=== PATIENT | male | born 1945 | race Caucasian/White ===

== ENCOUNTER → 2017-11-23 | Outpatient (CLI) | payer OTHER ==
--- NOTE | 2017-11-23 08:36 | XR ---
EXAMINATION TYPE: XR orbit detect foreign body DATE OF EXAM: 11/23/2017 COMPARISON: NONE HISTORY: Pre-MRI clearance. TECHNIQUE: 3 views of the orbits were obtained. FINDINGS: No radiopaque or metallic foreign body is seen within the orbits. There is minimal dependen t left maxillary sinus mucosal thickening. Remainder of the paranasal sinuses appear well aerated. Th ere is slight rightward nasal septal deviation. Sella turcica is unremarkable. Visualized portions o f the calvarium and osseous structures appear intact. Nasopharynx and visualized oropharynx are paten t. IMPRESSION: No radiopaque orbital foreign body. Scant left maxillary mucosal thickening.
--- NOTE | 2017-11-23 10:47 | MR ---
EXAMINATION TYPE: MR shoulder LT wo con DATE OF EXAM: 11/23/2017 COMPARISON: NONE HISTORY: Left shoulder pain TECHNIQUE: Multiplanar, multisequence imaging of the left shoulder is performed without contrast. FINDINGS: There is a partial tear involving the insertion of the posterior fibers infraspinatus tendon measurin g 1 x 0.5 cm. No evidence of retraction. There is a partial through thickness tear measuring 14 mm involving the body and anterior fibers of t he supraspinatus tendon with no evidence of retraction. Subscapularis tendon intact. Intrasubstance signal seen within the intracapsular portion of the biceps tendon suggestive of tendin osis or partial intrasubstance tear. No retraction. Inferior glenohumeral ligament intact. No abnormal signal within the suprascapular notch. No marrow edema or contusion. There is hypertrophic change of the AC joint which does appear to resul t in mild impingement of the supraspinatus muscle and tendon. There is abnormal signal and morphology of the posterior superior labrum suggestive of tear. IMPRESSION: 1. Partial through thickness tear measuring 14 mm involving the body and anterior fibers supraspinatu s tendon with no retraction. 2. Partial non through thickness tear insertion posterior fibers infraspinatus tendon measuring 1 x 0 .5 cm. 3. Posterior superior labral tear. SLAP lesion suspected. 4. Arthropathy of the AC joint.
== END | disposition home or self-care (01) ==
LOC: RADMRIMAIN 08:16
PROVIDERS: ATTEND Orthopaedic Surgery
DX: S46.812A Strain of other muscles, fascia and tendons at shoulder and upper arm level, left arm, initial encounter (principal); S43.492A Other sprain of left shoulder joint, initial encounter; M12.812 Other specific arthropathies, not elsewhere classified, left shoulder; Z01.818 Encounter for other preprocedural examination
CPT/HCPCS: 70030

== ENCOUNTER 2018-01-05 06:08 | Day surgery (SDC) | payer OTHER ==
[2017-12-28 16:51] VITALS: BMI 34.0
--- NOTE | 2018-01-04 12:31 | HP ---
HISTORY AND PHYSICAL DATE OF SERVICE: 01/05/2018 Niko Owen is a 72-year-old patient seen with left shoulder pain. We discussed treatment options. He elected to proceed with arthroscopy. Consent was obtained. Medical clearance was received from the [facility]. PAST MEDICAL HISTORY: Hypertension and insulin-dependent diabetes, gastroesophageal reflux disease, hyperlipidemia. PAST SURGICAL HISTORY: Right eye surgery. DAILY MEDICATIONS: 1. Atenolol. 2. Glipizide. 3. Metformin. 4. Omeprazole. 5. Pravastatin. 6. Tramadol. ALLERGIES: None reported. SOCIAL HISTORY: Patient denies current tobacco use. PHYSICAL EVALUATION OF THE LEFT SHOULDER: Flexion 90 degrees, abduction 70 degrees, external rotation is 50 degrees with pain and weakness. There is tenderness along the anterolateral acromion rotator cuff insertion site. Positive impingement sign at 70 degrees. Drop-arm sign positive. Distal neurovascular exam intact. RADIOGRAPHS: Left shoulder revealed a type 2 anterior acromion and cystic changes of the greater tuberosity. An MRI of the left shoulder revealed rotator cuff tear, labral tear and acromioclavicular joint osteoarthritis. IMPRESSION: 1. Left shoulder impingement with rotator cuff tear. 2. Left shoulder acromioclavicular joint osteoarthritis. 3. Hypertension. 4. Cei-xjqqesp-ahguvntmq diabetes. 5. Hyperlipidemia. PLAN: Left shoulder arthroscopy with subacromial decompression, probable arthroscopic rotator cuff repair, probable Osmar procedure and debridement. MMODL / IJN: [id number] /
[~2018-01-05 06:08] MED LIST: DEXAMETHASONE SOD PHOSPHATE 10 MG/ML 1 ML VIAL IV ONE; HYDROmorphone 0.5 MG/0.5 ML SYRINGE IVP PRN; LACTATED RINGERS 1,000 ML IV SCH; MIDAZOLAM 2 MG/2 ML VIAL IV PRN; ONDANSETRON 4 MG/2 ML VIAL IVP ONE; ceFAZolin IN SWFI 2 GM/20 ML SYRINGE IVP ONE
[2018-01-05 06:44] LABS: Glucose,Whole Blood 187 mg/dL (75-99)
[2018-01-05] MEDS ORDERED: LIDOCAINE 1% 20 ML VIAL (10MG/ML) FOR IV START INTRADERMA ONE (06:54)
[2018-01-05] MEDS ORDERED: fentaNYL (PF) 50 MCG/ML 2 ML AMP IV ONE (07:09)
--- NOTE | 2018-01-05 07:18 | P.ONQ ---
Anesthesiology Proc Note - PNB - Peripheral Nerve Block Performed Left Interscalene Single Time Out Performed: Yes Procedure Start Time: 07:00 Indication: Acute Post-Operative Pain, Analgesia Specifically requested for management of pain by DrCriss: Raheel Dangelo Sedation Type: Sedate with meaningful contact maintained Preparation: Sterile Prep Position: Supine Catheter: None Needle Types: Other (see comment) (stimuplex) Needle Size: 50mm (2") Needle Gauge: 21 Technique: Ultrasound Injectate: 0.5% Ropivacaine (see comment for volume) (30cc) Blood Aspirated: No Pain Paresthesia on Injection Noted: No Resistance on Injection: Normal Events: Uneventful and Well Tolerated
[2018-01-05] MEDS ORDERED: PHENYLEPHRINE-0.9% NACL SYG 1 MG/10 ML SYRINGE ONE (07:30)
[2018-01-05] MEDS ORDERED: ROPIVACAINE 5 MG/ML 30 ML VIAL ONE (07:30)
[2018-01-05] MEDS ORDERED: LIDOCAINE 1% INJ 10MG/ML (20 ML MDV) ONE (07:30)
[2018-01-05] MEDS ORDERED: SUCCINYLCHOLINE CHLORIDE 100 MG/5 ML SYR IV ONE (07:30)
[2018-01-05] MEDS ORDERED: PROPOFOL 10 MG/ML 20 ML VIAL IV ONE (07:30)
[2018-01-05] MEDS ORDERED: KETOROLAC 30 MG/ML 1 ML VIAL ONE (07:30)
[2018-01-05] MEDS ORDERED: ePHEDrine SULFATE/0.9% NACL/PF 50 MG/5 ML SYRINGE IV ONE (07:30)
[2018-01-05] MEDS ORDERED: LIDOCAINE 2%-EPI 1:100,000 20 ML VIAL ONE (07:30)
[2018-01-05] MEDS ORDERED: MIDAZOLAM 2 MG/2 ML VIAL ONE (07:30)
[2018-01-05] MEDS ORDERED: fentaNYL (PF) 50 MCG/ML 2 ML AMP ONE (07:30)
[2018-01-05] MEDS ORDERED: LACTATED RINGERS 1,000 ML IV ONE (08:59)
[2018-01-05 09:16] VITALS: TEMP 97.1
--- NOTE | 2018-01-05 09:21 | P.OP ---
Date of Procedure: 01/05/18 Preoperative Diagnosis: Left shoulder impingement Postoperative Diagnosis: 1. Left shoulder rotator cuff repair 2. Left shoulder impingement 3. Left shoulder acromioclavicular joint osteoarthritis 4. Left shoulder partial long head biceps tendon tear 5. Left shoulder superficial anterior/superior labral tear Procedure(s) Performed: 1. Left shoulder arthroscopic rotator cuff repair 2. Left shoulder arthroscopic subacromial decompression 3. Left shoulder arthroscopic Osmar procedure 4. Left shoulder arthroscopic biceps tenotomy 5. Left shoulder arthroscopic debridement labral tear Implants: 1-5.5 peek anchor Anesthesia: GETA, regional (Interscalene block) Surgeon: Raheel Dangelo Human Resources Operations Coordinator #1: Chaz Tran Estimated Blood Loss (ml): 12 Pathology: none sent Condition: stable Disposition: PACU Indications for Procedure: 72-year-old patient seen with progressive left shoulder pain. After treatment options were discussed, he elected to proceed with arthroscopy. Operative Findings: See description of procedure Description of Procedure: Patient underwent a shoulder block by department of anesthesia. The patient was then taken to the operative suite. The patient underwent a general anesthetic by the department of anesthesia. The patient was placed into a lateral position and secured. There was appropriate padding of the bony prominence. Left shoulder was then prepped and draped in normal sterile orthopedic fashion. We placed the extremity in 10 pounds of longitudinal traction. A posterior incision was now made for a posterior working portal site. The trocar and cannula were inserted into the glenohumeral joint. Arthroscopy was initiated. Spinal needle was now inserted anteriorly, to ascertain the anterior working portal site. An incision was now made in that area, a trocar was inserted followed by a probe. There was superficial tearing of the anterior and superior labrum. There were grade 1 chondromalacia changes of glenohumeral joint. No osteochondral tears were present. The posterior and inferior labrum were intact. There was some partial tearing and hyperemia long head biceps tendon. No loose bodies. I performed an arthroscopic biceps tenotomy. I debrided the superficial labral tears down to stable tissue. The residual labrum was found to be stable. Instruments were now removed from the glenohumeral joint. Utilizing the posterior working portal site, the trocar and cannula were inserted into the subacromial space. Arthroscopy initiated. I made an incision 2 fingerbreadths lateral to the acromion. I introduced my trocar followed by my ArthroCare ablator. I now began ablating thick subacromial bursal tissue, which exposed the undersurface of the anterior acromion. This was diminished subacromial space. There was a very prominent anterior acromion. A motorized bur was introduced and a subacromial decompression was performed. I also excised some osteophytes off the inferior aspect of the distal clavicle. The AC joint was visualized and noted to be fairly arthritic. Our motorized bur was introduced in the anterior portal site and a Osmar procedure was performed without difficulty, decompressing the AC joint nicely. I turned my attention to the rotator cuff. There was a rotator cuff tendon present along the anterior aspect distal supraspinatus. I debrided the margins down to stable tissue. The tear measured 1-1.5 cm and it was freely mobile over the footprint. I abraded the footprint with a motorized bur. I now passed 2 everted mattress sutures through good bites of rotator cuff tendon. I now repaired that tendon back to the footprint with one single 5.5 peek anchor. The residual suture limbs were clipped. The repair was probed and found to be stable. I injected 1 mL of UCT intra-articular. Instruments now removed from the portal sites. All portal sites were approximated with nylon suture. Sterile dressings were applied followed by a shoulder immobilizer. Montrell WHITE assisted with the procedure. The patient was awakened, transferred to a bed, and taken to recovery in stable condition.
[2018-01-05 09:26] LABS: Glucose,Whole Blood 188 mg/dL (75-99)
[2018-01-05 10:47] VITALS: BP 139/82; PULSE 82; RESP 20
== END 2018-01-05 11:17 | disposition home or self-care (01) ==
LOC: OR 06:08
PROVIDERS: ATTEND Orthopaedic Surgery
DX: M75.102 Unspecified rotator cuff tear or rupture of left shoulder, not specified as traumatic (principal); M25.812 Other specified joint disorders, left shoulder; M19.012 Primary osteoarthritis, left shoulder; S46.112A Strain of muscle, fascia and tendon of long head of biceps, left arm, initial encounter; S43.432A Superior glenoid labrum lesion of left shoulder, initial encounter; M94.212 Chondromalacia, left shoulder; M25.712 Osteophyte, left shoulder; X58.XXXA Exposure to other specified factors, initial encounter; I10 Essential (primary) hypertension; E11.9 Type 2 diabetes mellitus without complications; Z79.4 Long term (current) use of insulin; K21.9 Gastro-esophageal reflux disease without esophagitis; Z87.891 Personal history of nicotine dependence; Z79.899 Other long term (current) drug therapy; Z79.1 Long term (current) use of non-steroidal anti-inflammatories (NSAID)
CPT/HCPCS: 64415; 29826; 29827; 29824; C1713; C1765; J2250; J1100; J2405; J2001; J3010; J1885; J2795; J2370; J0330; J2704; J0690

== ENCOUNTER → 2019-02-24 | Outpatient (CLI) | payer OTHER | LOC: LABPAT 13:34 | PROVIDERS: ATTEND Orthopaedic Surgery | DX: Z01.812 Encounter for preprocedural laboratory examination (principal) | CPT/HCPCS: 87070 ==

== ENCOUNTER 2019-03-27 10:57 | Inpatient (IN) | payer OTHER ==
--- NOTE | 2019-03-26 17:08 | HP ---
HISTORY AND PHYSICAL REASON FOR ADMISSION: Surgery is scheduled for 03/27/2019 HISTORY OF PRESENT ILLNESS: Niko Owen is a 73-year-old patient seen with symptomatic left knee osteoarthritis. We discussed options for treatment. He elected to proceed with left total knee arthroplasty. Consent regarding the procedure was obtained. Medical clearance was provided through the [facility]. PAST MEDICAL HISTORY: Tyq-wwpvmdt-cxdfqcbgk dependent diabetes, hyperlipidemia, hypertension, gastroesophageal reflux disease. PAST SURGICAL HISTORY: Eye surgery. MEDICATIONS: Atenolol, glipizide, metformin, omeprazole, pravastatin. ALLERGIES: None. SOCIAL HISTORY: Denies current tobacco use. PHYSICAL EXAMINATION: Evaluation of the left knee range of motion is negative 4 to 110 degrees. Moderate effusion. Tenderness medial joint line. Crepitus medial and patellofemoral compartments. Pain with patellofemoral compression. Ligaments stable. Hip rotation without pain. Distal neurovascular exam intact. RADIOGRAPHS: Left knee radiographs reveal severe medial moderate patellofemoral compartment osteoarthritis. IMPRESSION: 1. Left knee osteoarthritis. 2. Hypertension. 3. Hyperlipidemia. 4. Gastroesophageal reflux disease. 5. Hnc-fkazywi-ttdylifzg diabetes. PLAN: Left total knee arthroplasty. Surgery scheduled for 03/27/2019 MMODL / IJN: [id number] /
[~2019-03-27 10:57] MED LIST changes: +ACETAMINOPHEN TAB 500 MG TAB PO ONE; -HYDROmorphone 0.5 MG/0.5 ML SYRINGE IVP PRN; -LACTATED RINGERS 1,000 ML IV SCH; +LIDOCAINE 1% 20 ML VIAL (10MG/ML) FOR IV START INTRADERMA PRN; +MELOXICAM 7.5 MG TAB PO ONE; +TRANEXAMIC ACID 1,000 MG in SODIUM CHLORIDE 0.9% 100 ML IVPB ONE; +ceFAZolin 3 GM in SODIUM CHLORIDE 0.9% 100 ML IVPB ONE; -ceFAZolin IN SWFI 2 GM/20 ML SYRINGE IVP ONE; +fentaNYL (PF) 50 MCG/ML 2 ML AMP IV PRN
[2019-03-27] MEDS: LACTATED RINGERS 1,000 ML IV SCH ×2 (11:56→16:52)
[2019-03-27 12:01] LABS: Glucose,Whole Blood 168 mg/dL (75-99)
[2019-03-27] MEDS ORDERED: ROPIVACAINE 246.25 MG, EPINEPHrine 0.5 MG, KETOROLAC 30 MG, cloNIDine HCL/PF 80 MCG, WA... MISCELLANE ONE ×5 (12:15)
[2019-03-27] MEDS ORDERED: MIDAZOLAM (PF) 2 MG/2 ML VIAL IVP ONE (12:24)
[2019-03-27] MEDS ORDERED: TRANEXAMIC ACID 1,000 MG/10 ML VIAL ONE (13:05)
[2019-03-27] MEDS ORDERED: fentaNYL (PF) 50 MCG/ML 2 ML AMP ONE (13:05)
[2019-03-27] MEDS ORDERED: MORPHINE SULFATE 10 MG/ML SYRINGE ONE (13:05)
[2019-03-27] MEDS ORDERED: PROPOFOL 10 MG/ML 20 ML VIAL IV ONE (13:05)
[2019-03-27] MEDS ORDERED: SODIUM CHLORIDE 0.9% 100 ML BAG ONE (13:05)
[2019-03-27] MEDS ORDERED: MIDAZOLAM 2 MG/2 ML VIAL ONE (13:05)
[2019-03-27] MEDS ORDERED: ceFAZolin 3,000 MG in SODIUM CHLORIDE 0.9% IRRIGATIO 3,000 ML IRRIGATION ONE (13:49)
[2019-03-27] MEDS ORDERED: LACTATED RINGERS 1,000 ML IV ONE (14:01)
[2019-03-27] MEDS ORDERED: ROPIVACAINE 1,100 MG, SODIUM CHLORIDE 0.9% 500 ML 330 ML MISCELLANE PRN ×2 (14:45)
--- NOTE | 2019-03-27 14:55 | P.ONQ ---
Anesthesiology Proc Note - PNB - Peripheral Nerve Block Performed Left Adductor Canal Infusion Time Out Performed: Yes Procedure Start Time: 12:24 Procedure Stop Time: 12:33 Indication: Acute Post-Operative Pain, Requested by physician Sedation Type: Sedate with meaningful contact maintained Preparation: Sterile Dressing Position: Supine Catheter: Indwelling Needle Types: On-Q Needle Size: 100mm (4") Needle Gauge: 21 Technique: Ultrasound Injectate: 0.5% Ropivacaine (see comment for volume) (ropi .5% 30cc) Blood Aspirated: No Pain Paresthesia on Injection Noted: No Resistance on Injection: Normal Events: Uneventful and Well Tolerated
[2019-03-27] MEDS ORDERED: HYDROcodone/APAP 5-325MG 1 EACH TAB PO PRN (15:11)
[2019-03-27] MEDS ORDERED: ONDANSETRON 4 MG/2 ML VIAL IVP PRN (15:11)
[2019-03-27] MEDS ORDERED: HYDROmorphone 0.5 MG/0.5 ML SYRINGE IVP PRN ×3 (15:11)
[2019-03-27] MEDS ORDERED: NALOXONE 0.4 MG/ML 1 ML VIAL IV PRN (15:11)
--- NOTE | 2019-03-27 15:11 | P.OP ---
Date of Procedure: 03/27/19 Preoperative Diagnosis: Left knee osteoarthritis Postoperative Diagnosis: Left knee osteoarthritis Procedure(s) Performed: Left total knee arthroplasty Implants: 1. Microport evolution CR size 7 left cemented femur 2. Microport evolution size 7 left cemented tibial baseplate 3. Microport evolution size 7 MP CS 10 mm polyethylene tibial insert 4. Microport advance 41 mm all polyethylene cemented patella Anesthesia: regional (Adductor canal catheter), local, spinal Surgeon: Raheel Dangelo X Ray Operator #1: Chaz Tran Estimated Blood Loss (ml): 50 Pathology: other (Bone) Condition: stable Disposition: PACU Indications for Procedure: 73-year-old patient seen with symptomatic left knee osteoarthritis. After treatment options were discussed, he elected to proceed with total knee arthroplasty. Operative Findings: See description of procedure Description of Procedure: Patient was taken to the operative suite after having an adductor canal catheter placed by the department of anesthesia for postoperative pain management. Patient underwent a spinal anesthetic by the department of anesthesia. Patient was given preoperative IV intake antibiotics and TXA. A well-padded tourniquet was placed about the left lower extremity. The lower extremity was then prepped and draped in the normal sterile orthopedic fashion. The extremity was elevated, a tourniquet was insufflated to 300. A standard anterior incision was made sharply through skin. Dissection was taken down through the subcutaneous soft tissues down to the extensor mechanism. A medial arthrotomy was performed, patella was everted and knee was flexed. There was advanced osteoarthritis noted. I introduced my distal intramedullary femoral drill. I then introduced the distal femoral cutting jig. Montrell WHITE secured the cutting jig with 2 pins. I held retractors in position while Montrell WHITE performed the distal femoral resection through the guide area we now removed her distal femoral cutting guide. We now placed our 4-in-1 femoral cutting block and positioned and it was secured with 2 pins by Montrell WHITE while I held the block in position. The distal femoral finishing was now completed. A proximal tibial cutting guide was positioned. I held the guide in the appropriate position with both hands well Montrell WHITE inserted stabilizing pins into the guide. Proximal tibial cut was made. We now placed a trial femoral component into position, along with an appropriate size tibial tray and insert. We now took the knee through range of motion and had full extension good flexion and good overall soft tissue balance noted. The patella was everted and stabilized with 2 towel clips held by Montrell WHITE while I performed a flush with patellar quad tendon utilizing a fresh sawblade. We templated the patella, appropriate drill holes were made. An appropriate trial patella was positioned, knee was taken through full range of motion with the patella tracking very nicely. The trial patella was removed. Drill holes were made through the femoral component. All trial components were removed after marking off the appropriate rotation of the tibia. Retractors were now positioned along the proximal tibia. An appropriate keel punch was made with the appropriate size tibial guide by myself on Montrell WHITE assisted by holding retractors. At this point appropriate size implants were chosen and opened. The joint was irrigated copiously with pulse lavage mechanical irrigation. The posterior capsule was infiltrated with local analgesic. The wound was irrigated with pulse lavage mechanical irrigation. We mixed antibiotic methylmethacrylate. We placed the knee into flexion. We placed multiple retractors assisted by Montrell WHITE to expose the proximal tibia. Once the methyl methacrylate was ready, the tibial component was cemented into place removing any excess methylmethacrylate form by both myself and Montrell WHITE. The femoral component was cemented into place removing the removing any excess methylmethacrylate performed by both myself and Montrell WHITE. We then inserted the appropriate size polyethylene tibial insert. We made sure that it was locked into position. We took the knee into full extension, and then back in a flexion making sure we had removed any excess methylmethacrylate. The patellar component was then cemented down and secured with clamp. Excess methylmethacrylate removed. We kept the knee in full extension, patellar clamp in position until methylmethacrylate had hardened. Once it had hardened the patellar clamp was removed. The knee was taken through full range of motion. The patella tracked nicely. There was good soft tissue balancing. The tourniquet was now released. Additional hemostasis was achieved via electrocautery. A second gram of TXA was given. The wound again was irrigated with pulse lavage mechanical irrigation. The superficial soft tissues were infiltrated local analgesic. The extensor mechanism was repaired with Vicryl. We checked the repair with range of motion and it was stable. The subcutaneous soft tissues were repaired with Vicryl in layers. The skin was ap proximated with pernio/Dermabond. Sterile dressings were applied followed by loose web roll and Del bandage. The patient was transferred to a bed, and taken to recovery in stable and satisfactory condition. Montrell WHITE assisted with this complex procedure.
--- NOTE | 2019-03-27 16:02 | XR ---
EXAMINATION TYPE: XR knee limited LT DATE OF EXAM: 03/27/2019 CLINICAL HISTORY: Postoperative evaluation Two views of the left knee are submitted. Identified are changes of total knee arthroplasty with fem oral and tibial components appearing well seated. Postsurgical soft tissue changes are noted. Align ment is anatomic.
[2019-03-27 16:06] LABS: Glucose,Whole Blood 175 mg/dL (75-99)
[2019-03-27 16:38] VITALS: BMI 48.8
[2019-03-27 17:15] LABS: Glucose,Whole Blood 217 mg/dL (75-99)
[2019-03-27] MEDS: INSULIN ASPART (NovoLOG) 100 UNIT/ML VIAL SQ SCH ×2 (17:45→22:37)
[2019-03-27] MEDS: GABAPENTIN 100 MG CAP PO SCH ×2 (17:54→22:30)
[2019-03-27] MEDS: traMADol 50 MG TAB PO PRN (20:29)
[2019-03-27] MEDS: TAMSULOSIN 0.4 MG CAP.ER.24H PO SCH (20:30)
[2019-03-27 21:28] LABS: Glucose,Whole Blood 279 mg/dL (75-99)
[2019-03-27] MEDS: ceFAZolin IN SWFI 2 GM/20 ML SYRINGE IVP SCH (22:29)
[2019-03-27] MEDS: SENNOSIDES-DOCUSATE SODIUM 1 EACH TAB PO SCH (22:30)
[2019-03-27] MEDS: HYDROcodone/APAP 7.5-325MG 1 EACH TAB PO PRN (22:30)
[2019-03-27] MEDS: ENOXAPARIN 30 MG/0.3 ML SYRINGE SQ SCH (22:30)
[2019-03-27] MEDS: ATORVASTATIN 10 MG TAB PO SCH (22:30)
[2019-03-27] MEDS: metFORMIN 500 MG TAB PO SCH (22:30)
[2019-03-28] MEDS: traMADol 50 MG TAB PO PRN ×4 (03:18→20:10)
[2019-03-28] MEDS: LACTATED RINGERS 1,000 ML IV SCH ×3 (04:08→17:02)
[2019-03-28] MEDS: ceFAZolin IN SWFI 2 GM/20 ML SYRINGE IVP SCH (04:57)
[2019-03-28] MEDS: HYDROcodone/APAP 7.5-325MG 1 EACH TAB PO PRN ×4 (04:57→22:19)
[2019-03-28] MEDS: INSULIN ASPART (NovoLOG) 100 UNIT/ML VIAL SQ SCH ×4 (07:01→21:01)
[2019-03-28] MEDS: CHOLECALCIFEROL 1,000 UNIT TAB PO SCH (07:14)
[2019-03-28] MEDS: ATENOLOL 50 MG TAB PO SCH (07:14)
[2019-03-28] MEDS: metFORMIN 500 MG TAB PO SCH ×2 (07:14→21:01)
[2019-03-28] MEDS: LINAGLIPTIN 5 MG TABLET PO SCH (07:15)
[2019-03-28] MEDS: LISINOPRIL 10 MG TAB PO SCH (07:15)
[2019-03-28] MEDS: GABAPENTIN 100 MG CAP PO SCH ×3 (07:15→21:01)
[2019-03-28] MEDS: PANTOPRAZOLE 40 MG TABLET PO SCH (07:15)
[2019-03-28] MEDS: ENOXAPARIN 30 MG/0.3 ML SYRINGE SQ SCH ×2 (07:17→21:01)
--- NOTE | 2019-03-28 07:18 | P.PN ---
Progress Note - Text 03/28 700am 73-year-old male status post total knee replacement by Dr. Dangelo. Patient has an On-Q pump with solution running at 8 mL an hour with a VAS of 2. Plan to continue On-Q pump infusion
[2019-03-28 07:35] LABS: Glucose,Whole Blood 118 mg/dL (75-99)
--- NOTE | 2019-03-28 07:48 | CONS ---
CONSULTATION DATE OF SERVICE: 03/27/2019. REASON FOR CONSULTATION: To help in decision in advice regarding diabetes and other multiple medical issues requested by Orthopedic Surgery. HISTORY OF PRESENT ILLNESS: This is a 73-year-old gentleman with the past history of diabetes, GERD, hypertension, hyperlipidemia, possible prostate issues being followed by Dr. Mustafa in the outpatient setting, underwent left total knee arthroplasty by Dr. Dangelo. The patient was closely monitored. There is no history of fever, chills or rigors. There is no history of headache, loss of consciousness, chest pain, palpitation. Patient has of numbness after surgery. Otherwise, the patient is also suspected to have urinary retention also. No chest pain. No palpitations. No fever. PAST MEDICAL HISTORY: History of diabetes, GERD, hyperlipidemia, DJD. MEDICATIONS: Prior to admission include home medications are: 1. Ultram 50 mg p.o. q.i.d. 2. Glucophage 1000 mg b.i.d. 3. Glucotrol 7.5 b.i.d. 4. Zocor 5 mg q.h.s.. 5. Prilosec 20 mg daily. 6. Zestril 10 mg q.a.m. 7. Neurontin 100 mg p.o. t.i.d. 8. Vitamin D 3000 daily. 9. Tenormin 50 mg q.a.m. 10.Gliptin 25 mg q.a.m. ALLERGIES: None. FAMILY HISTORY: History of cancer in the family. SOCIAL HISTORY: History of smoking. No history of alcohol intake. REVIEW OF SYSTEMS: ENT: No diminished vision or hearing. CARDIOVASCULAR: No angina. RESPIRATION: As mentioned earlier. GI: No nausea. : No dysuria. NERVOUS SYSTEM: No numbness or weakness. MUSCULOSKELETAL: As mentioned earlier. HEMATOLOGY: No history of anemia. ENDOCRINE: Diabetes mellitus. CONSTITUTIONAL: Negative. DERMATOLOGY: Negative. RHEUMATOLOGY: Negative. PSYCHIATRY: As mentioned earlier. PHYSICAL EXAMINATION: Alert and oriented x3. Pulse is 60, blood pressure 120/70, respiration 20, temp is normal, pulse ox normal. HEENT: Normal. NECK: No jugular venous distension. CARDIOVASCULAR: S1, S2, muffled. RESPIRATORY: Breath sounds diminished at the bases, no rhonchi, no crackles. ABDOMEN: Soft, nontender. No mass palpable. LEGS: No edema. Status post surgery. NERVOUS SYSTEM: Higher functions as mentioned earlier. Moves all 4 limbs, no focal motor deficits. LYMPHATICS: No lymph node enlargement. SKIN: No ulcer, rash, bleeding. JOINTS: As mentioned earlier. LABS: The previous labs are not available. Accu-Cheks 217. ASSESSMENT: 1. Status post left total knee arthroplasty for severe degenerative joint disease. 2. Diabetes mellitus type 2. 3. Gastroesophageal reflux disease. 4. Hypertension. 5. Hyperlipidemia. 6. History of degenerative joint disease. 7. History of tonsillectomy. 8. Remote history of nicotine dependence. 9. Possible benign prostatic hypertrophy. 10.FULL CODE. 11.Obesity with body mass of 49.8. RECOMMENDATION: In this 73-year-old gentleman who presented with multiple medical issues. We will monitor the patient closely. Continue the current management. Resume the home medications. DVT prophylaxis. Monitor blood sugars closely. Also recommend Flomax also. Otherwise, intermittent catheterization may be may be done for any possible urinary retention. Will follow the patient closely. Thank you, Dr. Dangelo, for letting us participate with this patient. The patient may be asked to follow up with the primary physician closely after discharge. MMODL / IJN: [id number] /
[2019-03-28 08:11] LABS: Basophils % (A) 0 %; Eosinophils # (A) 0.1 k/uL (0-0.7); Eosinophils % (A) 1 %; HCT 37.5 % (39.0-53.0); HGB 12.7 gm/dL (13.0-17.5); Lymphocytes # (A) 1.9 k/uL (1.0-4.8); Lymphocytes % (A) 17 %; MCH 28.7 pg (25.0-35.0); MCHC 33.9 g/dL (31.0-37.0); MCV 84.6 fL (80.0-100.0); Mean Platelet Volume 8.2; Monocytes # (A) 0.5 k/uL (0-1.0); Monocytes % (A) 4 %; Neutrophils # (A) 8.6 k/uL (1.3-7.7); Neutrophils % (A) 76 %; Platelet Count 135 k/uL (150-450); RBC 4.44 m/uL (4.30-5.90); RDW 14.1 % (11.5-15.5); WBC 11.2 k/uL (3.8-10.6)
--- NOTE | 2019-03-28 11:06 | P.PN ---
Subjective Progress Note Date: 03/28/19 Principal diagnosis: Status post left total knee arthroplasty Patient evaluated today at bedside, he's doing fairly well. He hasn't been up with therapy. Patient's pain is currently controlled, notes more anterior discomfort. Denies any chest pain or shortness of breath. Objective - Vital Signs Vital signs: Vital Signs Temp 98.0 F 03/28/19 06:50 Pulse 65 03/28/19 06:50 Resp 16 03/28/19 06:50 BP 118/70 03/28/19 06:50 Pulse Ox 96 03/28/19 06:50 Intake & Output 03/27/19 03/28/19 03/28/19 18:59 06:59 18:59 Intake Total 1701 640 Output Total 50 600 Balance 1651 40 Intake: IV 1701 Intake, IV Titration 640 Amount Lactated Ringers 1,000 ml 640 @ 80 mls/hr IV .[id number] Rx#:[id number] Output: Urine 600 Estimated Blood Loss 50 Other: Voiding Method Urinal - Exam Left lower extremity: Incision is clean, dry, and intact. The exofin fusion tape is in good con dition. There is minimal soft tissue swelling and ecchymosis surrounding the medial and lateral aspects of the incision. Calf is soft, no tenderness with palpation. Plantar flexion, dorsiflexion, EHL, FHL are intact. Sensory exam to light touch throughout the extremity is intact, dorsal pedis pulses 2+. - Labs CBC & Chem 7: 03/28/19 07:22 Labs: Abnormal Lab Results - Last 24 Hours (Table) 03/27/19 03/27/19 03/27/19 Range/Units 11:51 16:03 17:13 WBC (3.8-10.6) k/uL Hgb (13.0-17.5) gm/dL Hct (39.0-53.0) % Plt Count (150-450) k/uL Neutrophils # (1.3-7.7) k/uL POC Glucose (mg/dL) 168 H 175 H 217 H (75-99) mg/dL 03/27/19 03/28/19 03/28/19 Range/Units 21:16 06:54 07:22 WBC 11.2 H (3.8-10.6) k/uL Hgb 12.7 L (13.0-17.5) gm/dL Hct 37.5 L (39.0-53.0) % Plt Count 135 L (150-450) k/uL Neutrophils # 8.6 H (1.3-7.7) k/uL POC Glucose (mg/dL) 279 H 118 H (75-99) mg/dL Assessment and Plan Plan: Assessment: Postoperative day 1 status post left total knee arthroplasty Plan: Pain control, will adjust oral medication at this time GI and DVT prophylaxis, continue current medication Continue work physical therapy Icing and elevating often Encourage incentive spirometer Medical recommendations Due to patient's pain control and difficulty with ambulating, we'll make patient inpatient status. Hopeful discharge home tomorrow Time with Patient: Less than 30
[2019-03-28 11:33] LABS: Glucose,Whole Blood 179 mg/dL (75-99)
[2019-03-28 16:52] LABS: Glucose,Whole Blood 262 mg/dL (75-99)
[2019-03-28] MEDS: TAMSULOSIN 0.4 MG CAP.ER.24H PO SCH (17:02)
[2019-03-28 20:29] LABS: Glucose,Whole Blood 157 mg/dL (75-99)
[2019-03-28] MEDS: SENNOSIDES-DOCUSATE SODIUM 1 EACH TAB PO SCH (21:01)
[2019-03-28] MEDS: ATORVASTATIN 10 MG TAB PO SCH (21:01)
--- NOTE | 2019-03-28 23:13 | PN ---
PROGRESS NOTE DATE OF SERVICE: 03/28/2019. HISTORY: This 73-year-old gentleman was admitted after knee surgery, also had urinary difficulty last night. The patient appears to be significantly improved. No chest pain. No palpitations. No fever. The blood sugar is also being closely monitored. EXAM: Alert and oriented x3. Pulse 74, blood pressure 130/60, respirations 16, temperature 98.4, pulse ox 98% on room air. HEENT conjunctivae normal. NECK: Supple. CARDIOVASCULAR: S1 and S2 muffled. LUNGS: Breath sounds diminished at the bases. No rhonchi, no crackles. ABDOMEN: Soft. EXTREMITIES: Legs status post knee surgery. NERVOUS SYSTEM: No focal deficits. LABS: WBC 11, hemoglobin 12.7. ASSESSMENT: 1. Status post left total knee arthroplasty for severe degenerative joint disease. 2. Diabetes mellitus type 2. 3. History of gastroesophageal reflux disease. 4. Hypertension. 5. History of degenerative joint disease. 6. History of tonsillectomy. 7. Remote history of nicotine dependence. 8. Possible BPH. 9. Obesity with body mass of 14.2. 10.FULL CODE. RECOMMENDATIONS AND DISCUSSION: I recommend to continue current medications. Incentive spirometry. Otherwise DVT prophylaxis. I would also recommend a hemoglobin A1c. Continue the scale for now. Further recommendations to follow. MMODL / IJN: [id number] /
[2019-03-29] MEDS: HYDROcodone/APAP 7.5-325MG 1 EACH TAB PO PRN ×3 (04:55→18:30)
[2019-03-29 05:44] LABS: Hemoglobin A1C 7.2 % (4.0-6.0)
[2019-03-29 07:08] LABS: Glucose,Whole Blood 145 mg/dL (75-99)
[2019-03-29] MEDS: LACTATED RINGERS 1,000 ML IV SCH ×2 (08:58)
[2019-03-29] MEDS: metFORMIN 500 MG TAB PO SCH ×2 (09:10→21:35)
[2019-03-29] MEDS: CHOLECALCIFEROL 1,000 UNIT TAB PO SCH (09:10)
[2019-03-29] MEDS: LISINOPRIL 10 MG TAB PO SCH (09:10)
[2019-03-29] MEDS: GABAPENTIN 100 MG CAP PO SCH ×3 (09:10→21:36)
[2019-03-29] MEDS: PANTOPRAZOLE 40 MG TABLET PO SCH (09:10)
[2019-03-29] MEDS: LINAGLIPTIN 5 MG TABLET PO SCH (09:10)
[2019-03-29] MEDS: ENOXAPARIN 30 MG/0.3 ML SYRINGE SQ SCH ×2 (09:10→21:34)
[2019-03-29] MEDS: ATENOLOL 50 MG TAB PO SCH (09:10)
[2019-03-29] MEDS: INSULIN ASPART (NovoLOG) 100 UNIT/ML VIAL SQ SCH ×4 (09:10→21:35)
[2019-03-29 11:44] LABS: Glucose,Whole Blood 169 mg/dL (75-99)
[2019-03-29] MEDS: KETOROLAC 30 MG/ML 1 ML VIAL IVP PRN ×2 (12:06→18:30)
--- NOTE | 2019-03-29 12:15 | P.PN ---
Subjective Progress Note Date: 03/29/19 Principal diagnosis: Status post left total knee arthroplasty Patient evaluated today at bedside, he's doing fairly well. Patient still notes discomfort involving the knee. He is having a hard time ambulating with therapy. Denies any chest pain or shortness of breath. Objective - Vital Signs Vital signs: Vital Signs Temp 98.6 F 03/29/19 07:42 Pulse 75 03/29/19 07:42 Resp 18 03/29/19 07:42 BP 143/79 03/29/19 07:42 Pulse Ox 92 L 03/29/19 07:42 Intake & Output 03/28/19 03/29/19 03/29/19 18:59 06:59 18:59 Other: Voiding Method Urinal # Voids 3 3 - Exam Left lower extremity: Incision is clean, dry, and intact. The exofin fusion tape is in good condition. There is minimal soft tissue swelling and ecchymosis surrounding the medial and lateral aspects of the incision. Calf is soft, no tenderness with palpation. Plantar flexion, dorsiflexion, EHL, FHL are intact. Sensory exam to light touch throughout the extremity is intact, dorsal pedis pulses 2+. - Labs CBC & Chem 7: 03/28/19 07:22 Labs: Abnormal Lab Results - Last 24 Hours (Table) 03/28/19 03/28/19 03/28/19 Range/Units 07:24 16:46 20:28 POC Glucose (mg/dL) 262 H 157 H (75-99) mg/dL Hemoglobin A1c 7.2 H (4.0-6.0) % 03/29/19 03/29/19 Range/Units 07:07 11:43 POC Glucose (mg/dL) 145 H 169 H (75-99) mg/dL Hemoglobin A1c (4.0-6.0) % Assessment and Plan Plan: Assessment: Postoperative day #2 status post left total knee arthroplasty Plan: Pain control, we did add Toradol, continue oral [place] The milk of magnesia for constipation, as long discussion with patient regarding use of narcotics and constipation GI and DVT prophylaxis, continue current medication Continue work physical therapy Icing and elevating often Encourage incentive spirometer Medical recommendations Due to patient's pain control and difficulty with ambulating, we'll make patient inpatient status. Possible discharged to rehab
[2019-03-29] MEDS: MAGNESIUM HYDROXIDE 2,400 MG/10 ML CUP PO PRN (15:34)
[2019-03-29 16:03] LABS: Calcium 9.3 mg/dL (8.4-10.2); Potassium 4.1 mmol/L (3.5-5.1)
--- NOTE | 2019-03-29 16:49 | PN ---
PROGRESS NOTE DATE OF SERVICE: 03/29/2019 This 73-year-old gentleman who was admitted after left total knee arthroplasty for severe DJD is being closely monitored. He has complaints of pain. No chest pain. No palpitations. No fever. On exam, alert and oriented x3. Pulse 75, blood pressure 143/79, respiration 18, temperature 98.6, pulse ox 92% on room air. HEENT: Conjunctivae normal. NECK: No jugular venous distention. CARDIOVASCULAR SYSTEM: S1, S2 muffled. RESPIRATORY SYSTEM: Breath sounds diminished at the bases. No rhonchi. No crackles. ABDOMEN: Soft, non-tender. LEGS: Status post left knee arthroplasty. NERVOUS SYSTEM: No focal deficit. LABS: WBC 11.2, hemoglobin 12.7, sodium 135. Hemoglobin A1c is 7.2. ASSESSMENT: 1. Status post left total knee joint arthroplasty for severe degenerative joint disease. 2. Diabetes mellitus, type 2. 3. History of gastroesophageal reflux disease. 4. Continued pain. 5. Hypertension. 6. History of degenerative joint disease. 7. History of tonsillectomy. 8. Remote history of nicotine dependence. 9. Possible benign prostatic hypertrophy. 10.Obesity with body mass index 49.8. 11.FULL CODE. RECOMMENDATIONS AND DISCUSSION: I recommend to continue current medications, continue with the monitoring, symptomatic treatment. I recommend monitoring the blood sugars closely. Pain management. I will also recommend a BMP and Toradol p.r.n. Otherwise, I recommend DVT prophylaxis, incentive spirometry. Closely follow with Orthopedic Surgery. Further recommendations to follow. MMODL / IJN: [id number] /
[2019-03-29 17:17] LABS: Glucose,Whole Blood 139 mg/dL (75-99)
[2019-03-29] MEDS: TAMSULOSIN 0.4 MG CAP.ER.24H PO SCH (18:30)
[2019-03-29 20:47] LABS: Glucose,Whole Blood 210 mg/dL (75-99)
[2019-03-29] MEDS: ATORVASTATIN 10 MG TAB PO SCH (21:34)
[2019-03-29] MEDS: SENNOSIDES-DOCUSATE SODIUM 1 EACH TAB PO SCH (21:35)
[2019-03-30] MEDS: KETOROLAC 30 MG/ML 1 ML VIAL IVP PRN ×3 (00:38→12:46)
[2019-03-30] MEDS: HYDROcodone/APAP 7.5-325MG 1 EACH TAB PO PRN ×3 (00:39→12:44)
[2019-03-30] MEDS ORDERED: BISACODYL 5 MG TABLET.DR PO STA (06:38)
[2019-03-30 06:58] VITALS: BP 125/78; PULSE 74; RESP 18; TEMP 98.2
[2019-03-30 07:25] LABS: Glucose,Whole Blood 138 mg/dL (75-99)
[2019-03-30] MEDS: LACTATED RINGERS 1,000 ML IV SCH ×2 (08:19)
[2019-03-30] MEDS: INSULIN ASPART (NovoLOG) 100 UNIT/ML VIAL SQ SCH ×2 (08:20→12:41)
[2019-03-30] MEDS: LINAGLIPTIN 5 MG TABLET PO SCH (08:20)
[2019-03-30] MEDS: CHOLECALCIFEROL 1,000 UNIT TAB PO SCH (08:20)
[2019-03-30] MEDS: LISINOPRIL 10 MG TAB PO SCH (08:20)
[2019-03-30] MEDS: ATENOLOL 50 MG TAB PO SCH (08:20)
[2019-03-30] MEDS: PANTOPRAZOLE 40 MG TABLET PO SCH (08:20)
[2019-03-30] MEDS: metFORMIN 500 MG TAB PO SCH (08:20)
[2019-03-30] MEDS: GABAPENTIN 100 MG CAP PO SCH (08:20)
[2019-03-30] MEDS: ENOXAPARIN 30 MG/0.3 ML SYRINGE SQ SCH (08:20)
[2019-03-30 08:26] LABS: Basophils % (A) 1 %; Eosinophils # (A) 0.3 k/uL (0-0.7); Eosinophils % (A) 4 %; HCT 33.5 % (39.0-53.0); HGB 10.9 gm/dL (13.0-17.5); Lymphocytes # (A) 1.8 k/uL (1.0-4.8); Lymphocytes % (A) 20 %; MCH 28.4 pg (25.0-35.0); MCHC 32.6 g/dL (31.0-37.0); Mean Platelet Volume 8.1; Monocytes # (A) 0.5 k/uL (0-1.0); Monocytes % (A) 5 %; Neutrophils # (A) 6.1 k/uL (1.3-7.7); Neutrophils % (A) 68 %; Platelet Count 102 k/uL (150-450); RBC 3.85 m/uL (4.30-5.90)
[2019-03-30] MEDS ORDERED: MAGNESIUM HYDROXIDE 2,400 MG/10 ML CUP PO PRN (10:05)
--- NOTE | 2019-03-30 11:49 | P.PN ---
Subjective Patient was admitted for left knee arthroplasty in overnight events patient is clinically doing well is being discharged today. Discharge medications were reviewed. Constitutional: Denied any fatigue denied any fever. Cardio vascular: denied any chest pain, palpitations Gastrointestinal denied any nausea vomiting Pulmonary: Denied any shortness of breath cough Neurologic denied any new focal deficits All inpatient medications were reviewed and appropriate changes in these medications as dictated in the interval history and assessment and plan. Objective - Vital Signs Vital signs: Vital Signs Temp 98.2 F 03/30/19 06:57 Pulse 74 03/30/19 06:57 Resp 18 03/30/19 06:57 BP 125/78 03/30/19 06:57 Pulse Ox 95 03/30/19 06:57 Intake & Output 03/29/19 03/30/19 03/30/19 18:59 06:59 18:59 Intake Total 0 850 Balance 0 850 Intake: Intake, IV Titration 0 Amount Lactated Ringers 1,000 ml 0 @ 80 mls/hr IV .[id number] ERNIE Rx#:[id number] Oral 850 Other: Voiding Method Urinal Urinal Urinal # Voids 2 1 - Exam PHYSICAL EXAMINATION: GENERAL: The patient is alert and oriented x3, not in any acute distress. Well developed, well nourished. HEENT: Pupils are round and equally reacting to light. EOMI. No scleral icterus. No conjunctival pallor. Normocephalic, atraumatic. No pharyngeal erythema. No thyromegaly. CARDIOVASCULAR: S1 and S2 present. No murmurs, rubs, or gallops. PULMONARY: Chest is clear to auscultation, no wheezing or crackles. ABDOMEN: Soft, nontender, nondistended, normoactive bowel sounds. No palpable organomegaly. MUSCULOSKELETAL: Deferred to orthopedic surgery EXTREMITIES: No cyanosis, clubbing, or pedal edema. NEUROLOGICAL: Gross neurological examination did not reveal any focal deficits. SKIN: No rashes. - Labs CBC & Chem 7: 03/30/19 07:00 03/29/19 15:32 Labs: Abnormal Lab Results - Last 24 Hours (Table) 03/29/19 03/29/19 03/29/19 Range/Units 15:32 17:15 20:45 RBC (4.30-5.90) m/uL Hgb (13.0-17.5) gm/dL Hct (39.0-53.0) % Plt Count (150-450) k/uL Carbon Dioxide 21 L (22-30) mmol/L Glucose 153 H (74-99) mg/dL POC Glucose (mg/dL) 139 H 210 H (75-99) mg/dL 03/30/19 03/30/19 Range/Units 07:00 07:23 RBC 3.85 L (4.30-5.90) m/uL Hgb 10.9 L (13.0-17.5) gm/dL Hct 33.5 L (39.0-53.0) % Plt Count 102 L (150-450) k/uL Carbon Dioxide (22-30) mmol/L Glucose (74-99) mg/dL POC Glucose (mg/dL) 138 H (75-99) mg/dL Assessment and Plan Plan: Type 2 diabetes mellitus -Hypertension - gastroesophageal reflux disease -Status post left knee arthroplasty constipation and urinary retention resolved -Primary degenerative joint disease Patient is clinically doing well can be discharged from medical perspective discharge medications were reviewed and appropriate changes were made
[2019-03-30 12:24] LABS: Glucose,Whole Blood 161 mg/dL (75-99)
--- NOTE | 2019-03-30 13:02 | P.PN ---
Subjective Progress Note Date: 03/30/19 Principal diagnosis: Status post left total knee arthroplasty Patient evaluated today at bedside. Patient's pain is better controlled today. Denies any chest pain or shortness of breath. Objective - Vital Signs Vital signs: Vital Signs Temp 98.2 F 03/30/19 06:57 Pulse 74 03/30/19 06:57 Resp 18 03/30/19 06:57 BP 125/78 03/30/19 06:57 Pulse Ox 95 03/30/19 06:57 Intake & Output 03/29/19 03/30/19 03/30/19 18:59 06:59 18:59 Intake Total 0 850 Balance 0 850 Intake: Intake, IV Titration 0 Amount Lactated Ringers 1,000 ml 0 @ 80 mls/hr IV .[id number] ERNIE Rx#:[id number] Oral 850 Other: Voiding Method Urinal Urinal Urinal # Voids 2 1 - Exam Left lower extremity: Incision is clean, dry, and intact. The exofin fusion tape is in good condition. There is minimal soft tissue swelling and ecchymosis surrounding the medial and lateral aspects of the incision. Calf is soft, no tenderness with palpation. Plantar flexion, dorsiflexion, EHL, FHL are intact. Sensory exam to light touch throughout the extremity is intact, dorsal pedis pulses 2+. - Labs CBC & Chem 7: 03/30/19 07:00 03/29/19 15:32 Labs: Abnormal Lab Results - Last 24 Hours (Table) 03/29/19 03/29/19 03/29/19 Range/Units 15:32 17:15 20:45 RBC (4.30-5.90) m/uL Hgb (13.0-17.5) gm/dL Hct (39.0-53.0) % Plt Count (150-450) k/uL Carbon Dioxide 21 L (22-30) mmol/L Glucose 153 H (74-99) mg/dL POC Glucose (mg/dL) 139 H 210 H (75-99) mg/dL 03/30/19 03/30/19 03/30/19 Range/Units 07:00 07:23 12:23 RBC 3.85 L (4.30-5.90) m/uL Hgb 10.9 L (13.0-17.5) gm/dL Hct 33.5 L (39.0-53.0) % Plt Count 102 L (150-450) k/uL Carbon Dioxide (22-30) mmol/L Glucose (74-99) mg/dL POC Glucose (mg/dL) 138 H 161 H (75-99) mg/dL Assessment and Plan Plan: Assessment: Postoperative day #3 status post left total knee arthroplasty Plan: Pain control, plan for discharge on Toradol and [place] GI and DVT prophylaxis, continue current medication Continue work physical therapy Icing and elevating often Encourage incentive spirometer Medical recommendations Plan discharge home today Time with Patient: Less than 30
[2019-03-30] MEDS: MAGNESIUM HYDROXIDE 2,400 MG/10 ML CUP PO PRN (13:05)
== END 2019-03-30 17:05 | disposition home health service (06) | DRG 470 ==
LOC: 2ORMAIN 10:57 → 4SSUR 15:11
PROVIDERS: ADMIT Orthopaedic Surgery; ATTEND Orthopaedic Surgery
PROC: 0SRD0J9 Replacement of Left Knee Joint with Synthetic Substitute, Cemented, Open Approach (ICD-10-PCS; principal; 2019-03-27 12:40)
DX: M17.12 Unilateral primary osteoarthritis, left knee (principal); Z68.42 Body mass index [BMI] 45.0-49.9, adult; E66.9 Obesity, unspecified; E78.5 Hyperlipidemia, unspecified; I10 Essential (primary) hypertension; K21.9 Gastro-esophageal reflux disease without esophagitis; E11.42 Type 2 diabetes mellitus with diabetic polyneuropathy; N40.0 Benign prostatic hyperplasia without lower urinary tract symptoms; Z79.84 Long term (current) use of oral hypoglycemic drugs; Z79.899 Other long term (current) drug therapy; Z87.891 Personal history of nicotine dependence; Z80.9 Family history of malignant neoplasm, unspecified
CPT/HCPCS: 80048; 83036; 85025; 88300

== ENCOUNTER 2021-12-19 09:45 | Day surgery (SDC) | payer OTHER ==
[2021-12-19] MEDS ORDERED: ASPIRIN 325 MG TAB PO STA (09:48)
[2021-12-19] MEDS ORDERED: ALPRAZolam 0.25 MG TAB PO PRN (09:48)
[2021-12-19] MEDS ORDERED: ALPRAZolam 0.5 MG TAB PO PRN (09:48)
[2021-12-19] MEDS ORDERED: ATORVASTATIN 80 MG TAB PO STA (09:48)
[2021-12-19] MEDS ORDERED: NITROGLYCERIN SL TABS 0.4 MG TAB SUBLINGUAL PRN (09:48)
[2021-12-19] MEDS ORDERED: SODIUM CHLORIDE 0.9% 1,000 ML in EMPTY BAG 1 BAG IV SCH (10:00)
[2021-12-19 10:15] LABS: Glucose,Whole Blood 198 mg/dL (75-99)
[2021-12-19] MEDS ORDERED: LIDOCAINE 1% INJ 10MG/ML (20 ML MDV) ONE (10:29)
[2021-12-19] MEDS ORDERED: HEPARIN SODIUM 1,000 UN/ML (10ML VL) ONE (10:29)
[2021-12-19] MEDS ORDERED: VERAPAMIL 2.5 MG/ML 2 ML AMP ONE (10:29)
[2021-12-19] MEDS ORDERED: fentaNYL (PF) 50 MCG/ML 2 ML AMP ONE (10:30)
[2021-12-19 10:41] LABS: Basophils # (A) 0.1 k/uL (0-0.2); Basophils % (A) 1 %; Eosinophils # (A) 0.2 k/uL (0-0.7); Eosinophils % (A) 3 %; HCT 51.8 % (39.0-53.0); HGB 17.6 gm/dL (13.0-17.5); Lymphocytes # (A) 2.5 k/uL (1.0-4.8); Lymphocytes % (A) 26 %; MCH 29.8 pg (25.0-35.0); MCV 87.5 fL (80.0-100.0); Mean Platelet Volume 8.4; Monocytes # (A) 0.5 k/uL (0-1.0); Monocytes % (A) 6 %; Neutrophils # (A) 6.3 k/uL (1.3-7.7); Neutrophils % (A) 64 %; Platelet Count 151 k/uL (150-450); RBC 5.93 m/uL (4.30-5.90); RDW 12.9 % (11.5-15.5); WBC 9.8 k/uL (3.8-10.6)
[2021-12-19] MEDS: MIDAZOLAM 2 MG/2 ML VIAL IV ONE ×2 (10:41→10:45)
[2021-12-19] MEDS ORDERED: fentaNYL (PF) 50 MCG/ML 2 ML AMP IV ONE (10:41)
[2021-12-19] MEDS ORDERED: LIDOCAINE 1% INJ 10MG/ML (20 ML MDV) SQ ONE (10:42)
[2021-12-19] MEDS ORDERED: VERAPAMIL SYRINGE (5 MG/10 ML) INTRAARTER ONE (10:45)
[2021-12-19] MEDS ORDERED: IOPAMIDOL-370 125ML BTL INJ ONE (10:59)
[2021-12-19 11:03] VITALS: RESP 16; TEMP 98
[2021-12-19] MEDS ORDERED: RX INFO: IV CONTRAST WAS GIVEN 1 EACH MISC MISCELLANE PRN (11:05)
[2021-12-19] MEDS ORDERED: SODIUM CHLORIDE 0.9% 1,000 ML IV SCH (11:15)
[2021-12-19] MEDS ORDERED: glipiZIDE 10 MG TAB PO STA (12:55)
[2021-12-19] MEDS ORDERED: atenoloL 50 MG TAB PO STA (12:55)
[2021-12-19] MEDS ORDERED: GABAPENTIN 100 MG CAP PO STA (12:55)
[2021-12-19] MEDS ORDERED: hydroCHLOROthiazide 12.5 MG CAP PO SCH (13:00)
[2021-12-19 18:39] VITALS: BP 102/55; PULSE 64
[2021-12-20] MEDS ORDERED: HEPARIN SODIUM,PORCINE 2,500 UNIT in SODIUM CHLORIDE 0.9% 250 ML IRRIGATION PRN (07:00)
[2021-12-20] MEDS ORDERED: HEPARIN SODIUM,PORCINE 10,000 UNIT in SODIUM CHLORIDE 0.9% 1,000 ML IRRIGATION PRN (07:00)
--- NOTE | 2021-12-22 13:01 | CC ---
CARDIAC CATHETERIZATION REPORT INDICATION: Unstable angina. PROCEDURE NOTE: After obtaining informed consent, left heart catheterization and coronary angiogram were performed via the right radial artery using size 3.5 Gabe catheters. Left ventricular end-diastolic pressure was obtained with the right Gabe. Patient tolerated the procedure well without any obvious immediate complications. Right radial artery access was obtained using a micropuncture needle, and under fluoroscopic guidance catheters and wires were floated into the ascending aorta. Verapamil 5 mg and 4000 units of intravenous heparin were given to the patient as per protocol. He received moderate conscious sedation and total sedation time was 15 minutes. At the end of the procedure, a TR band was used to obtain adequate hemostasis. FINDINGS: HEMODYNAMICS: Left ventricular end-diastolic pressure is 14 mm. There is no significant gradient across the aortic valve. LEFT VENTRICULOGRAM: Left ventriculogram was not performed. ANGIOGRAPHIC DATA: Left main coronary artery appears calcified but is free of significant stenosis. It divides into left anterior descending coronary artery and circumflex coronary artery. LAD shows mild to moderate atherosclerotic plaque in its mid portion. Circumflex coronary artery and its branches are free of significant disease. Right coronary artery shows mild nonobstructive disease in its mid portion. CONCLUSIONS: Mild nonobstructive disease. Patient's chest pain is probably noncardiac in origin and pursue other cardiac workup. MMODL / IJN: [id number] /
== END 2021-12-19 15:41 | disposition home or self-care (01) ==
LOC: CATHCVL 09:45
PROVIDERS: ATTEND Internal Medicine Cardiovascular Disease
DX: I20.0 Unstable angina (principal); Z20.822 Contact with and (suspected) exposure to COVID-19
CPT/HCPCS: 93458; 85025; 87635; C1894; J2250; J2001; J3010; J1644; Q9967

== ENCOUNTER 2022-04-27 10:54 | Inpatient (IN) | payer OTHER, MEDICARE ==
[2022-04-27 11:30] LABS: Glucose,Whole Blood 303 mg/dL (75-99)
[2022-04-27 12:19] LABS: Albumin 4.2 g/dL (3.5-5.0); Calcium 9.2 mg/dL (8.4-10.2); Potassium 4.1 mmol/L (3.5-5.1); Total Bilirubin 0.6 mg/dL (0.2-1.3); Total Protein 7.8 g/dL (6.3-8.2)
[2022-04-27 12:28] LABS: INR 1.1 (<1.2); Prothrombin Time 11.5 sec (9.0-12.0)
[2022-04-27 12:35] LABS: Partial Thromboplastin Time 21.8 sec (22.0-30.0)
[2022-04-27 12:36] LABS: Basophils # (A) 0.1 k/uL (0-0.2); Basophils % (A) 1 %; Eosinophils # (A) 0.1 k/uL (0-0.7); Eosinophils % (A) 1 %; HCT 50.3 % (39.0-53.0); HGB 16.8 gm/dL (13.0-17.5); Lymphocytes # (A) 2.8 k/uL (1.0-4.8); Lymphocytes % (A) 23 %; MCH 29.2 pg (25.0-35.0); MCHC 33.3 g/dL (31.0-37.0); MCV 87.6 fL (80.0-100.0); Mean Platelet Volume 8.3; Monocytes # (A) 0.8 k/uL (0-1.0); Monocytes % (A) 6 %; Neutrophils % (A) 67 %; Platelet Count 146 k/uL (150-450); RBC 5.74 m/uL (4.30-5.90); RDW 13.7 % (11.5-15.5); WBC 11.9 k/uL (3.8-10.6)
[2022-04-27 12:52] LABS: Appearance,Urine Clear (Clear); Bilirubin,Urine Negative (Negative); Blood,Urine Negative (Negative); Color,Urine Light Yellow; Glucose,Urine (UA) 4+ (Negative); Ketones,Urine Negative (Negative); Leukocyte Esterase,Urine Negative (Negative); Nitrite,Urine Negative (Negative); PH, Urine 5.5 (5.0-8.0); Protein,Urine Negative (Negative); Urobilinogen,Urine <2.0 mg/dL (<2.0)
--- NOTE | 2022-04-27 12:59 | CT ---
EXAMINATION TYPE: CT brain wo con for TPA DATE OF EXAM: 04/27/2022 COMPARISON: None available HISTORY: Neuro deficit, acute, stroke suspected, slurred speech CT DLP: 1188.4 mGycm Automated exposure control for dose reduction was used. TECHNIQUE: CT scan of the brain is performed without IV contrast administration. FINDINGS: Right middle frontal gyrus cortical and subcortical hypodensity likely representing an acute infarct. Brain volume loss changes, likely age-related. Scattered arterial atherosclerotic calcifications. Qu estionable hyperdense right MCA versus artifact. No acute intracranial hemorrhage. No midline shift, herniation or ventriculomegaly. Unremarkable basa l cisterns, sella and CP angles. No gross space-occupying lesion or mass effect. Unremarkable orbits. Clear visualized paranasal sinuses and mastoid air cells. Unremarkable calvarial bones. IMPRESSION: Suspected acute right middle frontal gyrus cortical and subcortical acute infarct as described above without significant hemorrhagic transformation, please correlate clinically. Recommend further neurol ogy consultation. Questionable hyperdense right MCA versus artifact.
[2022-04-27] MEDS ORDERED: IPRATROPIUM-ALBUTEROL 3 ML NEB INHALATION STA (13:09)
--- NOTE | 2022-04-27 13:28 | XR ---
EXAMINATION TYPE: XR chest 2V DATE OF EXAM: 04/27/2022 COMPARISON: None HISTORY: 76-year-old male confusion, altered mental status, difficulty with speech and swallowing sin ce yesterday. TECHNIQUE: PA and lateral views FINDINGS: Heart normal size. Tortuous/ectatic thoracic aorta. Increased medium reticular opacities. No consolid ation or pleural effusion. IMPRESSION: Interstitial opacities bilaterally. Consider bronchitis or atypical pneumonias including the possibil ity of COVID pneumonia.
[2022-04-27] MEDS ORDERED: ASPIRIN 325 MG TAB PO STA (13:36)
[2022-04-27] MEDS ORDERED: ALBUTEROL NEBULIZED 2.5 MG/3 ML INHALATION PRN (13:38)
[2022-04-27] MEDS: SODIUM CHLORIDE 0.9% 1,000 ML IV SCH (13:48)
--- NOTE | 2022-04-27 13:49 | ED ---
General Adult HPI - General Chief complaint: Neuro Symptoms/Deficit Stated complaint: Lt side weakness/slurred speech Time Seen by Provider: 04/27/22 11:20 Source: family, RN notes reviewed, old records reviewed Mode of arrival: wheelchair Limitations: language barrier - History of Present Illness Initial comments: Patient is a 76-year-old male with past medical history remarkable for diabetes, hypertension, hyperlipidemia, migraines who presents emergency department for evaluation. Patient was brought in by over concern for possible stroke. Complaining of change in speech. Started yesterday morning. Last known well was 8 AM yesterday. Presents today at approximately 11 AM. There is been greater than 24 hours. States that he awoke from a nap at 10 AM and garbled speech. Patient's corroborates the story. Tried to have him come to the emergency prompt for evaluation but he refused. He does not improve this point in which is why they present today. Patient is not on blood thinners. He did fall 3 weeks ago but no loss of consciousness and no symptoms on. He currently denies any other acute complaints at this time. Presents for further evaluation of concern for possible stroke. - Related Data Home Medications Medication Instructions Recorded Confirmed Gabapentin [Neurontin] 100 mg PO BID 12/28/17 04/27/22 Omeprazole [PriLOSEC] 20 mg PO AC-BRKFST 12/28/17 04/27/22 atenoloL [Tenormin] 50 mg PO DAILY 12/28/17 04/27/22 Alogliptin Benzoate [Alogliptin] 25 mg PO DAILY 03/20/19 04/27/22 Hydrochlorothiazide 12.5 mg PO DAILY 12/19/21 04/27/22 [hydroCHLOROthiazide] Losartan [Cozaar] 50 mg PO DAILY 12/19/21 04/27/22 Albuterol Nebulized [Ventolin 2.5 mg INHALATION RT-Q6H PRN 04/27/22 04/27/22 Nebulized] Amoxic-Pot Clav 875-125Mg 1 tab PO Q12HR 04/27/22 04/27/22 [Augmentin 875-125] Benzonatate [Benzonatate Perle] 200 mg PO TID PRN 04/27/22 04/27/22 Empagliflozin [Jardiance] 25 mg PO DAILY 04/27/22 04/27/22 Lidocaine 5% Patch [Lidoderm] 1 patch TOPICAL DAILY PRN 04/27/22 04/27/22 Simvastatin [Zocor] 10 mg PO HS 04/27/22 04/27/22 glipiZIDE [Glucotrol] 20 mg PO BID 04/27/22 04/27/22 predniSONE 50 mg PO DAILY 04/27/22 04/27/22 Allergies Allergy/AdvReac Type Severity Reaction Status Date / Time No Known Allergies Allergy Verified 04/27/22 13:00 Review of Systems ROS Statement: Those systems with pertinent positive or pertinent negative responses have been documented in the HPI. Review of Systems: CONST: Denies fever EYES: Artificial right eye. No change in vision in the left eye. ENT: Denies nasal congestion C/V: Denies Chest pain RESP: Denies shortness of breath GI: Denies abdominal pain : Denies dysuria SKIN: Denies rash. MSK: Denies joint pain. NEURO: Endorses slurred speech. ROS Other: All systems not noted in ROS Statement are negative. Past Medical History Past Medical History: Diabetes Mellitus, GERD/Reflux, Hyperlipidemia, Hypertension, Osteoarthritis (OA) Additional Past Medical History / Comment(s): hx migraines yrs ago, gout, History of Any Multi-Drug Resistant Organisms: None Reported Past Surgical History: Tonsillectomy Additional Past Surgical History / Comment(s): lens implant rt eye Past Anesthesia/Blood Transfusion Reactions: No Reported Reaction Past Psychological History: No Psychological Hx Reported Past Alcohol Use History: None Reported Past Drug Use History: None Reported - Past Family History Mother Family Medical History: Cancer Father Family Medical History: Diabetes Mellitus General Exam - General Exam Comments Initial Comments: General: Appears in no acute distress. HEAD: Normal with no signs of head trauma. EYES: Official right eye. Left eye is reactive to light. 2 millimeters in diameter. EOMI. ENT: Hearing grossly intact, normal oropharynx. RESPIRATORY: Mild bilateral end expiratory wheezing. C/V: Regular rate and rhythm. S1 and S2 auscultated, no edema, peripheral pulses 2+ and intact throughout ABD: Abd is soft, nontender, nondistended EXT: Normal range of motion, no obvious deformity SKIN: No rashes or lesions observed on exposed skin. NEURO: Alert and oriented 3-4. NIH is approximately 2. 1 point for aphasia and 1 point for dysarthria. GCS is 15. Cerebellar function is within normal limits as evident by normal finger nose testing and [id number] testing. Last known well was 8 AM yesterday. Limitations: language barrier Course Vital Signs 04/27/22 04/27/22 04/27/22 10:59 11:21 13:06 Temperature 98.2 F 97.6 F Pulse Rate 69 70 61 Respiratory 18 14 14 Rate Blood Pressure 130/74 129/87 110/73 O2 Sat by Pulse 95 96 94 L Oximetry 04/27/22 04/27/22 14:05 14:15 Temperature Pulse Rate 62 67 Respiratory 18 18 Rate Blood Pressure O2 Sat by Pulse Oximetry Medical Decision Making - Medical Decision Making Some the patient's presentation and physical exam, I'm concerned for an acute stroke and the patient. However last known well was at 8am yesterday which is greater then 24 hours ago. NIH is only 2. He is not a TPA candidate. He is also unlikely a thrombectomy candidate based on the low NIH. Stroke workup will be obtained but pager will not be activated. He was in agreement this plan. He will be administered breathing treatments and as he is currently receiving antibiotics as well as multiple breathing treatments for asthma bronchitis. Vital signs are within normal limits. Laboratory studies were remarkable for a mild leukocytosis of 11.9. Patient has an AK I with a BUN of 47 and creatinine of 1.97. GFR is 33. Patient has an elevated blood sugar 325. Troponin is negative. Urinalysis positive for 4+ glucose. CT imaging of the brain was obtained and revealed an acute or subacute right middle frontal gyrus and subcortical acute infarct as described above without any hemorrhagic transformation. CT angiogram was held at this time due to the patient's poor renal function. Chest x-ray reveals bilateral opacities and patient is currently being treated for bronchitis. Covid swab will be obtained. EKG showed no signs of acute ischemia. I spoke with Dr. jenkins of neurology, who was in agreement with the plan to hold the CT angiogram. He agreed that due to the low NIH as well as the time since onset of symptoms was last normal being greater than 24-hour ago, thrombectomy is unlikely and TPA is not an option. Particularly with the risk of causing further damage to his poor kidneys with current GFR of 33. I did discuss this with the patient as well as his and they agreed that CT angiogram will be held at this time. Patient will receive an aspirin. Neurology will evaluate the patient on inpatient basis. IV fluids will be continued as well as breathing treatments and steroids and his antibiotics. He was in agreement this plan. I spoke with the admitting team under [facility] [place] abdomen physician group accepted the patient. He was admitted in stable condition. Neurology is consulted. - Lab Data Result diagrams: 04/27/22 11:59 04/27/22 11:59 Lab Results 04/27/22 04/27/22 04/27/22 Range/Units 11:19 11:59 11:59 WBC 11.9 H (3.8-10.6) k/uL RBC 5.74 (4.30-5.90) m/uL Hgb 16.8 (13.0-17.5) gm/dL Hct 50.3 (39.0-53.0) % MCV 87.6 (80.0-100.0) fL MCH 29.2 (25.0-35.0) pg MCHC 33.3 (31.0-37.0) g/dL RDW 13.7 (11.5-15.5) % Plt Count 146 L (150-450) k/uL MPV 8.3 Neutrophils % 67 % Lymphocytes % 23 % Monocytes % 6 % Eosinophils % 1 % Basophils % 1 % Neutrophils # 8.0 H (1.3-7.7) k/uL Lymphocytes # 2.8 (1.0-4.8) k/uL Monocytes # 0.8 (0-1.0) k/uL Eosinophils # 0.1 (0-0.7) k/uL Basophils # 0.1 (0-0.2) k/uL PT 11.5 (9.0-12.0) sec INR 1.1 (<1.2) APTT 21.8 L (22.0-30.0) sec Sodium (137-145) mmol/L Potassium (3.5-5.1) mmol/L Chloride (98-107) mmol/L Carbon Dioxide (22-30) mmol/L Anion Gap mmol/L BUN (9-20) mg/dL Creatinine (0.66-1.25) mg/dL Est GFR (CKD-EPI)AfAm (>60 ml/min/1.73 sqM) Est GFR (CKD-EPI)NonAf (>60 ml/min/1.73 sqM) Glucose (74-99) mg/dL POC Glucose (mg/dL) 303 H (75-99) mg/dL POC Glu Mineral Surveyor ID [place] Calcium (8.4-10.2) mg/dL Total Bilirubin (0.2-1.3) mg/dL AST (17-59) U/L ALT (4-49) U/L Alkaline Phosphatase (38-126) U/L Troponin I (0.000-0.034) ng/mL Total Protein (6.3-8.2) g/dL Albumin (3.5-5.0) g/dL Urine Color Urine Appearance (Clear) Urine pH (5.0-8.0) Ur Specific Onset (1.001-1.035) Urine Protein (Negative) Urine Glucose (UA) (Negative) Urine Ketones (Negative) Urine Blood (Negative) Urine Nitrite (Negative) Urine Bilirubin (Negative) Urine Urobilinogen (<2.0) mg/dL Ur Leukocyte Esterase (Negative) 04/27/22 04/27/22 04/27/22 Range/Units 11:59 11:59 12:00 WBC (3.8-10.6) k/uL RBC (4.30-5.90) m/uL Hgb (13.0-17.5) gm/dL Hct (39.0-53.0) % MCV (80.0-100.0) fL MCH (25.0-35.0) pg MCHC (31.0-37.0) g/dL RDW (11.5-15.5) % Plt Count (150-450) k/uL MPV Neutrophils % % Lymphocytes % % Monocytes % % Eosinophils % % Basophils % % Neutrophils # (1.3-7.7) k/uL Lymphocytes # (1.0-4.8) k/uL Monocytes # (0-1.0) k/uL Eosinophils # (0-0.7) k/uL Basophils # (0-0.2) k/uL PT (9.0-12.0) sec INR (<1.2) APTT (22.0-30.0) sec Sodium 134 L (137-145) mmol/L Potassium 4.1 (3.5-5.1) mmol/L Chloride 101 (98-107) mmol/L Carbon Dioxide 18 L (22-30) mmol/L Anion Gap 15 mmol/L BUN 47 H (9-20) mg/dL Creatinine 1.97 H (0.66-1.25) mg/dL Est GFR (CKD-EPI)AfAm 38 (>60 ml/min/1.73 sqM) Est GFR (CKD-EPI)NonAf 33 (>60 ml/min/1.73 sqM) Glucose 325 H (74-99) mg/dL POC Glucose (mg/dL) (75-99) mg/dL POC Glu Mineral Surveyor ID Calcium 9.2 (8.4-10.2) mg/dL Total Bilirubin 0.6 (0.2-1.3) mg/dL AST 16 L (17-59) U/L ALT 14 (4-49) U/L Alkaline Phosphatase 73 (38-126) U/L Troponin I <0.012 (0.000-0.034) ng/mL Total Protein 7.8 (6.3-8.2) g/dL Albumin 4.2 (3.5-5.0) g/dL Urine Color Light Yellow Urine Appearance Clear (Clear) Urine pH 5.5 (5.0-8.0) Ur Specific Onset 1.020 (1.001-1.035) Urine Protein Negative (Negative) Urine Glucose (UA) 4+ H (Negative) Urine Ketones Negative (Negative) Urine Blood Negative (Negative) Urine Nitrite Negative (Negative) Urine Bilirubin Negative (Negative) Urine Urobilinogen <2.0 (<2.0) mg/dL Ur Leukocyte Esterase Negative (Negative) - EKG Data -: EKG Interpreted by Me EKG Comments: 12-lead Electrocardiogram Interpretation Note EKG was reviewed and interpreted by myself. 12-lead ECG performed at 1119 is interpreted by me as revealing normal sinus rhythm at a rate of 74 beats per minute. [place] is normal. UT interval is 163 ms, QRS duration is 90 ms, QTc is 400 ms.. There were no ST or T wave abnormalities to suggest myocardial ischemia or injury. R wave progression across the precordium was satisfactory. By my interpretation this EKG is non-diagnostic for acute ischemia. Critical Care Time Critical Care Time: Yes Total Critical Care Time: 35 Critical Care Time: Upon my evaluation, this patient had a high probability of imminent or life- threatening deterioration due to CO[place], acute CVA, which required my direct attention, intervention, and personal management. I have personally provided 35 minutes of critical care time exclusive of time spent on separately billable procedures. Time includes review of laboratory data, radiology results, discussion with consultants, and monitoring for potential decompensation. Interventions were performed as documented in my note. Disposition Clinical Impression: Cerebrovascular accident (CVA), CO[place] (acute kidney injury), Bronchitis Disposition: ADMITTED IP TO THIS HOSP Condition: Stable Time of Disposition: 13:15
--- NOTE | 2022-04-27 17:27 | P.CNNES ---
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 Some of the history was obtained from medical record. Patient was accompanied by his on presentation per ED team. Patient last normal was 8 AM yesterday and today approximately around 11 AM the patient has been having garbled speech. Patient refused come to the emergency department for further evaluation yesterday. Patient stated he is having difficulty getting his words out. He had a fall about 3 weeks ago and felt his legs are like spegetty and refused to seek medical attention. He denies of any lower back pain or neck pain. He states he is taking ASA PRN and denies anticoagulation use. Patient is on simvastatin 10 mg daily at bedtime. He has remote history of tobacco use. Denies any alcohol use or illicit drug use. Patient stated he sees on light/dark complection but otherwise can barely see anything out of right eye. Some other workup in the hospital consisted of: Initial serum glucose is 325, creatinine is 1.97 and BUN is 47. GFR is 33. CT of the head is reported as suspected acute right middle frontal gyrus cortical and subcortical acute infarct without significant hemorrhagic transformation. Possible hyperdense right MCA versus artifact. I personally reviewed the CT of the head and I agree regarding the the infarct. Regarding the possible hyperdense right MCA I russell more artifact. The ED team patient NIH was a 2. The ED physician spoke with me via phone and notify me regarding the case. And since the patient is outside the window no IV TPA. And since the patient has poor kidney function the risk outweighed the benefit and he is not a candidate for thrombectomy since its greater than 24 hours on presentation and low NIH stroke. Review of Systems Review of system: The 12 point system was reviewed and apparent positive and negative per HPI. Past Medical History Past Medical History: Diabetes Mellitus, GERD/Reflux, Hyperlipidemia, Hypertension, Osteoarthritis (OA) Additional Past Medical History / Comment(s): hx migraines yrs ago, gout, History of Any Multi-Drug Resistant Organisms: None Reported Past Surgical History: Tonsillectomy Additional Past Surgical History / Comment(s): lens implant rt eye Past Anesthesia/Blood Transfusion Reactions: No Reported Reaction Past Psychological History: No Psychological Hx Reported Past Alcohol Use History: None Reported Past Drug Use History: None Reported - Past Family History Mother Family Medical History: Cancer Father Family Medical History: Diabetes Mellitus Medications and Allergies Home Medications Medication Instructions Recorded Confirmed Type Gabapentin [Neurontin] 100 mg PO BID 12/28/17 04/27/22 History Omeprazole [PriLOSEC] 20 mg PO AC-BRKFST 12/28/17 04/27/22 History atenoloL [Tenormin] 50 mg PO DAILY 12/28/17 04/27/22 History Alogliptin Benzoate [Alogliptin] 25 mg PO DAILY 03/20/19 04/27/22 History Hydrochlorothiazide 12.5 mg PO DAILY 12/19/21 04/27/22 History [hydroCHLOROthiazide] Losartan [Cozaar] 50 mg PO DAILY 12/19/21 04/27/22 History Albuterol Nebulized [Ventolin 2.5 mg INHALATION RT-Q6H PRN 04/27/22 04/27/22 History Nebulized] Amoxic-Pot Clav 875-125Mg 1 tab PO Q12HR 04/27/22 04/27/22 History [Augmentin 875-125] Benzonatate [Benzonatate Perle] 200 mg PO TID PRN 04/27/22 04/27/22 History Empagliflozin [Jardiance] 25 mg PO DAILY 04/27/22 04/27/22 History Lidocaine 5% Patch [Lidoderm] 1 patch TOPICAL DAILY PRN 04/27/22 04/27/22 History Simvastatin [Zocor] 10 mg PO HS 04/27/22 04/27/22 History glipiZIDE [Glucotrol] 20 mg PO BID 04/27/22 04/27/22 History predniSONE 50 mg PO DAILY 04/27/22 04/27/22 History Allergies Allergy/AdvReac Type Severity Reaction Status Date / Time No Known Allergies Allergy Verified 04/27/22 13:00 Physical Examination - Vital Signs Vital Signs: Vital Signs Temp Pulse Resp BP Pulse Ox 04/27/22 16:38 65 14 111/87 98 04/27/22 14:15 67 18 04/27/22 14:05 62 18 04/27/22 13:06 61 14 110/73 94 L 04/27/22 11:21 97.6 F 70 14 129/87 96 04/27/22 10:59 98.2 F 69 18 130/74 95 Intake and Output 04/27/22 04/27/22 04/27/22 06:59 14:59 22:59 Other: Weight 105.687 kg GENERAL: The patient is lying in bed and is not in acute distress. CHEST: The heart rate is regular rate rhythm. No murmurs to auscultation. No carotid bruit bilaterally. LUNG: Clear to auscultation bilaterally no wheezing noted throughout. Not labored breathing. ABDOMEN/GI: Bowel sounds present in all 4 quadrants. No tenderness to palpation throughout. NEUROLOGICAL: Higher mental function: The patient is awake, alert, oriented to self, place and time. Patient is following commands. Has moderate amount of expressive aphasia. No neglect. Cranial nerves: The left pupil is round, reactive to light. Right pupil is gaze grayish discoloration. Visual russell is full to confrontation on left. Blind over the right eye. Extraocular movement is intact no nystagmus is noted. Facial sensation is normal to touch throughout. The facial strength is normal throughout. Hearing is moderately decreased bilaterally to hand rub. Tongue is midline and moved [id number] without any difficulty. No dysarthria is noted. Shoulder shrug is normal bilaterally. Motor: Gait is deferred. The strength is left upper extremity is 4+ but no drift. Lowers are 4+ (stated old). Right upper is 5/5. Normal tone and bulk. Cerebellum: Normal finger to nose bilaterally. Sensation: Sensation is normal to touch throughout. Reflexes (right/left): 1+ throughout. Plantars are downgoing bilaterally. Results - Laboratory Findings CBC and BMP: 04/27/22 11:59 04/27/22 11:59 Abnormal Lab Findings: Abnormal Labs 04/27/22 04/27/22 04/27/22 11:19 11:59 11:59 WBC 11.9 H Plt Count 146 L Neutrophils # 8.0 H APTT 21.8 L Sodium Carbon Dioxide BUN Creatinine Glucose POC Glucose (mg/dL) 303 H AST Urine Glucose (UA) 04/27/22 04/27/22 11:59 12:00 WBC Plt Count Neutrophils # APTT Sodium 134 L Carbon Dioxide 18 L BUN 47 H Creatinine 1.97 H Glucose 325 H POC Glucose (mg/dL) AST 16 L Urine Glucose (UA) 4+ H Assessment and Plan Assessment: Acute CVA (right frontal on CT/MCA distribution. Presented with expressive aphasia and on examination felt has left upper extremity weakness). No IV tpa since outside window Fall about 3 weeks ago: Unsure cause. Diabetes mellitus and on presentation his sugar level is in 300's. 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 The patient was started on aspirin 81 mg by primary team in addition I started the patient on Plavix. The patient was not on any antiplatelets at home (was taking ASA PRN). I increased the Lipitor from 10 mg that was started by the ED team to 40 mg daily at bedtime. MRI the brain, 2-D echo and carotid duplex are ordered are pending Hemoglobin A1c, lipid panel TSH is ordered by the primary team pending PT OT and DISBURSING OFFICER are consulted Ordered MRI Lumbar spine since had recent fall and noticed his legs felt weak. Continue neuro checks Cardiac monitoring We'll defer the rest of the medical management to primary team For DVT prophylaxis the patient is on subcu heparin 5000 units every 8 hours The plan was discussed with the patient Thank you for the consultation. Sachin Moore M.D. Neuro-hospitalist Time with Patient: Greater than 30
[2022-04-27 17:29] LABS: Magnesium 2.4 mg/dL (1.6-2.3)
[2022-04-27] MEDS: CLOPIDOGREL 75 MG TAB PO SCH (17:52)
--- NOTE | 2022-04-27 19:41 | US ---
EXAMINATION TYPE: US carotid duplex BILAT DATE OF EXAM: 04/27/2022 COMPARISON: NONE CLINICAL HISTORY: Stenosis. CVA, stenosis EXAM MEASUREMENTS: RIGHT: Peak Systolic Velocity (PSV) cm/sec ----- Right CCA: 46.1 ----- Right ICA: 67.3 ----- Right ECA: 72.6 ICA/CCA ratio: 1.5 RIGHT: End Diastole cm/sec ----- Right CCA: 7.6 ----- Right ICA: 14.4 ----- Right ECA: 7.8 LEFT: Peak Systolic Velocity (PSV) cm/sec ----- Left CCA: 52.3 ----- Left ICA: 78.0 ----- Left ECA: 83.2 ICA/CCA ratio: 1.5 LEFT: End Diastole cm/sec ----- Left CCA: 13.0 ----- Left ICA: 25.2 ----- Left ECA: 6.5 VERTEBRALS (direction of flow): Right Vertebral: Antegrade Left Vertebral: Antegrade Rhythm: Normal No significant stenosis seen. Moderate plaque formation seen in the bilateral carotid bulbs. IMPRESSION: There is antegrade flow in the vertebral arteries. The images and measurements suggest less than 25% stenosis in both internal carotid arteries. Criteria for Assigning % of Stenosis / Diameter reduction (Estimation based on the indirect measurements of the internal carotid artery velocities (ICA PSV). 1. Normal (no stenosis)=ICA PSV < 125 cm/s: ratio < 2.0: ICA EDV<40 cm/s. 2. Less than 50% stenosis=ICA PSV < 125 cm/s: ratio < 2.0: ICA EDV<40 cm/s. 3. 50 to 69% stenosis=ICA PSV of 125 to 230 cm/s: ration 2.0 ? 4.0: ICA EDV 40-100 cm/s. 4. Greater than 70% stenosis to near occlusion= ICA PSV > 230 cm/s: ratio > 4.0: ICA EDV > 100 cm/s. 5. Near occlusion= ICA PSV velocities may be low or undetectable: variable ratio and ICA EDV. 6. Total occlusion=unable to detect flow.
--- NOTE | 2022-04-27 20:35 | P.HPIM ---
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 Patient has significant difficulty speaking and therefore he is unable to give detailed history, most of the history was obtained from electronic medical record, apparently he was accompanied by his earlier and she provided much of the history. Per medical record Patient last normal was 8 AM yesterday and today approximately around 11 AM the patient has been having garbled speech. Patient refused come to the emergency department for further evaluation yesterday. Patient stated he is having difficulty getting his words out. He states he is taking ASA PRN and denies anticoagulation use. Patient is on simvastatin 10 mg daily at bedtime. He has remote history of tobacco use. Denies any alcohol use or illicit drug use. Patient remains hemodynamically stable, initial lab workup. No major abnormality slightly elevated creatinine. Review of Systems Patient is denying nausea vomiting diarrhea constipation fever, he is denying any shortness of breath headache, complete review of system could not be done due to clinical condition Past Medical History Past Medical History: Diabetes Mellitus, GERD/Reflux, Hyperlipidemia, Hypertension, Osteoarthritis (OA) Additional Past Medical History / Comment(s): hx migraines yrs ago, gout, History of Any Multi-Drug Resistant Organisms: None Reported Past Surgical History: Tonsillectomy Additional Past Surgical History / Comment(s): lens implant rt eye Past Anesthesia/Blood Transfusion Reactions: No Reported Reaction Past Psychological History: No Psychological Hx Reported Past Alcohol Use History: None Reported Past Drug Use History: None Reported - Past Family History Mother Family Medical History: Cancer Father Family Medical History: Diabetes Mellitus Medications and Allergies Home Medications Medication Instructions Recorded Confirmed Type Gabapentin [Neurontin] 100 mg PO BID 12/28/17 04/27/22 History Omeprazole [PriLOSEC] 20 mg PO AC-BRKFST 12/28/17 04/27/22 History atenoloL [Tenormin] 50 mg PO DAILY 12/28/17 04/27/22 History Alogliptin Benzoate [Alogliptin] 25 mg PO DAILY 03/20/19 04/27/22 History Hydrochlorothiazide 12.5 mg PO DAILY 12/19/21 04/27/22 History [hydroCHLOROthiazide] Losartan [Cozaar] 50 mg PO DAILY 12/19/21 04/27/22 History Albuterol Nebulized [Ventolin 2.5 mg INHALATION RT-Q6H PRN 04/27/22 04/27/22 History Nebulized] Amoxic-Pot Clav 875-125Mg 1 tab PO Q12HR 04/27/22 04/27/22 History [Augmentin 875-125] Benzonatate [Benzonatate Perle] 200 mg PO TID PRN 04/27/22 04/27/22 History Empagliflozin [Jardiance] 25 mg PO DAILY 04/27/22 04/27/22 History Lidocaine 5% Patch [Lidoderm] 1 patch TOPICAL DAILY PRN 04/27/22 04/27/22 Histo ry Simvastatin [Zocor] 10 mg PO HS 04/27/22 04/27/22 History glipiZIDE [Glucotrol] 20 mg PO BID 04/27/22 04/27/22 History predniSONE 50 mg PO DAILY 04/27/22 04/27/22 History Allergies Allergy/AdvReac Type Severity Reaction Status Date / Time No Known Allergies Allergy Verified 04/27/22 13:00 Physical Exam Vitals: Vital Signs Temp Pulse Resp BP Pulse Ox 04/27/22 14:15 67 18 04/27/22 14:05 62 18 04/27/22 13:06 61 14 110/73 94 L 04/27/22 11:21 97.6 F 70 14 129/87 96 04/27/22 10:59 98.2 F 69 18 130/74 95 Intake and Output 04/27/22 04/27/22 04/27/22 06:59 14:59 22:59 Other: Weight 105.687 kg General: non toxic, no acute distress, alert oriented to time place and person, patient has expressive aphasia Head: atraumatic, normocephalic, symmetric Eyes: no lid lesion], anicteric sclera Mouth: no lip lesion, mucus membranes moist Cardiovascular: S1S2 reg rate and rhythm, no murmur, no gallop Lungs: Bilateral equal air entry, no wheezing no rhonchi no crackles. Abdominal: soft, nontender to palpation, no guarding, no appreciable organomegaly Ext: no gross muscle atrophy, no edema extremities warm to suppose a positive Neuro: Alert oriented to time place and person, expressive aphasia Psych: Mood and affect appropriate, patient not so certain Skin exam: No rashes no jaundice. Results CBC & Chem 7: 04/27/22 11:59 04/27/22 11:59 Labs: Abnormal Lab Results - Last 24 Hours (Table) 04/27/22 04/27/22 04/27/22 Range/Units 11:19 11:59 11:59 WBC 11.9 H (3.8-10.6) k/uL Plt Count 146 L (150-450) k/uL Neutrophils # 8.0 H (1.3-7.7) k/uL APTT 21.8 L (22.0-30.0) sec Sodium (137-145) mmol/L Carbon Dioxide (22-30) mmol/L BUN (9-20) mg/dL Creatinine (0.66-1.25) mg/dL Glucose (74-99) mg/dL POC Glucose (mg/dL) 303 H (75-99) mg/dL AST (17-59) U/L Urine Glucose (UA) (Negative) 04/27/22 04/27/22 Range/Units 11:59 12:00 WBC (3.8-10.6) k/uL Plt Count (150-450) k/uL Neutrophils # (1.3-7.7) k/uL APTT (22.0-30.0) sec Sodium 134 L (137-145) mmol/L Carbon Dioxide 18 L (22-30) mmol/L BUN 47 H (9-20) mg/dL Creatinine 1.97 H (0.66-1.25) mg/dL Glucose 325 H (74-99) mg/dL POC Glucose (mg/dL) (75-99) mg/dL AST 16 L (17-59) U/L Urine Glucose (UA) 4+ H (Negative) Assessment and Plan Assessment: 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 Patient has expressive aphasia, patient presented out of window for TPA Patient was given full dose of aspirin Currently on baby aspirin and Plavix We'll check fasting lipid panel TSH hemoglobin A1c MRI, echocardiogram, carotid ultrasound ordered Continue neuro checks cardiac telemetry We'll consult neurology Recent fall Unclear etiology, cannot exclude syncope Checking MRI echocardiogram carotid ultrasound as mentioned above Hypertension Hold antihypertensive medication Allow permissive hypertension Resume antihypertensive medications as able Hyperlipidemia Check fasting lipid panel Continue statin Diabetes mellitus Check hemoglobin A1c Hold oral hypoglycemic Continues on sliding scale Right eye blindness Questionable history for cataract Unclear reason for postsurgical blindness Patient reported he didn't seek medical care for further evaluation DVT prophylaxis: Subcutaneous heparin CODE STATUS: Full code Discharge plan: Likely will need rehab, PTOT consulted, timeline pending hospital course to be determined
[2022-04-27] MEDS ORDERED: ATORVASTATIN 10 MG TAB PO SCH (21:00)
[2022-04-27] MEDS ORDERED: glipiZIDE 10 MG TAB PO SCH (21:00)
[2022-04-27] MEDS: AMOXIC-POT CLAV 875-125MG 1 EACH TAB PO SCH (21:48)
[2022-04-27] MEDS: GABAPENTIN 100 MG CAP PO SCH (21:49)
[2022-04-27] MEDS: ATORVASTATIN 40 MG TAB PO SCH (21:50)
[2022-04-28] MEDS: SODIUM CHLORIDE 0.9% 1,000 ML IV SCH ×3 (00:04→21:35)
[2022-04-28] MEDS: HEPARIN SODIUM,PORCINE/PF 5,000 UNIT/0.5 ML SYRINGE SQ SCH ×3 (00:04→17:18)
[2022-04-28 06:10] LABS: Glucose,Whole Blood 228 mg/dL (75-99)
[2022-04-28] MEDS: PANTOPRAZOLE 40 MG TABLET PO SCH (06:56)
[2022-04-28] MEDS: INSULIN ASPART (NovoLOG) 100 UNIT/ML VIAL SQ SCH ×4 (06:56→21:29)
[2022-04-28] MEDS: GABAPENTIN 100 MG CAP PO SCH ×2 (08:40→21:28)
[2022-04-28] MEDS: ASPIRIN 81 MG PO SCH (08:40)
[2022-04-28] MEDS: AMOXIC-POT CLAV 875-125MG 1 EACH TAB PO SCH ×2 (08:40→21:28)
[2022-04-28] MEDS: CLOPIDOGREL 75 MG TAB PO SCH (08:41)
[2022-04-28] MEDS: atenoloL 50 MG TAB PO SCH (08:41)
[2022-04-28] MEDS: NON FORMULARY DRUG (Empagliflozin [Jardiance] 25 MG Tablet) PO SCH (08:42)
[2022-04-28 08:56] LABS: Basophils # (A) 0.1 k/uL (0-0.2); Basophils % (A) 1 %; Eosinophils # (A) 0.3 k/uL (0-0.7); Eosinophils % (A) 3 %; HCT 48.3 % (39.0-53.0); HGB 16.1 gm/dL (13.0-17.5); Lymphocytes # (A) 2.3 k/uL (1.0-4.8); Lymphocytes % (A) 22 %; MCH 29.1 pg (25.0-35.0); MCHC 33.3 g/dL (31.0-37.0); MCV 87.4 fL (80.0-100.0); Mean Platelet Volume 7.9; Monocytes # (A) 0.6 k/uL (0-1.0); Monocytes % (A) 6 %; Neutrophils # (A) 6.9 k/uL (1.3-7.7); Neutrophils % (A) 67 %; Platelet Count 138 k/uL (150-450); RBC 5.53 m/uL (4.30-5.90); RDW 13.8 % (11.5-15.5); WBC 10.4 k/uL (3.8-10.6)
[2022-04-28] MEDS ORDERED: predniSONE 50 MG TAB PO SCH (09:00)
[2022-04-28] MEDS ORDERED: LOSARTAN 50 MG TAB PO SCH (09:00)
[2022-04-28] MEDS ORDERED: hydroCHLOROthiazide 12.5 MG CAP PO SCH (09:00)
[2022-04-28] MEDS ORDERED: LINAGLIPTIN 5 MG TABLET PO SCH (09:00)
[2022-04-28 09:15] LABS: African American GFR (CKD) 35 (>60 ml/min/1.73 sqM); Anion Gap 11 mmol/L; Blood Urea Nitrogen 47 mg/dL (9-20); Calcium 9.3 mg/dL (8.4-10.2); Carbon Dioxide 20 mmol/L (22-30); Chloride 104 mmol/L (98-107); Glucose 215 mg/dL (74-99); Non-African American GFR(CKD) 30 (>60 ml/min/1.73 sqM); Potassium 4.5 mmol/L (3.5-5.1); Sodium 135 mmol/L (137-145)
--- NOTE | 2022-04-28 11:34 | CA ---
Transthoracic Echo Report Name: Niko Owen Age: 76 Gender: M : 1945 Exam Date: 04/28/2022 08:06 Exam Location: [facility] Ht (in): 72 Wt (lb): 233 Ordering Physician: Anson Townsend MD Attending/Referring Phys: Straddle Buggy Operator Morenita Kurtz RDCS Procedure CPT: Indications: Thrombus Cardiac Hx: Hx of stroke Technical Quality: Technically difficult study Contrast 1: Lumason Total Dose (mL): 1 Contrast 2: Total Dose (mL): MEASUREMENTS (Male / Female) Normal Values M-MODE Aortic Root Diameter MM 3.7 cm LA Systolic Diameter MM 2.6 cm LA Ao Ratio MM 0.7 MV E Point Septal Separation 1.8 cm AV Cusp Separation MM 2.0 cm DOPPLER AV Peak Velocity 100.8 cm/s AV Peak Gradient 4.1 mmHg MV Area PHT 8.0 cm??? MR Peak Velocity 88.7 cm/s MR Peak Gradient 3.1 mmHg Mitral E Point Velocity 68.6 cm/s Mitral A Point Velocity 41.4 cm/s Mitral E to A Ratio 1.7 MV Deceleration Time 94.7 ms MV E' Velocity 8.7 cm/s Mitral E to MV E' Ratio 7.9 TR Peak Velocity 62.8 cm/s TR Peak Gradient 1.6 mmHg Right Ventricular Systolic Press 6.6 mmHg FINDINGS Left Ventricle Normal Left ventricular size, wall thickness, systolic function with no obvious regional wall motion abnormalities. Normal Left ventricular diastolic filling pattern. Left ventricular ejection fraction is estimated at 55-60 %. Right Ventricle The right ventricle is normal in size and function. Right Atrium The right atrium is normal in size. Left Atrium The left atrium is normal in size. Mitral Valve Structurally normal mitral valve without significant stenosis or prolapse. There is trace mitral regurgitation. Aortic Valve Structurally normal aortic valve without significant sclerosis or stenosis. There is no aortic regurgitation. Tricuspid Valve Structurally normal tricuspid valve without significant stenosis. Pulmonary artery systolic pressure is normal. Trace tricuspid regurgitation. Pulmonic Valve Structurally normal pulmonic valve without significant stenosis. There is no pulmonic regurgitation. Pericardium Normal pericardium without effusion. Aorta Normal aortic root dimension. CONCLUSIONS #1. Suboptimal study. #2. Normal left ventricle size and function. #3. Grossly normal valvular function Previewed by: Dr. Lelo Otoole MD (Electronically Signed) Final Date: 28 April 2022 11:33
[2022-04-28 11:45] LABS: Glucose,Whole Blood 221 mg/dL (75-99)
--- NOTE | 2022-04-28 12:20 | P.PN ---
Subjective Progress Note Date: 04/28/22 The patient is seen at bedside and feels about the same. He feels his speech is about the same. Denies of any new neurological deficits. Patient had Yusuf virus PCR which was positive. Objective - Vital Signs Vital signs: Vital Signs Temp 98.3 F 04/28/22 04:38 Pulse 74 04/28/22 08:00 Resp 16 04/28/22 08:00 BP 127/74 04/28/22 08:00 Pulse Ox 94 L 04/28/22 08:00 FiO2 Intake & Output 04/27/22 04/28/22 04/28/22 18:59 06:59 18:59 Intake Total 940 240 Balance 940 240 Weight 105.687 kg Intake: Intake, IV Titration 400 Amount Sodium Chloride 0.9% 1, 400 000 ml @ 100 mls/hr IV . Q10H [facility] Rx#:[id number] Oral 540 240 Other: Voiding Method Toilet Toilet # Voids 3 - Exam GENERAL: The patient is lying in bed and is not in acute distress. NEUROLOGICAL: Higher mental function: The patient is awake, alert, oriented to self, place and time. Patient is following commands. Has moderate amount of expressive aphasia. No neglect. Cranial nerves: The left pupil is round, reactive to light. Right pupil is gaze grayish discoloration. Visual russell is full to confrontation on left. Blind over the right eye. Extraocular movement is intact no nystagmus is noted. Facial sensation is normal to touch throughout. The facial strength is normal throughout. Hearing is moderately decreased bilaterally to hand rub. Tongue is midline and moved [id number] without any difficulty. No dysarthria is noted. Shoulder shrug is normal bilaterally. Motor: Gait is deferred. The strength is left upper extremity is 4+ but no drift. Lowers are 4+ (stated old). Right upper is 5/5. Normal tone and bulk. Cerebellum: Normal finger to nose bilaterally. Sensation: Sensation is normal to touch throughout. Reflexes (right/left): 1+ throughout. Plantars are downgoing bilaterally. Some workup during this admission consisted of: TSH is 0.530 CT of the head is reported as suspected acute right middle frontal gyrus cortical and subcortical acute infarct without significant hemorrhagic transformation. Possible hyperdense right MCA versus artifact. I personally reviewed the CT of the head and I agree regarding the the infarct. Regarding the possible hyperdense right MCA I russell more artifact. Carotid duplex is reported as there is antegrade flow in the vertebral arteries. Images and measurements suggest less than 25% stenosis of both internal carotid arteries. 2-D echo was reported as suboptimal study. Normal left ventricular size and function. Grossly normal valvular function. Left atrium is normal in size. - Labs CBC & Chem 7: 04/28/22 08:17 04/28/22 08:17 Labs: Abnormal Lab Results - Last 24 Hours (Table) 04/27/22 04/27/22 04/27/22 Range/Units 11:59 11:59 11:59 WBC 11.9 H (3.8-10.6) k/uL Plt Count 146 L (150-450) k/uL Neutrophils # 8.0 H (1.3-7.7) k/uL APTT 21.8 L (22.0-30.0) sec Sodium 134 L (137-145) mmol/L Carbon Dioxide 18 L (22-30) mmol/L BUN 47 H (9-20) mg/dL Creatinine 1.97 H (0.66-1.25) mg/dL Glucose 325 H (74-99) mg/dL POC Glucose (mg/dL) (75-99) mg/dL Magnesium (1.6-2.3) mg/dL AST 16 L (17-59) U/L Urine Glucose (UA) (Negative) Coronavirus (PCR) (Not Detectd) 04/27/22 04/27/22 04/27/22 Range/Units 12:00 16:33 16:35 WBC (3.8-10.6) k/uL Plt Count (150-450) k/uL Neutrophils # (1.3-7.7) k/uL APTT (22.0-30.0) sec Sodium (137-145) mmol/L Carbon Dioxide (22-30) mmol/L BUN (9-20) mg/dL Creatinine (0.66-1.25) mg/dL Glucose (74-99) mg/dL POC Glucose (mg/dL) (75-99) mg/dL Magnesium 2.4 H (1.6-2.3) mg/dL AST (17-59) U/L Urine Glucose (UA) 4+ H (Negative) Coronavirus (PCR) Detected A (Not Detectd) 04/28/22 04/28/22 04/28/22 Range/Units 06:05 08:17 08:17 WBC (3.8-10.6) k/uL Plt Count 138 L (150-450) k/uL Neutrophils # (1.3-7.7) k/uL APTT (22.0-30.0) sec Sodium 135 L (137-145) mmol/L Carbon Dioxide 20 L (22-30) mmol/L BUN 47 H (9-20) mg/dL Creatinine 2.10 H (0.66-1.25) mg/dL Glucose 215 H (74-99) mg/dL POC Glucose (mg/dL) 228 H (75-99) mg/dL Magnesium (1.6-2.3) mg/dL AST (17-59) U/L Urine Glucose (UA) (Negative) Coronavirus (PCR) (Not Detectd) 04/28/22 Range/Units 11:43 WBC (3.8-10.6) k/uL Plt Count (150-450) k/uL Neutrophils # (1.3-7.7) k/uL APTT (22.0-30.0) sec Sodium (137-145) mmol/L Carbon Dioxide (22-30) mmol/L BUN (9-20) mg/dL Creatinine (0.66-1.25) mg/dL Glucose (74-99) mg/dL POC Glucose (mg/dL) 221 H (75-99) mg/dL Magnesium (1.6-2.3) mg/dL AST (17-59) U/L Urine Glucose (UA) (Negative) Coronavirus (PCR) (Not Detectd) Assessment and Plan Assessment: Acute CVA (right frontal on CT/MCA distribution. Presented with expressive aphasia and on examination felt has left upper extremity weakness). No IV tpa since outside window Fall about 3 weeks ago: Unsure cause. Diabetes mellitus and on presentation his sugar level is in 300's. 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 The patient was not on any antiplatelets at home (was taking ASA PRN). Continue Lipitor 40 mg daily at bedtime. MRI the brain is pending. Hemoglobin A1c, lipid panel TSH ordered by the primary team are pending PT OT and TICKET COUNTER are consulted Ordered MRI Lumbar spine since had recent fall and noticed his legs felt weak. Continue neuro checks Cardiac monitoring We'll defer the rest of the medical management to primary team For DVT prophylaxis the patient is on subcu heparin 5000 units every 8 hours The plan was discussed with the patient and his nurse. Sachin Moore M.D. Neuro-hospitalist Time with Patient: Less than 30
--- NOTE | 2022-04-28 13:11 | P.PN ---
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 Patient has significant difficulty speaking and therefore he is unable to give detailed history, most of the history was obtained from electronic medical record, apparently he was accompanied by his earlier and she provided much of the history. Per medical record Patient last normal was 8 AM yesterday and today approximately around 11 AM the patient has been having garbled speech. Patient refused come to the emergency department for further evaluation yesterday. Patient stated he is having difficulty getting his words out. He states he is taking ASA PRN and denies anticoagulation use. Patient is on simvastatin 10 mg daily at bedtime. He has remote history of tobacco use. Denies any alcohol use or illicit drug use. Patient remains hemodynamically stable, initial lab workup. No major abnormality slightly elevated creatinine. Review of Systems Patient is denying nausea vomiting diarrhea constipation fever, he is denying any shortness of breath headache, complete review of system could not be done due to clinical condition Past Medical History Past Medical History: Diabetes Mellitus, GERD/Reflux, Hyperlipidemia, Hypertension, Osteoarthritis (OA) Additional Past Medical History / Comment(s): hx migraines yrs ago, gout, History of Any Multi-Drug Resistant Organisms: None Reported Past Surgical History: Tonsillectomy Additional Past Surgical History / Comment(s): lens implant rt eye Past Anesthesia/Blood Transfusion Reactions: No Reported Reaction Past Psychological History: No Psychological Hx Reported Past Alcohol Use History: None Reported Past Drug Use History: None Reported - Past Family History Mother Family Medical History: Cancer Father Family Medical History: Diabetes Mellitus Medications and Allergies Home Medications Medication Instructions Recorded Confirmed Type Gabapentin [Neurontin] 100 mg PO BID 12/28/17 04/27/22 History Omeprazole [PriLOSEC] 20 mg PO AC-BRKFST 12/28/17 04/27/22 History atenoloL [Tenormin] 50 mg PO DAILY 12/28/17 04/27/22 History Alogliptin Benzoate [Alogliptin] 25 mg PO DAILY 03/20/19 04/27/22 History Hydrochlorothiazide 12.5 mg PO DAILY 12/19/21 04/27/22 History [hydroCHLOROthiazide] Losartan [Cozaar] 50 mg PO DAILY 12/19/21 04/27/22 History Albuterol Nebulized [Ventolin 2.5 mg INHALATION RT-Q6H PRN 04/27/22 04/27/22 History Nebulized] Amoxic-Pot Clav 875-125Mg 1 tab PO Q12HR 04/27/22 04/27/22 History [Augmentin 875-125] Benzonatate [Benzonatate Perle] 200 mg PO TID PRN 04/27/22 04/27/22 History Empagliflozin [Jardiance] 25 mg PO DAILY 04/27/22 04/27/22 History Lidocaine 5% Patch [Lidoderm] 1 patch TOPICAL DAILY PRN 04/27/22 04/27/22 History Simvastatin [Zocor] 10 mg PO HS 04/27/22 04/27/22 History glipiZIDE [Glucotrol] 20 mg PO BID 04/27/22 04/27/22 History predniSONE 50 mg PO DAILY 04/27/22 04/27/22 History Allergies Allergy/AdvReac Type Severity Reaction Status Date / Time No Known Allergies Allergy Verified 04/27/22 13:00 Physical Exam Vitals: Vital Signs Temp Pulse Resp BP Pulse Ox 04/27/22 14:15 67 18 04/27/22 14:05 62 18 04/27/22 13:06 61 14 110/73 94 L 04/27/22 11:21 97.6 F 70 14 129/87 96 04/27/22 10:59 98.2 F 69 18 130/74 95 Intake and Output 04/27/22 04/27/22 04/27/22 06:59 14:59 22:59 Other: Weight 105.687 kg General: non toxic, no acute distress, alert oriented to time place and person, patient has expressive aphasia Head: atraumatic, normocephalic, symmetric Eyes: no lid lesion], anicteric sclera Mouth: no lip lesion, mucus membranes moist Cardiovascular: S1S2 reg rate and rhythm, no murmur, no gallop Lungs: Bilateral equal air entry, no wheezing no rhonchi no crackles. Abdominal: soft, nontender to palpation, no guarding, no appreciable organomegaly Ext: no gross muscle atrophy, no edema extremities warm to suppose a positive Neuro: Alert oriented to time place and person, expressive aphasia Psych: Mood and affect appropriate, patient not so certain Skin exam: No rashes no jaundice. Results CBC & Chem 7: 04/27/22 11:59 04/27/22 11:59 Labs: Abnormal Lab Results - Last 24 Hours (Table) 04/27/22 04/27/22 04/27/22 Range/Units 11:19 11:59 11:59 WBC 11.9 H (3.8-10.6) k/uL Plt Count 146 L (150-450) k/uL Neutrophils # 8.0 H (1.3-7.7) k/uL APTT 21.8 L (22.0-30.0) sec Sodium (137-145) mmol/L Carbon Dioxide (22-30) mmol/L BUN (9-20) mg/dL Creatinine (0.66-1.25) mg/dL Glucose (74-99) mg/dL POC Glucose (mg/dL) 303 H (75-99) mg/dL AST (17-59) U/L Urine Glucose (UA) (Negative) 04/27/22 04/27/22 Range/Units 11:59 12:00 WBC (3.8-10.6) k/uL Plt Count (150-450) k/uL Neutrophils # (1.3-7.7) k/uL APTT (22.0-30.0) sec Sodium 134 L (137-145) mmol/L Carbon Dioxide 18 L (22-30) mmol/L BUN 47 H (9-20) mg/dL Creatinine 1.97 H (0.66-1.25) mg/dL Glucose 325 H (74-99) mg/dL POC Glucose (mg/dL) (75-99) mg/dL AST 16 L (17-59) U/L Urine Glucose (UA) 4+ H (Negative) Assessment and Plan Assessment: Patient continues to have difficulty articulation continued to have significant expressive aphasia we will continue to monitor patient likely needs speech therapy consider rehab if he qualifies Pelvic positive stable no symptoms 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 Patient has expressive aphasia, patient presented out of window for TPA Patient was given full dose of aspirin Currently on baby aspirin and Plavix We'll check fasting lipid panel TSH hemoglobin A1c MRI, echocardiogram, carotid ultrasound ordered Continue neuro checks cardiac telemetry We'll consult neurology Recent fall Unclear etiology, cannot exclude syncope Checking MRI echocardiogram carotid ultrasound as mentioned above Hypertension Hold antihypertensive medication Allow permissive hypertension Resume antihypertensive medications as able Hyperlipidemia Check fasting lipid panel Continue statin Diabetes mellitus Check hemoglobin A1c Hold oral hypoglycemic Continues on sliding scale Right eye blindness Questionable history for cataract Unclear reason for postsurgical blindness Patient reported he didn't seek medical care for further evaluation Objective - Vital Signs Vital signs: Vital Signs Temp 98.3 F 04/28/22 04:38 Pulse 74 04/28/22 08:00 Resp 16 04/28/22 08:00 BP 127/74 04/28/22 08:00 Pulse Ox 94 L 04/28/22 08:00 FiO2 Intake & Output 04/27/22 04/28/22 04/28/22 18:59 06:59 18:59 Intake Total 940 240 Balance 940 240 Weight 105.687 kg Intake: Intake, IV Titration 400 Amount Sodium Chloride 0.9% 1, 400 000 ml @ 100 mls/hr IV . Q10H [facility] Rx#:[id number] Oral 540 240 Other: Voiding Method Toilet Toilet # Voids 3 - Labs CBC & Chem 7: 04/28/22 08:17 04/28/22 08:17 Labs: Abnormal Lab Results - Last 24 Hours (Table) 04/27/22 04/27/22 04/28/22 Range/Units 16:33 16:35 06:05 Plt Count (150-450) k/uL Sodium (137-145) mmol/L Carbon Dioxide (22-30) mmol/L BUN (9-20) mg/dL Creatinine (0.66-1.25) mg/dL Glucose (74-99) mg/dL POC Glucose (mg/dL) 228 H (75-99) mg/dL Magnesium 2.4 H (1.6-2.3) mg/dL Coronavirus (PCR) Detected A (Not Detectd) 04/28/22 04/28/22 04/28/22 Range/Units 08:17 08:17 11:43 Plt Count 138 L (150-450) k/uL Sodium 135 L (137-145) mmol/L Carbon Dioxide 20 L (22-30) mmol/L BUN 47 H (9-20) mg/dL Creatinine 2.10 H (0.66-1.25) mg/dL Glucose 215 H (74-99) mg/dL POC Glucose (mg/dL) 221 H (75-99) mg/dL Magnesium (1.6-2.3) mg/dL Coronavirus (PCR) (Not Detectd)
--- NOTE | 2022-04-28 14:13 | US ---
EXAMINATION TYPE: US renals and bladder DATE OF EXAM: 04/28/2022 COMPARISON: NONE CLINICAL HISTORY: 76-year-old male CO[place]. TECHNIQUE: Multiple sonographic images of the kidneys and bladder. FINDINGS: Paper Inserter notes: Exam done portable. EXAM MEASUREMENTS: Right Kidney: 11.1 x 6.0 x 5.2 cm Left Kidney: 12.9 x 7.1 x 6.1 cm Right Kidney: No hydronephrosis or masses seen Left Kidney: No hydronephrosis or masses seen Bladder: 1.1cm echogenic focus seen along posterior wall near the expected right ureteral orifice Bilateral Jets seen: right jet seen, left jet not seen IMPRESSION: 1. No hydronephrosis. 2. 1.1 cm nodular echogenic focus along the posterior wall of the bladder near the expected right ure teral orifice. Stone partially impacted at the ureteral orifice or within the bladder lumen are consi dered. If not symptomatic and no intervention at this time, consider 6 month follow-up ultrasound to reassess. The presence of the right ureteral jet argues against an obstruction.
[2022-04-28 15:40] LABS: LDL Cholesterol,Calculated 87.6 mg/dL (0.0-131.0)
[2022-04-28] MEDS: ALBUTEROL HFA INHALER INHALATION PRN ×2 (15:58→20:04)
[2022-04-28 16:40] LABS: Glucose,Whole Blood 283 mg/dL (75-99)
[2022-04-28 20:48] LABS: Glucose,Whole Blood 178 mg/dL (75-99)
[2022-04-28] MEDS: ATORVASTATIN 40 MG TAB PO SCH (21:28)
[2022-04-28] MEDS: BENZONATATE 100 MG CAP PO PRN (21:29)
[2022-04-29] MEDS: HEPARIN SODIUM,PORCINE/PF 5,000 UNIT/0.5 ML SYRINGE SQ SCH ×3 (01:13→18:05)
[2022-04-29] MEDS: BENZONATATE 100 MG CAP PO PRN (05:15)
[2022-04-29] MEDS: ALBUTEROL HFA INHALER INHALATION PRN ×3 (05:37→21:24)
[2022-04-29 06:34] LABS: Glucose,Whole Blood 238 mg/dL (75-99)
[2022-04-29] MEDS: SODIUM CHLORIDE 0.9% 1,000 ML IV SCH ×2 (06:35→12:14)
[2022-04-29] MEDS: PANTOPRAZOLE 40 MG TABLET PO SCH (06:37)
[2022-04-29] MEDS: INSULIN ASPART (NovoLOG) 100 UNIT/ML VIAL SQ SCH ×4 (06:37→21:23)
[2022-04-29] MEDS: atenoloL 50 MG TAB PO SCH (09:07)
[2022-04-29] MEDS: CLOPIDOGREL 75 MG TAB PO SCH (09:07)
[2022-04-29] MEDS: ASPIRIN 81 MG PO SCH (09:08)
[2022-04-29] MEDS: GABAPENTIN 100 MG CAP PO SCH ×2 (09:08→21:23)
[2022-04-29] MEDS: NON FORMULARY DRUG (Empagliflozin [Jardiance] 25 MG Tablet) PO SCH (09:08)
[2022-04-29 10:32] LABS: Albumin 3.6 g/dL (3.5-5.0); Calcium 8.4 mg/dL (8.4-10.2); Potassium 4.6 mmol/L (3.5-5.1); Total Bilirubin 0.7 mg/dL (0.2-1.3); Total Protein 6.8 g/dL (6.3-8.2)
[2022-04-29 10:59] LABS: Basophils # (A) 0.1 k/uL (0-0.2); Basophils % (A) 1 %; Eosinophils # (A) 0.4 k/uL (0-0.7); Eosinophils % (A) 4 %; HCT 48.4 % (39.0-53.0); HGB 15.5 gm/dL (13.0-17.5); Lymphocytes # (A) 1.9 k/uL (1.0-4.8); Lymphocytes % (A) 19 %; MCH 28.8 pg (25.0-35.0); MCHC 32.1 g/dL (31.0-37.0); MCV 89.7 fL (80.0-100.0); Mean Platelet Volume 8.3; Monocytes # (A) 0.6 k/uL (0-1.0); Monocytes % (A) 5 %; Neutrophils % (A) 70 %; Platelet Count 151 k/uL (150-450); RBC 5.39 m/uL (4.30-5.90); RDW 13.7 % (11.5-15.5); WBC 10.1 k/uL (3.8-10.6)
[2022-04-29 11:55] LABS: Glucose,Whole Blood 260 mg/dL (75-99)
[2022-04-29 12:04] VITALS: BMI 29.9
--- NOTE | 2022-04-29 12:15 | P.PN ---
Subjective Progress Note Date: 04/29/22 The patient is seen at bedside and feels about the same. He feels his speech has not changed. Denies of any new neurological issues. MRI of the brain is still pending Objective - Vital Signs Vital signs: Vital Signs Temp 98 F 04/29/22 08:00 Pulse 81 04/29/22 08:00 Resp 18 04/29/22 08:00 BP 118/73 04/29/22 08:00 Pulse Ox 93 L 04/29/22 08:00 FiO2 Intake & Output 04/28/22 04/29/22 04/29/22 18:59 06:59 18:59 Intake Total 240 750 Balance 240 750 Weight 105.687 kg Intake: Intake, IV Titration 300 Amount Sodium Chloride 0.9% 1, 300 000 ml @ 100 mls/hr IV . Q10H [facility] Rx#:[id number] Oral 240 450 Other: Voiding Method Toilet Toilet # Voids 2 3 - Exam GENERAL: The patient is lying in bed and is not in acute distress. NEUROLOGICAL: Higher mental function: The patient is awake, alert, oriented to self, place and time. Patient is following commands. Has moderate amount of expressive aphasia. No neglect. Cranial nerves: The left pupil is round, reactive to light. Right pupil is gaze grayish discoloration. Visual russell is full to confrontation on left. Blind over the right eye. Extraocular movement is intact no nystagmus is noted. Facial sensation is normal to touch throughout. The facial strength is normal throughout. Hearing is moderately decreased bilaterally to hand rub. Tongue is midline and moved [id number] without any difficulty. No dysarthria is noted. Shoulder shrug is normal bilaterally. Motor: Gait is deferred. The strength is left upper extremity is 4+ but no drift. Lowers are 4+ (stated old). Right upper is 5/5. Normal tone and bul k. Cerebellum: Normal finger to nose bilaterally. Sensation: Sensation is normal to touch throughout. Reflexes (right/left): 1+ throughout. Plantars are downgoing bilaterally. Some workup during this admission consisted of: TSH is 0.530 HbA1c: 9.1 Lipid panel: Triglyceride of 280, cholesterol of 177, LDL of 87 and HDL of 33. CT of the head is reported as suspected acute right middle frontal gyrus cortical and subcortical acute infarct without significant hemorrhagic transformation. Possible hyperdense right MCA versus artifact. I personally reviewed the CT of the head and I agree regarding the the infarct. Regarding the possible hyperdense right MCA I russell more artifact. Carotid duplex is reported as there is antegrade flow in the vertebral arteries. Images and measurements suggest less than 25% stenosis of both internal carotid arteries. 2-D echo was reported as suboptimal study. Normal left ventricular size and function. Grossly normal valvular function. Left atrium is normal in size. - Labs CBC & Chem 7: 04/29/22 09:25 04/29/22 09:25 Labs: Abnormal Lab Results - Last 24 Hours (Table) 04/27/22 04/28/22 04/28/22 Range/Units 16:35 08:17 08:17 Sodium (137-145) mmol/L Carbon Dioxide (22-30) mmol/L BUN (9-20) mg/dL Creatinine (0.66-1.25) mg/dL Glucose (74-99) mg/dL POC Glucose (mg/dL) (75-99) mg/dL Hemoglobin A1c 9.1 H (0.0-6.0) % Triglycerides 280.00 H (0.00-149.00) mg/dL VLDL Cholesterol, Calc 56.00 H (5.00-40.00) mg/dL HDL Cholesterol 33.40 L (40.00-60.00) mg/dL Coronavirus (PCR) Presumptive Positive A (Not Detected) 04/28/22 04/28/22 04/29/22 Range/Units 16:38 20:47 06:33 Sodium (137-145) mmol/L Carbon Dioxide (22-30) mmol/L BUN (9-20) mg/dL Creatinine (0.66-1.25) mg/dL Glucose (74-99) mg/dL POC Glucose (mg/dL) 283 H 178 H 238 H (75-99) mg/dL Hemoglobin A1c (0.0-6.0) % Triglycerides (0.00-149.00) mg/dL VLDL Cholesterol, Calc (5.00-40.00) mg/dL HDL Cholesterol (40.00-60.00) mg/dL Coronavirus (PCR) (Not Detected) 04/29/22 04/29/22 Range/Units 09:25 11:53 Sodium 132 L (137-145) mmol/L Carbon Dioxide 17 L (22-30) mmol/L BUN 42 H (9-20) mg/dL Creatinine 2.03 H (0.66-1.25) mg/dL Glucose 377 H (74-99) mg/dL POC Glucose (mg/dL) 260 H (75-99) mg/dL Hemoglobin A1c (0.0-6.0) % Triglycerides (0.00-149.00) mg/dL VLDL Cholesterol, Calc (5.00-40.00) mg/dL HDL Cholesterol (40.00-60.00) mg/dL Coronavirus (PCR) (Not Detected) Assessment and Plan Assessment: Acute CVA (right frontal on CT/MCA distribution. Presented with expressive aphasia and on examination felt has left upper extremity weakness). No IV tpa since outside window Fall about 3 weeks ago: Unsure cause. Diabetes mellitus and on presentation his sugar level is in 300's. 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 The patient was not on any antiplatelets at home (was taking ASA PRN). Continue Lipitor 40 mg daily at bedt ja. MRI the brain is pending. PT OT and VP ANALYTICS are consulted MRI Lumbar spine since had recent fall and noticed his legs felt weak: Pending. Continue neuro checks Cardiac monitoring We'll defer the rest of the medical management to primary team For DVT prophylaxis the patient is on subcu heparin 5000 units every 8 hours The plan was discussed with the patient and his nurse. Sachin Moore M.D. Neuro-hospitalist Time with Patient: Less than 30
--- NOTE | 2022-04-29 14:18 | P.PN ---
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 Patient has significant difficulty speaking and therefore he is unable to give detailed history, most of the history was obtained from electronic medical record, apparently he was accompanied by his earlier and she provided much of the history. Per medical record Patient last normal was 8 AM yesterday and today approximately around 11 AM the patient has been having garbled speech. Patient refused come to the emergency department for further evaluation yesterday. Patient stated he is having difficulty getting his words out. He states he is taking ASA PRN and denies anticoagulation use. Patient is on simvastatin 10 mg daily at bedtime. He has remote history of tobacco use. Denies any alcohol use or illicit drug use. Patient remains hemodynamically stable, initial lab workup. No major abnormality slightly elevated creatinine. Review of Systems Patient is denying nausea vomiting diarrhea constipation fever, he is denying any shortness of breath headache, complete review of system could not be done due to clinical condition Past Medical History Past Medical History: Diabetes Mellitus, GERD/Reflux, Hyperlipidemia, Hypertension, Osteoarthritis (OA) Additional Past Medical History / Comment(s): hx migraines yrs ago, gout, History of Any Multi-Drug Resistant Organisms: None Reported Past Surgical History: Tonsillectomy Additional Past Surgical History / Comment(s): lens implant rt eye Past Anesthesia/Blood Transfusion Reactions: No Reported Reaction Past Psychological History: No Psychological Hx Reported Past Alcohol Use History: None Reported Past Drug Use History: None Reported - Past Family History Mother Family Medical History: Cancer Father Family Medical History: Diabetes Mellitus Medications and Allergies Home Medications Medication Instructions Recorded Confirmed Type Gabapentin [Neurontin] 100 mg PO BID 12/28/17 04/27/22 History Omeprazole [PriLOSEC] 20 mg PO AC-BRKFST 12/28/17 04/27/22 History atenoloL [Tenormin] 50 mg PO DAILY 12/28/17 04/27/22 History Alogliptin Benzoate [Alogliptin] 25 mg PO DAILY 03/20/19 04/27/22 History Hydrochlorothiazide 12.5 mg PO DAILY 12/19/21 04/27/22 History [hydroCHLOROthiazide] Losartan [Cozaar] 50 mg PO DAILY 12/19/21 04/27/22 History Albuterol Nebulized [Ventolin 2.5 mg INHALATION RT-Q6H PRN 04/27/22 04/27/22 History Nebulized] Amoxic-Pot Clav 875-125Mg 1 tab PO Q12HR 04/27/22 04/27/22 History [Augmentin 875-125] Benzonatate [Benzonatate Perle] 200 mg PO TID PRN 04/27/22 04/27/22 History Empagliflozin [Jardiance] 25 mg PO DAILY 04/27/22 04/27/22 History Lidocaine 5% Patch [Lidoderm] 1 patch TOPICAL DAILY PRN 04/27/22 04/27/22 History Simvastatin [Zocor] 10 mg PO HS 04/27/22 04/27/22 History glipiZIDE [Glucotrol] 20 mg PO BID 04/27/22 04/27/22 History predniSONE 50 mg PO DAILY 04/27/22 04/27/22 History Allergies Allergy/AdvReac Type Severity Reaction Status Date / Time No Known Allergies Allergy Verified 04/27/22 13:00 Physical Exam Vitals: Vital Signs Temp Pulse Resp BP Pulse Ox 04/27/22 14:15 67 18 04/27/22 14:05 62 18 04/27/22 13:06 61 14 110/73 94 L 04/27/22 11:21 97.6 F 70 14 129/87 96 04/27/22 10:59 98.2 F 69 18 130/74 95 Intake and Output 04/27/22 04/27/22 04/27/22 06:59 14:59 22:59 Other: Weight 105.687 kg General: non toxic, no acute distress, alert oriented to time place and person, patient has expressive aphasia Head: atraumatic, normocephalic, symmetric Eyes: no lid lesion], anicteric sclera Mouth: no lip lesion, mucus membranes moist Cardiovascular: S1S2 reg rate and rhythm, no murmur, no gallop Lungs: Bilateral equal air entry, no wheezing no rhonchi no crackles. Abdominal: soft, nontender to palpation, no guarding, no appreciable organomegaly Ext: no gross muscle atrophy, no edema extremities warm to suppose a positive Neuro: Alert oriented to time place and person, expressive aphasia Psych: Mood and affect appropriate, patient not so certain Skin exam: No rashes no jaundice. Results CBC & Chem 7: 04/27/22 11:59 04/27/22 11:59 Labs: Abnormal Lab Results - Last 24 Hours (Table) 04/27/22 04/27/22 04/27/22 Range/Units 11:19 11:59 11:59 WBC 11.9 H (3.8-10.6) k/uL Plt Count 146 L (150-450) k/uL Neutrophils # 8.0 H (1.3-7.7) k/uL APTT 21.8 L (22.0-30.0) sec Sodium (137-145) mmol/L Carbon Dioxide (22-30) mmol/L BUN (9-20) mg/dL Creatinine (0.66-1.25) mg/dL Glucose (74-99) mg/dL POC Glucose (mg/dL) 303 H (75-99) mg/dL AST (17-59) U/L Urine Glucose (UA) (Negative) 04/27/22 04/27/22 Range/Units 11:59 12:00 WBC (3.8-10.6) k/uL Plt Count (150-450) k/uL Neutrophils # (1.3-7.7) k/uL APTT (22.0-30.0) sec Sodium 134 L (137-145) mmol/L Carbon Dioxide 18 L (22-30) mmol/L BUN 47 H (9-20) mg/dL Creatinine 1.97 H (0.66-1.25) mg/dL Glucose 325 H (74-99) mg/dL POC Glucose (mg/dL) (75-99) mg/dL AST 16 L (17-59) U/L Urine Glucose (UA) 4+ H (Negative) Assessment and Plan Assessment: Patient continues to have difficulty articulation continued to have significant expressive aphasia we will continue to monitor patient likely needs speech therapy consider rehab if he qualifies Pelvic positive stable no symptoms 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 Patient has expressive aphasia, patient presented out of window for TPA Patient was given full dose of aspirin Currently on baby aspirin and Plavix We'll check fasting lipid panel TSH hemoglobin A1c MRI, echocardiogram, carotid ultrasound ordered Continue neuro checks cardiac telemetry We'll consult neurology Recent fall Unclear etiology, cannot exclude syncope Checking MRI echocardiogram carotid ultrasound as mentioned above Hypertension Hold antihypertensive medication Allow permissive hypertension Resume antihypertensive medications as able Hyperlipidemia Check fasting lipid panel Continue statin Diabetes mellitus Check hemoglobin A1c Hold oral hypoglycemic Continues on sliding scale Right eye blindness Questionable history for cataract Unclear reason for postsurgical blindness Patient reported he didn't seek medical care for further evaluation Hopefully discharge in a 1day or 2 home Objective - Vital Signs Vital signs: Vital Signs Temp 98 F 04/29/22 08:00 Pulse 81 04/29/22 08:00 Resp 18 04/29/22 08:00 BP 118/73 04/29/22 08:00 Pulse Ox 93 L 04/29/22 08:00 FiO2 Intake & Output 04/28/22 04/29/22 04/29/22 18:59 06:59 18:59 Intake Total 240 750 Balance 240 750 Weight 105.687 kg Intake: Intake, IV Titration 300 Amount Sodium Chloride 0.9% 1, 300 000 ml @ 100 mls/hr IV . Q10H [facility] Rx#:[id number] Oral 240 450 Other: Voiding Method Toilet Toilet # Voids 2 3 - Labs CBC & Chem 7: 04/29/22 09:25 04/29/22 09:25 Labs: Abnormal Lab Results - Last 24 Hours (Table) 04/27/22 04/28/22 04/28/22 Range/Units 16:35 08:17 08:17 Sodium (137-145) mmol/L Carbon Dioxide (22-30) mmol/L BUN (9-20) mg/dL Creatinine (0.66-1.25) mg/dL Glucose (74-99) mg/dL POC Glucose (mg/dL) (75-99) mg/dL Hemoglobin A1c 9.1 H (0.0-6.0) % Triglycerides 280.00 H (0.00-149.00) mg/dL VLDL Cholesterol, Calc 56.00 H (5.00-40.00) mg/dL HDL Cholesterol 33.40 L (40.00-60.00) mg/dL Coronavirus (PCR) Presumptive Positive A (Not Detected) 04/28/22 04/28/22 04/29/22 Range/Units 16:38 20:47 06:33 Sodium (137-145) mmol/L Carbon Dioxide (22-30) mmol/L BUN (9-20) mg/dL Creatinine (0.66-1.25) mg/dL Glucose (74-99) mg/dL POC Glucose (mg/dL) 283 H 178 H 238 H (75-99) mg/dL Hemoglobin A1c (0.0-6.0) % Triglycerides (0.00-149.00) mg/dL VLDL Cholesterol, Calc (5.00-40.00) mg/dL HDL Cholesterol (40.00-60.00) mg/dL Coronavirus (PCR) (Not Detected) 04/29/22 04/29/22 Range/Units 09:25 11:53 Sodium 132 L (137-145) mmol/L Carbon Dioxide 17 L (22-30) mmol/L BUN 42 H (9-20) mg/dL Creatinine 2.03 H (0.66-1.25) mg/dL Glucose 377 H (74-99) mg/dL POC Glucose (mg/dL) 260 H (75-99) mg/dL Hemoglobin A1c (0.0-6.0) % Triglycerides (0.00-149.00) mg/dL VLDL Cholesterol, Calc (5.00-40.00) mg/dL HDL Cholesterol (40.00-60.00) mg/dL Coronavirus (PCR) (Not Detected)
[2022-04-29 16:59] LABS: Glucose,Whole Blood 217 mg/dL (75-99)
[2022-04-29] MEDS: guaiFENesin SYRUP 100MG/5ML 200 MG/10 ML CUP PO PRN (18:04)
[2022-04-29 20:25] LABS: Glucose,Whole Blood 215 mg/dL (75-99)
[2022-04-29] MEDS: ATORVASTATIN 40 MG TAB PO SCH (21:23)
[2022-04-30] MEDS: guaiFENesin SYRUP 100MG/5ML 200 MG/10 ML CUP PO PRN ×4 (00:08→20:13)
[2022-04-30] MEDS: SODIUM CHLORIDE 0.9% 1,000 ML IV SCH ×3 (00:08→20:21)
[2022-04-30] MEDS: HEPARIN SODIUM,PORCINE/PF 5,000 UNIT/0.5 ML SYRINGE SQ SCH ×2 (00:08→22:06)
[2022-04-30 05:43] LABS: Glucose,Whole Blood 206 mg/dL (75-99)
[2022-04-30] MEDS: PANTOPRAZOLE 40 MG TABLET PO SCH (06:25)
[2022-04-30] MEDS: INSULIN ASPART (NovoLOG) 100 UNIT/ML VIAL SQ SCH ×4 (06:28→20:14)
--- NOTE | 2022-04-30 06:36 | MR ---
EXAMINATION TYPE: MR brain/lspine wo con DATE OF EXAM: 04/29/2022 COMPARISON: None HISTORY: Neuro deficit, acute, stroke suspected Multiecho and multiplanar imaging of the brain and lumbar spine with no contrast. Brain. The diffusion images show a gyriform 2.5 cm area of increased signal in the right posterior frontal l obe cortex consistent with an acute infarct. There is no mass effect or midline shift. No evidence of intracranial hemorrhage. There are on the T2 and FLAIR images scattered areas of small foci of incre ased signal in the white matter. Most of these measure less than 4 mm in total number is more than 25 . The brainstem is intact. Cerebellum is intact. The corpus callosum is intact. No evidence of a sell ar mass. No evidence of orbital mass. IMPRESSION: There is evidence of an acute cortical right posterior frontal lobe infarct. Multiple tiny white matter high signal foci likely related to microvascular ischemia. MRI scan lumbar spine. The lumbar vertebrae have normal alignment. No compression fracture. There is narrowing of the disc s paces from L3 to S1. There is some mild hypertrophic facet arthropathy at L2-3. There is no lumbar pa raspinal mass. No compression fracture. No evidence of any significant lumbar spinal stenosis. No foc al bone destruction. The sacroiliac joints appear intact. 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 No fracture. No spinal stenosis.
[2022-04-30] MEDS ORDERED: HEPARIN SODIUM 1,000 UN/ML (10ML VL) IV PRN (09:33)
[2022-04-30] MEDS ORDERED: HEPARIN SODIUM 1,000 UN/ML (10ML VL) IV ONE (09:33)
[2022-04-30] MEDS ORDERED: HEPARIN SOD,PORK IN 0.45% NACL 25,000 UNIT in 0.45% NACL 1 250ML.BAG IV SCH (09:45)
[2022-04-30] MEDS: NON FORMULARY DRUG (Empagliflozin [Jardiance] 25 MG Tablet) PO SCH (09:54)
[2022-04-30] MEDS: GABAPENTIN 100 MG CAP PO SCH ×2 (09:54→20:13)
[2022-04-30] MEDS: atenoloL 50 MG TAB PO SCH (09:54)
[2022-04-30] MEDS: ASPIRIN 81 MG PO SCH (09:54)
[2022-04-30] MEDS: CLOPIDOGREL 75 MG TAB PO SCH (09:54)
[2022-04-30 11:15] LABS: Prothrombin Time 11.3 sec (9.0-12.0)
[2022-04-30 12:06] LABS: Glucose,Whole Blood 211 mg/dL (75-99)
[2022-04-30 12:20] LABS: Partial Thromboplastin Time 23.3 sec (22.0-30.0)
--- NOTE | 2022-04-30 12:23 | P.CRDCN ---
History of Present Illness History of present illness: HISTORY OF PRESENTING ILLNESS This is a pleasant 76-year-old male past medical history significant for hypertension, dyslipidemia, type 2 diabetes, migraines, GERD, osteoarthritis, former smoker, right eye implant and blindness. He does not follow with a food and beverage outlets manager. We have been asked to see in consultation for or event monitor. Patient presented to the emergency department on 04/27/2022 with Covid 19 also found to have an acute CVA. noticed the patient had a change in his spee ch, she she states that he woke up from a nap and had garbled speech. Patient also noted to have some left upper extremity weakness. MRI of the brain report revealed acute cortical right posterior frontal lobe infarct. Patient denies a history of arrhythmia/atrial fibrillation, CAD, SD, prior stroke. Patient seen and examined at bedside, he believes his speech has not changed. He does endorse cough with productive sputum. DIAGNOSTICS -EKG on admission revealed sinus rhythm, heart rate 74, no acute ST ST-T wave abnormalities suggest ischemia. -Telemetry tracings indicate sinus mechanism with heart rate in the 60s70s. -Echocardiogram revealed EF 55-60%, no significant wall motion abnormalities, trace mitral regurgitation and trace tricuspid regurgitation -Brain CT report revealed acute right middle frontal gyrus cortical subcortical Infarct. Without significant hemorrhagic transformation. Questionable hyperdense right MCA versus artifact. -Carotid dopplers report revealed less than 25% stenosis in both internal carotid arteries -Renal US report revealed no hydronephrosis, 1.1 cm nodular echogenic focus along the posterior wall near the bladder. -Laboratory reviewed, WBC 10, hemoglobin 15.5, platelets 151, d-dimer 5.6, sodium 132, potassium 4.6, BUN 42, serum creatinine 2.0, magnesium 2.4. Triglycerides 280, cholesterol 117, LDL 87, HDL 33, Covid positive -Current home cardiac medications include losartan 50 mg daily, simvastatin 10 mg nightly, atenolol 50 mg daily, Hydrochlorothiazide 25 mg daily REVIEW OF SYSTEMS At the time of my exam: CONSTITUTIONAL: Denies fever or chills. CARDIOVASCULAR: Denies chest pain, shortness of breath, orthopnea, PND or palpitations. RESPIRATORY: + cough, +sputum GASTROINTESTINAL: Denies abdominal pain, diarrhea, constipation, nausea or vomiting. MUSCULOSKELETAL: Denies myalgias. NEUROLOGIC: Denies numbness, tingling, headacbe or weakness. ENDOCRINE: Denies fatigue, weight change, polydipsia or polyurina. GENITOURINARY: Denies burning, hematuria or urgency with micturation. HEMATOLOGIC: Denies history of anemia or bleeding. PHYSICAL EXAMINATION Blood pressure 112/68, heart rate 76, afebrile, oxygen saturation 92% room air CONSTITUTIONAL: No apparent distress. HEENT: Head is normocephalic. Pupils are equal, round. Sclerae anicteric. Mucous membranes of the mouth are moist. No JVD. No carotid bruit. CHEST EXAMINATION: Lungs are clear to auscultation. No chest wall tenderness is noted on palpation or with deep breathing. HEART EXAMINATION: Regular rate and rhythm. S1, S2 heard. No murmurs, gallops or rub. ABDOMEN: Soft, nontender. Positive bowel sounds. EXTREMITIES: 2+ peripheral pulses, no lower extremity edema and no calf tenderness. NEUROLOGIC EXAMINATION: Patient is awake, alert and oriented x3. ASSESSMENT Acute CVA Covid 19 Infection Acute kidney injury History of hypertension Dyslipidemia Type 2 Diabetes History of migraine headaches Former smoker PLAN Recommend 30 day event monitor on discharge, order placed Patient seen and evaluated by Dr. Boswell, There is a high suspicion for atrial fibrillation and also hypercoagulable state secondary to covid-19 infection. We recommend starting Eliquis 5mg BID. Will discuss with neurology. Hold starting at this time. Patient currently on aspirin 81 mg daily, atenolol 50 mg daily, Plavix 75 mg daily Further recommendations based on clinical course Nurse practitioner note has been reviewed by physician. Signing provider agrees with the documented findings, assessment, and plan of care. Past Medical History Past Medical History: Diabetes Mellitus, GERD/Reflux, Hyperlipidemia, Hypertension, Osteoarthritis (OA) Additional Past Medical History / Comment(s): hx migraines yrs ago, gout, History of Any Multi-Drug Resistant Organisms: None Reported Past Surgical History: Tonsillectomy Additional Past Surgical History / Comment(s): lens implant rt eye Past Anesthesia/Blood Transfusion Reactions: No Reported Reaction Past Psychological History: No Psychological Hx Reported Past Alcohol Use History: None Reported Past Drug Use History: None Reported - Past Family History Mother Family Medical History: Cancer Father Family Medical History: Diabetes Mellitus Medications and Allergies Home Medications Medication Instructions Recorded Confirmed Type Gabapentin [Neurontin] 100 mg PO BID 12/28/17 04/27/22 History Omeprazole [PriLOSEC] 20 mg PO AC-BRKFST 12/28/17 04/27/22 History atenoloL [Tenormin] 50 mg PO DAILY 12/28/17 04/27/22 History Alogliptin Benzoate [Alogliptin] 25 mg PO DAILY 03/20/19 04/27/22 History Hydrochlorothiazide 12.5 mg PO DAILY 12/19/21 04/27/22 History [hydroCHLOROthiazide] Losartan [Cozaar] 50 mg PO DAILY 12/19/21 04/27/22 History Albuterol Nebulized [Ventolin 2.5 mg INHALATION RT-Q6H PRN 04/27/22 04/27/22 History Nebulized] Amoxic-Pot Clav 875-125Mg 1 tab PO Q12HR 04/27/22 04/27/22 History [Augmentin 875-125] Benzonatate [Benzonatate Perle] 200 mg PO TID PRN 04/27/22 04/27/22 History Empagliflozin [Jardiance] 25 mg PO DAILY 04/27/22 04/27/22 History Lidocaine 5% Patch [Lidoderm] 1 patch TOPICAL DAILY PRN 04/27/22 04/27/22 History Simvastatin [Zocor] 10 mg PO HS 04/27/22 04/27/22 History glipiZIDE [Glucotrol] 20 mg PO BID 04/27/22 04/27/22 History predniSONE 50 mg PO DAILY 04/27/22 04/27/22 History Allergies Allergy/AdvReac Type Severity Reaction Status Date / Time No Known Allergies Allergy Verified 04/27/22 13:00 Physical Exam Vitals: Vital Signs Temp Pulse Resp BP Pulse Ox 04/30/22 04:00 98 F 69 18 124/75 96 04/30/22 02:00 72 18 04/30/22 00:00 97.6 F 72 18 109/62 95 04/29/22 20:00 98 F 76 18 137/73 95 04/29/22 16:00 98 F 79 18 149/73 95 04/29/22 14:00 18 04/29/22 13:00 97.7 F 18 94 L 04/29/22 12:00 97.7 F 71 18 134/71 94 L Intake and Output 04/29/22 04/30/22 04/30/22 22:59 06:59 14:59 Intake Total 220 240 Balance 220 240 Intake: Oral 220 240 Other: Voiding Method Toilet Toilet # Voids 1 2 Results 04/30/22 09:57 04/29/22 09:25 Cardiac Enzymes 04/29/22 Range/Units 09:25 AST 19 (17-59) U/L CBC 04/29/22 Range/Units 09:25 WBC 10.1 (3.8-10.6) k/uL RBC 5.39 (4.30-5.90) m/uL Hgb 15.5 (13.0-17.5) gm/dL Hct 48.4 (39.0-53.0) % Plt Count 151 (150-450) k/uL Comprehensive Metabolic Panel 04/29/22 Range/Units 09:25 Sodium 132 L (137-145) mmol/L Potassium 4.6 (3.5-5.1) mmol/L Chloride 105 (98-107) mmol/L Carbon Dioxide 17 L (22-30) mmol/L BUN 42 H (9-20) mg/dL Creatinine 2.03 H (0.66-1.25) mg/dL Glucose 377 H (74-99) mg/dL Calcium 8.4 (8.4-10.2) mg/dL AST 19 (17-59) U/L ALT 13 (4-49) U/L Alkaline Phosphatase 77 (38-126) U/L Total Protein 6.8 (6.3-8.2) g/dL Albumin 3.6 (3.5-5.0) g/dL Current Medications Generic Name Dose Route Start Last Admin Trade Name Freq PRN Reason Stop Dose Admin Albuterol Sulfate 2 puff 04/27/22 20:27 04/29/22 21:24 Albuterol Hfa Inhaler INHALATION 2 puff RT-Q6H PRN Administration Shortness Of Breath Aspirin 81 mg 04/28/22 09:00 04/29/22 09:08 Aspirin 81 Mg PO 81 mg DAILY ERNIE Administration Atenolol 50 mg 04/28/22 09:00 04/29/22 09:07 Atenolol 50 Mg Tab PO 50 mg DAILY ERNIE Administration Atorvastatin Calcium 40 mg 04/27/22 21:00 04/29/22 21:23 Atorvastatin 40 Mg Tab PO 40 mg HS ERNIE Administration Benzonatate 200 mg 04/27/22 13:38 04/29/22 05:15 Benzonatate 100 Mg Cap PO 200 mg TID PRN Administration Cough Clopidogrel Bisulfate 75 mg 04/27/22 17:30 04/29/22 09:07 Clopidogrel 75 Mg Tab PO 75 mg DAILY ERNIE Administration Gabapentin 100 mg 04/27/22 21:00 04/29/22 21:23 Gabapentin 100 Mg Cap PO 100 mg BID ERNIE Administration Guaifenesin 200 mg 04/29/22 05:55 04/30/22 06:29 Guaifenesin Syrup 100mg/5ml 200 Mg/10 Ml Cup PO 200 mg Q6HR PRN Administration Cough Heparin Sodium (Porcine) 5,000 unit 04/28/22 00:00 04/30/22 00:08 Heparin Sodium,Porcine/Pf 5,000 Unit/0.5 Ml Syringe SQ 5,000 unit Q8HR ERNIE Administration Sodium Chloride 1,000 mls @ 100 mls/hr 04/27/22 13:45 04/30/22 00:08 Saline 0.9% IV Not Given .Q10H ERNIE Insulin Aspart 0 unit 04/28/22 07:30 04/30/22 06:28 Insulin Aspart (Novolog) 100 Unit/Ml Vial SQ 4 unit ACHS ERNIE Administration Protocol Non-Formulary Medication 25 mg 04/28/22 09:00 04/29/22 09:08 Empagliflozin [Jardiance] PO Not Given DAILY ERNIE Pantoprazole Sodium 40 mg 04/28/22 07:30 04/30/22 06:25 Pantoprazole 40 Mg Tablet PO 40 mg AC-BRKFST ERNIE Administration Intake and Output 04/29/22 04/30/22 04/30/22 22:59 06:59 14:59 Intake Total 220 240 Balance 220 240 Intake: Oral 220 240 Other: Voiding Method Toilet Toilet # Voids 1 2 04/29/22 09:25 04/29/22 09:25
[2022-04-30 12:27] LABS: Basophils # (A) 0.1 k/uL (0-0.2); Basophils % (A) 1 %; Eosinophils # (A) 0.4 k/uL (0-0.7); Eosinophils % (A) 4 %; HGB 15.7 gm/dL (13.0-17.5); Lymphocytes # (A) 2.1 k/uL (1.0-4.8); Lymphocytes % (A) 18 %; MCH 29.3 pg (25.0-35.0); MCHC 32.8 g/dL (31.0-37.0); MCV 89.3 fL (80.0-100.0); Mean Platelet Volume 8.8; Monocytes # (A) 0.6 k/uL (0-1.0); Monocytes % (A) 5 %; Neutrophils # (A) 8.1 k/uL (1.3-7.7); Neutrophils % (A) 71 %; Platelet Count 136 k/uL (150-450); RBC 5.37 m/uL (4.30-5.90); RDW 13.7 % (11.5-15.5); WBC 11.4 k/uL (3.8-10.6)
--- NOTE | 2022-04-30 13:59 | P.PN ---
Subjective Progress Note Date: 04/30/22 Patient continues to have difficulty with particularly speech. However, he reports this is improving. Patient continues to be Covid positive. Patient has 2 strokes, one in the right frontotemporal region, left parietal temporal region. Cardiology consulted by neurology service for consideration of out patient ambulatory monitoring. Gen: awake, alert HEENT: normocephalic, atraumatic, good hearing acuity, moist mucous membranes Resp: good air exchange, breathing comfortably with no accessory muscle use, clear to auscultation bilaterally CVS: good distal perfusion x 4, regular rate and rhythm, no murmurs GI: soft, NTTP, ND : no SPT, no CVAT, blanca catheter not present MSK: no pitting edema, no clubbing Neuro: non-focal, moving all extremities Psych: cooperative, euthymic mood Assessment/plan: Acute CVA right frontal and left parietal Patient has expressive aphasia, patient presented out of window for TPA Patient was given full dose of aspirin Currently on baby aspirin and Plavix We'll check fasting lipid panel = LDL is 87.6, HDL 33.4; TSH = 0.53; hemoglobin A1c = 9.1 MRI consistent with stroke in the frontal region on the right echocardiogram = EF is 55-60%, no obvious regional wall motion abnormality, carotid ultrasound ordered = nonhemodynamically significant bilateral carotid artery stenosis, 25% Continue neuro checks cardiac telemetry We'll consult neurology, cardiology Outpatient ECG ambulatory monitoring Speech therapy consult Recent fall Unclear etiology, cannot exclude syncope See MRI echocardiogram carotid ultrasound as above PT/OT consult Hypertension Hold antihypertensive medication Allow permissive hypertension Resume antihypertensive medications as able Hyperlipidemia fasting lipid panel as above Continue statin Diabetes mellitus hemoglobin A1c as above Hold oral hypoglycemic Continues on sliding scale Will need tighter blood glucose control as an outpatient, we'll provide diet/exercise tips, however, likely will need to be initiated on insulin, defer to primary Right eye blindness Questionable history for cataract Unclear reason for postsurgical blindness Patient reported he didn't seek medical care for further evaluation Hopefully discharge in a 1day or 2 home Patient is full code DVT prophylaxis with heparin 3 times a day Objective - Vital Signs Vital signs: Vital Signs Temp 98.3 F 04/30/22 09:50 Pulse 76 04/30/22 09:50 Resp 16 04/30/22 09:50 BP 112/68 04/30/22 09:50 Pulse Ox 92 L 04/30/22 09:50 FiO2 Intake & Output 04/29/22 04/30/22 04/30/22 18:59 06:59 18:59 Intake Total 220 240 Balance 220 240 Weight 105.687 kg Intake: Oral 220 240 Other: Voiding Method Toilet Toilet # Voids 2 - Labs CBC & Chem 7: 04/30/22 09:57 04/29/22 09:25 Labs: Abnormal Lab Results - Last 24 Hours (Table) 04/29/22 04/29/22 04/30/22 Range/Units 16:57 20:24 05:41 WBC (3.8-10.6) k/uL Plt Count (150-450) k/uL Neutrophils # (1.3-7.7) k/uL D-Dimer (<0.60) mg/L FEU POC Glucose (mg/dL) 217 H 215 H 206 H (75-99) mg/dL 04/30/22 04/30/22 04/30/22 Range/Units 09:57 09:57 12:05 WBC 11.4 H (3.8-10.6) k/uL Plt Count 136 L (150-450) k/uL Neutrophils # 8.1 H (1.3-7.7) k/uL D-Dimer 5.69 H (<0.60) mg/L FEU POC Glucose (mg/dL) 211 H (75-99) mg/dL
--- NOTE | 2022-04-30 15:04 | P.PN ---
Subjective Progress Note Date: 04/30/22 Patient is seen at bedside and feels his speech is slightly better today compared to initial presentation. Denies of any new neurological issues. Objective - Vital Signs Vital signs: Vital Signs Temp 96.7 F L 04/30/22 13:40 Pulse 72 04/30/22 13:40 Resp 16 04/30/22 13:40 BP 121/72 04/30/22 13:40 Pulse Ox 95 04/30/22 13:40 FiO2 Intake & Output 04/29/22 04/30/22 04/30/22 18:59 06:59 18:59 Intake Total 220 240 Output Total 350 Balance 220 -110 Weight 105.687 kg Intake: Oral 220 240 Output: Urine 350 Other: Voiding Method Toilet Toilet # Voids 2 - Exam GENERAL: The patient is lying in bed and is not in acute distress. NEUROLOGICAL: Higher mental function: The patient is awake, alert, oriented to self, place and time. Patient is following commands. Has moderate amount of expressive aphasia. No neglect. Cranial nerves: The left pupil is round, reactive to light. Right pupil is gaze grayish discoloration. Visual russell is full to confrontation on left. Blind over the right eye. Extraocular movement is intact no nystagmus is noted. Facial sensation is normal to touch throughout. The facial strength is normal throughout. Hearing is moderately decreased bilaterally to hand rub. Tongue is midline and moved [id number] without any difficulty. No dysarthria is noted. Shoulder shrug is normal bilaterally. Motor: Gait is deferred. The strength is left upper extremity is 4+ but no drift. Lowers are 4+ (stated old). Right upper is 5/5. Normal tone and bulk. Cerebellum: Normal finger to nose bilaterally. Sensation: Sensation is normal to touch throughout. Reflexes (right/left): 1+ throughout. Plantars are downgoing bilaterally. Some workup during this admission consisted of: Yusuf virus PCR is detected on 04/27/2022 and there is another one it is stated as presumptive positive TSH is 0.530 HbA1c: 9.1 Lipid panel: Triglyceride of 280, cholesterol of 177, LDL of 87 and HDL of 33. CT of the head is reported as suspected acute right middle frontal gyrus cortical and subcortical acute infarct without significant hemorrhagic transformation. Possible hyperdense right MCA versus artifact. I personally reviewed the CT of the head and I agree regarding the the infarct. Regarding the possible hyperdense right MCA I russell more artifact. Carotid duplex is reported as there is antegrade flow in the vertebral arteries. Images and measurements suggest less than 25% stenosis of both internal carotid arteries. 2-D echo was reported as suboptimal study. Normal left ventricular size and function. Grossly normal valvular function. Left atrium is normal in size. MR the brain is reported as there is evidence of acute cortical right posterior frontal lobe infarct. Multiple tiny white matter high signal foci likely related to microvascular ischemia. I personally reviewed the MRI and feel the patient has acute small right frontal cortical infarct as well as very small left occipital stroke. I reviewed the images with Dr. Emanuel (reading r adiologist) and agrees. MRI lumbar spine is reported as spondylitic changes in the lower on BuSpar. No fracture. No spinal stenosis. - Labs CBC & Chem 7: 04/30/22 09:57 04/29/22 09:25 Labs: Abnormal Lab Results - Last 24 Hours (Table) 04/29/22 04/29/22 04/30/22 Range/Units 16:57 20:24 05:41 WBC (3.8-10.6) k/uL Plt Count (150-450) k/uL Neutrophils # (1.3-7.7) k/uL D-Dimer (<0.60) mg/L FEU POC Glucose (mg/dL) 217 H 215 H 206 H (75-99) mg/dL 04/30/22 04/30/22 04/30/22 Range/Units 09:57 09:57 12:05 WBC 11.4 H (3.8-10.6) k/uL Plt Count 136 L (150-450) k/uL Neutrophils # 8.1 H (1.3-7.7) k/uL D-Dimer 5.69 H (<0.60) mg/L FEU POC Glucose (mg/dL) 211 H (75-99) mg/dL Assessment and Plan Assessment: Acute CVA (right frontal and very small left occpital) Presented with expressive aphasia and on examination felt has left upper extremity weakness). Stroke is cryptogenic. COVID does increases risk of stroke but need to rule out cardioembolic (A-fib/flutter). Acute COVID-19 infection Fall about 3 weeks ago: Unsure cause. Diabetes mellitus and on presentation his sugar level is in 300's. Right eye implant and is blind Migraine Hypertension Plan: * MR the brain is reported as there is evidence of acute cortical right posterior frontal lobe infarct. Multiple tiny white matter high signal foci likely related to microvascular ischemia. I personally reviewed the MRI and feel the patient has acute small right frontal cortical infarct as well as very small left occipital stroke. I reviewed the images with Dr. Emanuel (reading radiologist) and agrees. * Currently on aspirin 81 mg and Plavix 75mg daily (was taking ASA PRN at home). Consulted cardiology team for embolic for stroke and event monitor. They recommended Eliquis in addition to a single antiplatelet preferably Plavix. * From a neurology perspective upon reviewing the literature, Stroke care gu idecj have not modified recommendation on anticoagulation use in COVID-19 stroke. * Will discuss this with patient and his regarding use of anticoagulation before starting it. But if cardiology feels the use of anticoagulation is necessarily then then will defer to them. * Recommend to pursue with an event monitor for 30 days to rule out undetected atrial fibrillation/flutter. * Continue Lipitor 40 mg daily at bedtime. * PT OT and DRIVER are consulted * Continue neuro checks * Cardiac monitoring * We'll defer the rest of the medical management to primary team * For DVT prophylaxis the patient is on subcu heparin 5000 units every 8 hours The plan was discussed with the patient, primary team and his nurse. Sachin Moore M.D. Neuro-hospitalist Time with Patient: Less than 30
[2022-04-30 16:19] LABS: Glucose,Whole Blood 187 mg/dL (75-99)
[2022-04-30] MEDS: ALBUTEROL HFA INHALER INHALATION PRN (16:21)
[2022-04-30 19:36] LABS: Glucose,Whole Blood 195 mg/dL (75-99)
[2022-04-30] MEDS: ATORVASTATIN 40 MG TAB PO SCH (20:13)
[2022-04-30] MEDS: BENZONATATE 100 MG CAP PO PRN (20:13)
[2022-05-01] MEDS: guaiFENesin SYRUP 100MG/5ML 200 MG/10 ML CUP PO PRN ×2 (02:20→10:15)
[2022-05-01] MEDS: BENZONATATE 100 MG CAP PO PRN ×2 (04:25→13:33)
[2022-05-01 06:17] LABS: Glucose,Whole Blood 193 mg/dL (75-99)
[2022-05-01] MEDS: SODIUM CHLORIDE 0.9% 1,000 ML IV SCH (06:19)
[2022-05-01] MEDS: INSULIN ASPART (NovoLOG) 100 UNIT/ML VIAL SQ SCH ×2 (06:19→13:33)
[2022-05-01] MEDS: PANTOPRAZOLE 40 MG TABLET PO SCH (06:21)
[2022-05-01] MEDS: ALBUTEROL HFA INHALER INHALATION PRN (07:51)
[2022-05-01] MEDS ORDERED: APIXABAN 5 MG TAB PO SCH (09:30)
--- NOTE | 2022-05-01 09:56 | P.PN ---
Subjective Progress Note Date: 05/01/22 The patient is seen at bedside and feels he is doing about the same and denies any other new neurological issues. He feels he is about the same. Objective - Vital Signs Vital signs: Vital Signs Temp 98.0 F 05/01/22 04:00 Pulse 79 05/01/22 04:00 Resp 14 05/01/22 04:00 BP 129/66 05/01/22 04:00 Pulse Ox 95 05/01/22 04:00 FiO2 Intake & Output 04/30/22 05/01/22 05/01/22 18:59 06:59 18:59 Intake Total 240 540 240 Output Total 350 Balance -110 540 240 Intake: Oral 240 540 240 Output: Urine 350 Other: Voiding Method Toilet Urinal # Voids 2 - Exam GENERAL: The patient is lying in bed and is not in acute distress. NEUROLOGICAL: Higher mental function: The patient is awake, alert, oriented to self, place and time. Patient is following commands. Has moderate amount of expressive aphasia. No neglect. Cranial nerves: The left pupil is round, reactive to light. Right pupil is gaze grayish discoloration. Visual russell is full to confrontation on left. Blind over the right eye. Extraocular movement is intact no nystagmus is noted. Facial sensation is normal to touch throughout. The facial strength is normal throughout. Hearing is moderately decreased bilaterally to hand rub. Tongue is midline and moved [id number] without any difficulty. No dysarthria is noted. Shoulder shrug is normal bilaterally. Motor: Gait is deferred. The strength is left upper extremity is 4+ but no drift. Lowers are 4+ (stated old). Right upper is 5/5. Normal tone and bulk. Cerebellum: Normal finger to nose bilaterally. Sensation: Sensation is normal to touch throughout. Reflexes (right/left): 1+ throughout. Plantars are downgoing bilaterally. Some workup during this admission consisted of: Yusuf virus PCR is detected on 04/27/2022 and there is another one it is stated as presumptive positive TSH is 0.530 HbA1c: 9.1 Lipid panel: Triglyceride of 280, cholesterol of 177, LDL of 87 and HDL of 33. CT of the head is reported as suspected acute right middle frontal gyrus cortica l and subcortical acute infarct without significant hemorrhagic transformation. Possible hyperdense right MCA versus artifact. I personally reviewed the CT of the head and I agree regarding the the infarct. Regarding the possible hyperdense right MCA I russell more artifact. Carotid duplex is reported as there is antegrade flow in the vertebral arteries. Images and measurements suggest less than 25% stenosis of both internal carotid arteries. 2-D echo was reported as suboptimal study. Normal left ventricular size and function. Grossly normal valvular function. Left atrium is normal in size. MR the brain is reported as there is evidence of acute cortical right posterior frontal lobe infarct. Multiple tiny white matter high signal foci likely related to microvascular ischemia. I personally reviewed the MRI and feel the patient has acute small right frontal cortical infarct as well as very small left occipital stroke. I reviewed the images with Dr. Emanuel (reading radiologist) and agrees. MRI lumbar spine is reported as spondylitic changes in the lower on BuSpar. No fracture. No spinal stenosis. - Labs CBC & Chem 7: 05/01/22 11:28 04/29/22 09:25 Labs: Abnormal Lab Results - Last 24 Hours (Table) 04/30/22 04/30/22 04/30/22 Range/Units 09:57 09:57 12:05 WBC 11.4 H (3.8-10.6) k/uL Plt Count 136 L (150-450) k/uL Neutrophils # 8.1 H (1.3-7.7) k/uL D-Dimer 5.69 H (<0.60) mg/L FEU POC Glucose (mg/dL) 211 H (75-99) mg/dL 04/30/22 04/30/22 05/01/22 Range/Units 16:18 19:34 06:15 WBC (3.8-10.6) k/uL Plt Count (150-450) k/uL Neutrophils # (1.3-7.7) k/uL D-Dimer (<0.60) mg/L FEU POC Glucose (mg/dL) 187 H 195 H 193 H (75-99) mg/dL Assessment and Plan Assessment: Acute CVA (right frontal and very small left occpital) Presented with expressive aphasia and on examination felt has left upper extremity weakness). Stroke is cryptogenic. COVID does increases risk of stroke but need to rule out cardioembolic (A-fib/flutter). Acute COVID-19 infection Fall about 3 weeks ago: Unsure cause. Diabetes mellitus and on presentation his sugar level is in 300's. Right eye implant and is blind Migraine Hypertension Plan: * MR the brain is reported as there is evidence of acute cortical right posterior frontal lobe infarct. Multiple tiny white matter high signal foci likely related to microvascular ischemia. I personally reviewed the MRI and feel the patient has acute small right frontal cortical infarct as well as very small left occipital stroke. I reviewed the images with Dr. Emanuel (reading radiologist) and agrees. * Currently on aspirin 81 mg and Plavix 75mg daily (was taking ASA PRN at home). Continues dual antiplatelets for 21 days and after that stop Plavix but continue ASA. Consulted cardiology team for embolic for stroke and event monitor. They recommended Eliquis in addition to a single antiplatelet preferably Plavix. From a neurology perspective upon reviewing the literature, Stroke care guideline have no set recommendation on anticoagulation use in COVID-19 stroke. But if cardiology feels the use of anticoagulation is necessarily then then will defer to them. * Discussed with patient and he stated to discuss with . Discussed with and updated her. I notified her that will defer final decision to cardiology and primary team. * Recommend to pursue with an event monitor for 30 days to rule out undetected a trial fibrillation/flutter. * Continue Lipitor 40 mg daily at bedtime. * PT OT and BRAND REPRESENTATIVE are consulted * Continue neuro checks * Cardiac monitoring: No atrial fibrillation or flutter. * We'll defer the rest of the medical management to primary team * For DVT prophylaxis the patient is on subcu heparin 5000 units every 8 hours * Recommend patient to follow-up with neurologist as outpatient within 1-2 weeks. The plan was discussed with the patient, his , primary team and his nurse. Patient is clear for discharge from neurological perspective. Sachin Moore M.D. Neuro-hospitalist Time with Patient: Less than 30
[2022-05-01] MEDS: atenoloL 50 MG TAB PO SCH (10:15)
[2022-05-01] MEDS: CLOPIDOGREL 75 MG TAB PO SCH (10:15)
[2022-05-01] MEDS: GABAPENTIN 100 MG CAP PO SCH (10:15)
[2022-05-01 11:20] VITALS: BP 112/73; PULSE 96; RESP 16; TEMP 98.5
[2022-05-01 11:44] LABS: Glucose,Whole Blood 234 mg/dL (75-99)
[2022-05-01 12:30] LABS: Basophils # (A) 0.1 k/uL (0-0.2); Basophils % (A) 1 %; Eosinophils # (A) 0.3 k/uL (0-0.7); Eosinophils % (A) 3 %; HCT 48.3 % (39.0-53.0); Lymphocytes # (A) 2.2 k/uL (1.0-4.8); Lymphocytes % (A) 21 %; MCH 29.2 pg (25.0-35.0); MCV 88.4 fL (80.0-100.0); Monocytes # (A) 0.6 k/uL (0-1.0); Monocytes % (A) 6 %; Neutrophils # (A) 7.3 k/uL (1.3-7.7); Neutrophils % (A) 68 %; Platelet Count 157 k/uL (150-450); RBC 5.46 m/uL (4.30-5.90); RDW 13.6 % (11.5-15.5); WBC 10.7 k/uL (3.8-10.6)
[2022-05-01 12:46] LABS: INR 1.1 (<1.2); Prothrombin Time 11.9 sec (9.0-12.0)
[2022-05-01] MEDS ORDERED: ACETAMINOPHEN TAB 500 MG TAB PO STA (13:32)
--- NOTE | 2022-05-01 13:44 | P.DS ---
Providers Date of admission: 04/27/22 13:36 Expected date of discharge: 05/01/22 Attending physician: Audra Pearson, Consults: 04/27/22 13:36 Consult Physician Routine Consulting Provider: Sachin Moore Consult Reason/Comments: CVA Do you want consulting provider notified?: Yes 04/30/22 08:11 Consult Physician Routine Consulting Provider: Sage Boswell Consult Reason/Comments: embolic CVA, event monitor Do you want consulting provider notified?: Yes Primary care physician: 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 In the emergency room, patient was afebrile, 130/74, heart rate 69, 95% on room air. CBC demonstrate a mild leukocytosis of 11.9, otherwise unremarkable. Chemistries show mild hyponatremia to 134, bicarb of 18, BUN/creatinine of 47/1.97. LFTs unremarkable. Initial troponin was negative. TSH was 0.53. UA shows 4+ glucose, otherwise unremarkable. Covid was presumptive positive. Patient was thoroughly evaluated for stroke while he was hospitalized, underwent neurology consultation who recommended carotid Doppler, echocardiogram, brain MRI. Initial brain CT demonstrated right posterior frontal stroke, confirmed on the MRI which also showed left parietal stroke concerning for embolic in etiology. Carotid Doppler showed 25% bilateral ICA stenosis. Echocardiogram showed ejection fraction 55-60% without obvious regional wall motion abnormality. Risk factors were checked and demonstrated LDL of 87.6, HDL of 33.4, TSH of 0.53, hemoglobin and A1c of 9.1. Given patient's COVID-19 status as well as MRI concerning for embolic etiology of stroke, patient was started on blood thinner, Apixiban. Patient was also continued on Plavix. Patient was discharged with plan to have 30 day event monitor. Should he develop atrial fibrillation, was counseled that patient should follow-up with cardiology to exchange Apixiban for Coumadin due to affordability issues; should he go 30 days without atrial fibrillation, he may drop off the Apixiban and continue on aspirin or Plavix alone per neurology recommendation in the outpatient setting. Patient was extensively counseled on this, so was his . Patient was also set up with home care services for home PT/OT/speech therapy. Otherwise, patient was advised to discontinue hydrochlorothiazide as well as prednisone. I spent 40 minutes coordinating this complex discharge, discharge date is 05/01. Gen: awake, alert HEENT: normocephalic, atraumatic, good hearing acuity, moist mucous membranes Resp: good air exchange, breathing comfortably with no accessory muscle use, clear to auscultation bilaterally CVS: good distal perfusion x 4, regular rate and rhythm, no murmurs GI: soft, NTTP, ND : no SPT, no CVAT, blanca catheter not present MSK: no pitting edema, no clubbing Neuro: non-focal, moving all extremities Psych: cooperative, euthymic mood Patient Condition at Discharge: Good Plan - Discharge Summary Discharge Rx Participant: No New Discharge Prescriptions: New Apixaban [Eliquis] 5 mg PO BID #60 tab Clopidogrel [Plavix] 75 mg PO DAILY #30 tab Continue Omeprazole [PriLOSEC] 20 mg PO AC-BRKFST Gabapentin [Neurontin] 100 mg PO BID atenoloL [Tenormin] 50 mg PO DAILY Alogliptin Benzoate [Alogliptin] 25 mg PO DAILY Simvastatin [Zocor] 10 mg PO HS Lidocaine 5% Patch [Lidoderm 5% Patch] 1 patch TOPICAL DAILY PRN PRN Reason: Pain Albuterol Nebulized [Ventolin Nebulized] 2.5 mg INHALATION RT-Q6H PRN PRN Reason: Shortness Of Breath Benzonatate [Tessalon Perle] 200 mg PO TID PRN PRN Reason: Cough Losartan [Cozaar] 50 mg PO DAILY Empagliflozin [Jardiance] 25 mg PO DAILY glipiZIDE [Glucotrol] 20 mg PO BID Discontinued Hydrochlorothiazide [hydroCHLOROthiazide] 12.5 mg PO DAILY Amoxic-Pot Clav 875-125Mg [Augmentin 875-125] 1 tab PO Q12HR predniSONE 50 mg PO DAILY Discharge Medication List Gabapentin [Neurontin] 100 mg PO BID 12/28/17 [History] Omeprazole [PriLOSEC] 20 mg PO AC-BRKFST 12/28/17 [History] atenoloL [Tenormin] 50 mg PO DAILY 12/28/17 [History] Alogliptin Benzoate [Alogliptin] 25 mg PO DAILY 03/20/19 [History] Losartan [Cozaar] 50 mg PO DAILY 12/19/21 [History] Albuterol Nebulized [Ventolin Nebulized] 2.5 mg INHALATION RT-Q6H PRN 04/27/22 [History] Benzonatate [Tessalon Perle] 200 mg PO TID PRN 04/27/22 [History] Empagliflozin [Jardiance] 25 mg PO DAILY 04/27/22 [History] Lidocaine 5% Patch [Lidoderm 5% Patch] 1 patch TOPICAL DAILY PRN 04/27/22 [Hist ory] Simvastatin [Zocor] 10 mg PO HS 04/27/22 [History] glipiZIDE [Glucotrol] 20 mg PO BID 04/27/22 [History] Apixaban [Eliquis] 5 mg PO BID #60 tab 05/01/22 [Rx] Clopidogrel [Plavix] 75 mg PO DAILY #30 tab 05/01/22 [Rx] Follow up Appointment(s)/Ref[facility] - Vj Sesay MD [STAFF PHYSICIAN] - 06/04/22 9:30 am [facility],Clinic [Primary Care Provider] - 1-2 days (Office to call back with appointment date and time.) Patient Instructions/Handouts: Ischemic Stroke (DC), COVID-19 (Coronavirus Disease 2019) (DC) Discharge Disposition: HOME WITH HOME HEALTH SERVICES
== END 2022-05-01 15:42 | disposition home health service (06) | DRG 64 ==
LOC: EC 10:54 → 3SCARD 13:36
PROVIDERS: ADMIT Internal Medicine; ATTEND Internal Medicine
DX: I63.40 Cerebral infarction due to embolism of unspecified cerebral artery (principal); U07.1 COVID-19; N17.9 Acute kidney failure, unspecified; E87.1 Hypo-osmolality and hyponatremia; D68.59 Other primary thrombophilia; I65.23 Occlusion and stenosis of bilateral carotid arteries; J45.909 Unspecified asthma, uncomplicated; J84.89 Other specified interstitial pulmonary diseases; R47.01 Aphasia; G43.909 Migraine, unspecified, not intractable, without status migrainosus; H54.61 Unqualified visual loss, right eye, normal vision left eye; E11.65 Type 2 diabetes mellitus with hyperglycemia; E78.5 Hyperlipidemia, unspecified; Z98.41 Cataract extraction status, right eye; Z96.1 Presence of intraocular lens; I10 Essential (primary) hypertension; M10.9 Gout, unspecified; R47.81 Slurred speech; Z28.310 Unvaccinated for COVID-19; Z28.21 Immunization not carried out because of patient refusal; M19.90 Unspecified osteoarthritis, unspecified site; K21.9 Gastro-esophageal reflux disease without esophagitis; R29.702 NIHSS score 2; I25.10 Atherosclerotic heart disease of native coronary artery without angina pectoris; I25.2 Old myocardial infarction; Z91.81 History of falling; Z90.89 Acquired absence of other organs; E11.9 Type 2 diabetes mellitus without complications; Z79.84 Long term (current) use of oral hypoglycemic drugs; Z79.02 Long term (current) use of antithrombotics/antiplatelets; Z79.82 Long term (current) use of aspirin; Z79.899 Other long term (current) drug therapy; Z83.3 Family history of diabetes mellitus; Z86.73 Personal history of transient ischemic attack (TIA), and cerebral infarction without residual deficits; Z87.891 Personal history of nicotine dependence
CPT/HCPCS: 36415; 70450; 70551; 71046; 72148; 76770; 80048; 80053; 80061; 81003; 83036; 83735; 84443; 84484; 85025; 85379; 85610; 85730; 87502; 87635; 93005; 93270; 93306; 93880; 94640; 96360; 96361; 99291

== ENCOUNTER → 2022-11-18 | Outpatient (CLI) | payer OTHER ==
--- NOTE | 2022-11-18 16:36 | CT ---
EXAMINATION TYPE: CT chest wo con DATE OF EXAM: 11/18/2022 COMPARISON: None HISTORY: chronic cough CT DLP: 707 mGycm, Automated exposure control for dose reduction was used. CONTRAST: Performed injected with 0 mL of Isovue 300. TECHNIQUE: Axial images were obtained at 5 mm thick sections. Reconstructed images are reviewed on [employer] computer in the coronal plane. FINDINGS: Portion of the thyroid visualized is normal. No suspicious lung nodules or focal infiltrates are present. Pulmonary fibrosis is at the posterior l wanda bases. Emphysematous changes present. There are enlarged lymph nodes in the pretracheal space measuring 1.2 cm in transverse dimension. Th e ascending aorta diameter at the level of the main pulmonary artery is 4.0 cm. The main pulmonary a rtery diameter at the bifurcation is 2.6 cm. Moderate coronary artery calcification is present. Limited CT sections are obtained through the upper abdomen. Abdomen is essentially unremarkable. IMPRESSIONS: 1. Chronic appearing pulmonary fibrosis and emphysematous changes. 2. Enlarged mediastinal adenopathy of uncertain etiology. 3. Ascending thoracic aortic aneurysm.
== END | disposition home or self-care (01) ==
LOC: RADCTMAIN 11:11
DX: J84.10 Pulmonary fibrosis, unspecified (principal); J43.9 Emphysema, unspecified; I71.21 Aneurysm of the ascending aorta, without rupture; R59.0 Localized enlarged lymph nodes
CPT/HCPCS: 71250

== ENCOUNTER 2023-03-01 23:06 | Emergency (ER) | payer OTHER ==
[2023-03-01 23:22] VITALS: RESP 18; TEMP 97.4
[2023-03-01 23:23] LABS: Glucose,Whole Blood 240 mg/dL (70-110)
[2023-03-02 00:35] LABS: Basophils % (A) 0 %; Eosinophils # (A) 0.2 k/uL (0-0.7); Eosinophils % (A) 2 %; HCT 48.9 % (39.0-53.0); HGB 16.5 gm/dL (13.0-17.5); Lymphocytes # (A) 1.7 k/uL (1.0-4.8); Lymphocytes % (A) 15 %; MCH 28.6 pg (25.0-35.0); MCHC 33.7 g/dL (31.0-37.0); MCV 84.9 fL (80.0-100.0); Mean Platelet Volume 8.4; Monocytes # (A) 0.5 k/uL (0-1.0); Monocytes % (A) 5 %; Neutrophils # (A) 8.8 k/uL (1.3-7.7); Neutrophils % (A) 78 %; Platelet Count 114 k/uL (150-450); RBC 5.76 m/uL (4.30-5.90); RDW 13.9 % (11.5-15.5); WBC 11.4 k/uL (3.8-10.6)
[2023-03-02 00:48] LABS: Albumin 3.9 g/dL (3.5-5.0); Calcium 9.1 mg/dL (8.4-10.2); Potassium 4.6 mmol/L (3.5-5.1); Total Bilirubin 0.7 mg/dL (0.2-1.3); Total Protein 6.6 g/dL (6.3-8.2)
--- NOTE | 2023-03-02 01:11 | ED ---
General Adult HPI - General Chief complaint: Recheck/Abnormal Lab/Rx Stated complaint: High Blood Sugar Time Seen by Provider: 03/02/23 00:34 Source: patient, family, RN notes reviewed, old records reviewed Mode of arrival: wheelchair - History of Present Illness Initial comments: 77-year-old male presents with chief complaint of abnormal blood glucose. Patient had outpatient laboratory testing performed today and they had contacted them stating that his blood sugar was over 500. They requested that he presented to the emergency department for evaluation. The patient states did admitting to eating 2 pieces of the zucchini bread just prior to the blood draw. He did not know that he was going to have his blood drawn. He has no complaints time my evaluation. Patient is also currently on high-dose steroids for pulmonary fibrosis. - Related Data Home Medications Medication Instructions Recorded Confirmed Gabapentin [Neurontin] 100 mg PO BID 12/28/17 04/27/22 Omeprazole [PriLOSEC] 20 mg PO AC-BRKFST 12/28/17 04/27/22 atenoloL [Tenormin] 50 mg PO DAILY 12/28/17 04/27/22 Alogliptin Benzoate [Alogliptin] 25 mg PO DAILY 03/20/19 04/27/22 Losartan [Cozaar] 50 mg PO DAILY 12/19/21 04/27/22 Albuterol Nebulized [Ventolin 2.5 mg INHALATION RT-Q6H PRN 04/27/22 04/27/22 Nebulized] Benzonatate [Tessalon Perle] 200 mg PO TID PRN 04/27/22 04/27/22 Empagliflozin [Jardiance] 25 mg PO DAILY 04/27/22 04/27/22 Lidocaine 5% Patch [Lidoderm 5% 1 patch TOPICAL DAILY PRN 04/27/22 04/27/22 Patch] Simvastatin [Zocor] 10 mg PO HS 04/27/22 04/27/22 glipiZIDE [Glucotrol] 20 mg PO BID 04/27/22 04/27/22 Previous Rx's Medication Instructions Recorded Apixaban [Eliquis] 5 mg PO BID #60 tab 05/01/22 Clopidogrel [Plavix] 75 mg PO DAILY #30 tab 05/01/22 Allergies Allergy/AdvReac Type Severity Reaction Status Date / Time No Known Allergies Allergy Verified 03/01/23 23:22 Review of Systems ROS Statement: Those systems with pertinent positive or pertinent negative responses have been documented in the HPI. ROS Other: All systems not noted in ROS Statement are negative. Past Medical History Past Medical History: CVA/TIA, Diabetes Mellitus, GERD/Reflux, Hyperlipidemia, Hypertension, Osteoarthritis (OA) Additional Past Medical History / Comment(s): hx migraines yrs ago, gout, History of Any Multi-Drug Resistant Organisms: None Reported Past Surgical History: Tonsillectomy Additional Past Surgical History / Comment(s): lens implant rt eye Past Anesthesia/Blood Transfusion Reactions: No Reported Reaction Past Psychological History: No Psychological Hx Reported Past Alcohol Use History: None Reported Past Drug Use History: None Reported - Past Family History Mother Family Medical History: Cancer Father Family Medical History: Diabetes Mellitus General Exam General appearance: alert, in no apparent distress Head exam: Present: atraumatic, normocephalic ENT exam: Present: normal exam Neck exam: Present: normal inspection. Absent: tenderness, meningismus Respiratory exam: Present: decreased breath sounds. Absent: respiratory distress, wheezes Cardiovascular Exam: Present: regular rate, normal rhythm GI/Abdominal exam: Present: soft. Absent: distended, tenderness, guarding Extremities exam: Present: normal inspection, normal capillary refill. Absent: pedal edema Course Vital Signs 03/01/23 23:16 Temperature 97.4 F L Pulse Rate 66 Respiratory 18 Rate Blood Pressure 153/81 O2 Sat by Pulse 92 L Oximetry Medical Decision Making - Medical Decision Making Was pt. sent in by a medical professional or institution (, PA, [employer] OWNER, urgent care, hospital, or penitentiary...) When possible be specific @ -No Did you speak to anyone other than the patient for history (EMS, parent, family, police, friend...)? What history was obtained from this source @ -Patient's family member who is at bedside Did you review nursing and triage notes (agree or disagree)? Why? @ -I reviewed and agree with nursing and triage notes Were old charts reviewed (outside hosp., previous admission, EMS record, old EKG, old radiological studies, urgent care reports/EKG's, penitentiary records)? Report findings @ -No old charts were reviewed Differential Diagnosis (chest pain, altered mental status, abdominal pain women, abdominal pain men, vaginal bleeding, weakness, fever, dyspnea, syncope, headache, dizziness, GI bleed, back pain, seizure, CVA, palpatations, mental health, musculoskeletal)? @ -not applicable EKG interpreted by me (3pts min.). @ -, Hyperglycemia, DKA X-rays interpreted by me (1pt min.). @ -None done CT interpreted by me (1pt min.). @ -None done U/S interpreted by me (1pt. min.). @ -None done What testing was considered but not performed or refused? (CT, X-rays, U/S, labs)? Why? @ -None What meds were considered but not given or refused? Why? @ -None Did you discuss the management of the patient with other professionals (professionals i.e. , PA, [employer]NER, lab, RT, psych nurse, social media analyst, cyber intel planner, teacher, combat systems officer, director case)? Give summary @ -No Was smoking cessation discussed for >3mins.? @ -No Was critical care preformed (if so, how long)? @ -No Were there social determinants of health that impacted care today? How? (Homelessness, low income, unemployed, alcoholism, drug addiction, transportation, low edu. Level, literacy, decrease access to med. care, custodial, rehab)? @ -No Was there de-escalation of care discussed even if they declined (Discuss DNR or withdrawal of care, Hospice)? DNR status @ -No What co-morbidities impacted this encounter? (DM, HTN, Smoking, COPD, CAD, Cancer, CVA, ARF, Chemo, Hep., AIDS, mental health diagnosis, sleep apnea, morbid obesity)? @ -Diabetes Was patient admitted / discharged? Hospital course, mention meds given and route, prescriptions, significant lab abnormalities, going to OR and other pertinent info. @ -77-year-old male with elevated blood sugar. Patient is on steroids and admits to eating a high carbohydrate meal just prior to the blood draw. His repeat blood glucose is in the mid 200s. There is no signs of DKA laboratory testing. Patient has no complaints. He will monitor blood glucose at home. He will continue with his diabetic agents and follow-up with his primary care physician. Undiagnosed new problem with uncertain prognosis? @ -No Drug Therapy requiring intensive monitoring for toxicity (Heparin, Nitro, Insulin, Cardizem)? @ -No Were any procedures done? @ -No Diagnosis/symptom? @ -Hyperglycemia Acute, or Chronic, or Acute on Chronic? @ -Acute Uncomplicated (without systemic symptoms) or Complicated (systemic symptoms)? @ -[Complicated Side effects of treatment? @ -No Exacerbation, Progression, or Severe Exacerbation? @ -No Poses a threat to life or bodily function? How? (Chest pain, USA, VT, pneumonia, PE, COPD, DKA, ARF, appy, cholecystitis, CVA, Diverticulitis, Homicidal, Suicidal, threat to staff... and all critical care pts) @ -No - Lab Data Result diagrams: 03/02/23 00:15 03/02/23 00:15 Lab Results 03/01/23 03/02/23 03/02/23 Range/Units 23:20 00:15 00:15 WBC 11.4 H (3.8-10.6) k/uL RBC 5.76 (4.30-5.90) m/uL Hgb 16.5 (13.0-17.5) gm/dL Hct 48.9 (39.0-53.0) % MCV 84.9 (80.0-100.0) fL MCH 28.6 (25.0-35.0) pg MCHC 33.7 (31.0-37.0) g/dL RDW 13.9 (11.5-15.5) % Plt Count 114 L (150-450) k/uL MPV 8.4 Neutrophils % 78 % Lymphocytes % 15 % Monocytes % 5 % Eosinophils % 2 % Basophils % 0 % Neutrophils # 8.8 H (1.3-7.7) k/uL Lymphocytes # 1.7 (1.0-4.8) k/uL Monocytes # 0.5 (0-1.0) k/uL Eosinophils # 0.2 (0-0.7) k/uL Basophils # 0.0 (0-0.2) k/uL Sodium 137 (137-145) mmol/L Potassium 4.6 (3.5-5.1) mmol/L Chloride 105 (98-107) mmol/L Carbon Dioxide 24 (22-30) mmol/L Anion Gap 8 mmol/L BUN 30 H (9-20) mg/dL Creatinine 1.01 (0.66-1.25) mg/dL Est GFR (CKD-EPI)AfAm 84 (>60 ml/min/1.73 sqM) Est GFR (CKD-EPI)NonAf 73 (>60 ml/min/1.73 sqM) Glucose 242 H (74-99) mg/dL POC Glucose (mg/dL) 240 H (70-110) mg/dL POC Glu Dump Truck Driver Off [address] ID Fannie Batista Calcium 9.1 (8.4-10.2) mg/dL Magnesium 2.0 (1.6-2.3) mg/dL Total Bilirubin 0.7 (0.2-1.3) mg/dL AST 17 (17-59) U/L ALT 21 (4-49) U/L Alkaline Phosphatase 58 (38-126) U/L Total Protein 6.6 (6.3-8.2) g/dL Albumin 3.9 (3.5-5.0) g/dL Disposition Clinical Impression: Hyperglycemia Disposition: HOME SELF-CARE Condition: Fair Instructions (If sedation given, give patient instructions): Diabetic Hyperglycemia (ED) Is patient prescribed a controlled substance at d/c from ED?: No Referrals: [facility],Clinic [Primary Care Provider] - 1-2 days Time of Disposition: 01:11
[2023-03-02 01:39] VITALS: BP 116/56; PULSE 68
== END 2023-03-02 01:38 | disposition home or self-care (01) ==
LOC: EC 23:06
DX: E11.65 Type 2 diabetes mellitus with hyperglycemia (principal); I10 Essential (primary) hypertension; E78.5 Hyperlipidemia, unspecified; K21.9 Gastro-esophageal reflux disease without esophagitis; M19.90 Unspecified osteoarthritis, unspecified site; Z79.01 Long term (current) use of anticoagulants; Z79.02 Long term (current) use of antithrombotics/antiplatelets; Z79.84 Long term (current) use of oral hypoglycemic drugs; Z79.899 Other long term (current) drug therapy
CPT/HCPCS: 36415; 80053; 83735; 85025; 99283

== ENCOUNTER → 2024-04-11 | Outpatient (CLI) | payer OTHER ==
--- NOTE | 2024-04-11 17:02 | CT ---
EXAMINATION TYPE: CT brain wo con CT DLP: 1133.3 mGycm, Automated exposure control for dose reduction was used. DATE OF EXAM: 04/11/2024 4:05 PM COMPARISON: CT head 04/23/2022, MR brain 04/29/2022. CLINICAL INDICATION:Male, 78 years old with history of S06.0X0S CONCUSSION WO LOSS OF CONSC Z92.29 HX DAMIEN, ams, confusion TECHNIQUE: Brain: Axial CT images of the brain were obtained with coronal and sagittal reformats created and rev iewed. Contrast used: None. Oral contrast used: None. FINDINGS: Extra-axial spaces: No abnormal extra-axial fluid collections. Basilar cisterns are patent. Ventricular system: Ventricles appear dilated in proportion to the degree of cerebral atrophy. Cerebral parenchyma: No increased attenuation to suggest acute intraparenchymal hemorrhage. The gra y-white matter interface appears maintained. Moderate generalized brain atrophy. Scattered hypoatte nuating areas are seen within the cerebral white matter, nonspecific but most often seen with chronic microvascular ischemic changes; moderate in degree. Remote small infarct posterior right frontal lob e. Cerebellum: No acute abnormality. Mass effect: No evidence of mass effect or midline shift. Intracranial vasculature: Atherosclerotic calcifications of the larger arteries near the skull base. Soft tissues: No acute or concerning abnormality. Visualized orbits: Orbital contents appear grossly intact. There has likely been prior lens surgery on the right. Calvarium/osseous structures: No evidence of calvarial fracture. There is nasal septal deviation towa rds the right with small/moderate sized osseous spur in its midportion. Paranasal sinuses and mastoid air cells: Clear. MRI is more sensitive for detecting acute processes such as infarct, and may be considered if clinica lly warranted. IMPRESSION: 1. No CT evidence of an acute intracranial abnormality. 2. Atrophy and chronic microvascular ischemic white matter changes. Small remote right frontal lobe i nfarct.
== END | disposition home or self-care (01) ==
LOC: RADCTMAIN 15:45
PROVIDERS: ATTEND Psychiatry & Neurology Neurology
DX: G31.9 Degenerative disease of nervous system, unspecified (principal); G93.89 Other specified disorders of brain; S06.0X0S Concussion without loss of consciousness, sequela; Z92.29 Personal history of other drug therapy; Z86.73 Personal history of transient ischemic attack (TIA), and cerebral infarction without residual deficits; X58.XXXS Exposure to other specified factors, sequela
CPT/HCPCS: 70450

== ENCOUNTER 2024-12-06 11:20 | Emergency (ER) | payer OTHER ==
[2024-12-06 11:33] VITALS: RESP 18
--- NOTE | 2024-12-06 12:00 | ED ---
General Adult HPI - General Chief complaint: Fall Stated complaint: fell - rib pain Time Seen by Provider: 12/06/24 11:42 Source: patient, family, RN notes reviewed Mode of arrival: wheelchair Limitations: no limitations - History of Present Illness Initial comments: Patient is a 79-year-old male present to the emergency department following a fall. Incident occurred around 830 or so this morning. Patient slipped on ice outside. Patient did strike his head on the left side. No loss of conscious. No headache. No confusion or new weakness. Patient is on Eliquis secondary to history of stroke. Patient is also on Plavix. Patient mostly complains of discomfort of his lower ribs bilaterally and states discomfort increases with deep breaths and movement. - Related Data Home Medications Medication Instructions Recorded Confirmed Gabapentin [Neurontin] 100 mg PO BID 12/28/17 04/27/22 Omeprazole [PriLOSEC] 20 mg PO AC-BRKFST 12/28/17 04/27/22 atenoloL [Tenormin] 50 mg PO DAILY 12/28/17 04/27/22 Alogliptin Benzoate [Alogliptin] 25 mg PO DAILY 03/20/19 04/27/22 Losartan [Cozaar] 50 mg PO DAILY 12/19/21 04/27/22 Albuterol Nebulized [Ventolin 2.5 mg INHALATION RT-Q6H PRN 04/27/22 04/27/22 Nebulized] Benzonatate [Tessalon Perle] 200 mg PO TID PRN 04/27/22 04/27/22 Empagliflozin [Jardiance] 25 mg PO DAILY 04/27/22 04/27/22 Lidocaine 5% Patch [Lidoderm 5% 1 patch TOPICAL DAILY PRN 04/27/22 04/27/22 Patch] Simvastatin [Zocor] 10 mg PO HS 04/27/22 04/27/22 glipiZIDE [Glucotrol] 20 mg PO BID 04/27/22 04/27/22 Previous Rx's Medication Instructions Recorded Apixaban [Eliquis] 5 mg PO BID #60 tab 05/01/22 Clopidogrel [Plavix] 75 mg PO DAILY #30 tab 05/01/22 Cyclobenzaprine [Flexeril] 10 mg PO TID PRN #12 tablet 12/06/24 Allergies Allergy/AdvReac Type Severity Reaction Status Date / Time No Known Allergies Allergy Verified 12/06/24 11:33 Review of Systems ROS Statement: Those systems with pertinent positive or pertinent negative responses have been documented in the HPI. ROS Other: All systems not noted in ROS Statement are negative. Constitutional: Denies: fever Eyes: Denies: eye pain ENT: Denies: ear pain Respiratory: Denies: cough, dyspnea Cardiovascular: Reports: as per HPI Gastrointestinal: Reports: as per HPI Skin: Denies: rash Neurological: Denies: headache, weakness, confusion (Patient has chronic confusion, unchanged per ) Past Medical History Past Medical History: CVA/TIA, Diabetes Mellitus, GERD/Reflux, Hyperlipidemia, Hypertension, Osteoarthritis (OA) Additional Past Medical History / Comment(s): hx migraines yrs ago, gout, History of Any Multi-Drug Resistant Organisms: None Reported Past Surgical History: Tonsillectomy Additional Past Surgical History / Comment(s): lens implant rt eye Past Anesthesia/Blood Transfusion Reactions: No Reported Reaction Past Psychological History: No Psychological Hx Reported Smoking Status: Former smoker Past Alcohol Use History: None Reported Past Drug Use History: None Reported - Past Family History Mother Family Medical History: Cancer Father Family Medical History: Diabetes Mellitus General Exam Limitations: no limitations General appearance: alert, in no apparent distress Head exam: Present: other (Abrasions to the nose and left infraorbital region without tenderness) Eye exam: Present: EOMI, other (Right eye opacities that patient has chronic visual changes from previous lung surgery) ENT exam: Present: normal oropharynx Neck exam: Present: normal inspection. Absent: tenderness Respiratory exam: Present: normal lung sounds bilaterally Cardiovascular Exam: Present: regular rate, normal rhythm GI/Abdominal exam: Present: soft, tenderness (Patient does have mild to moderate tenderness bilateral upper abdomen) Extremities exam: Present: normal inspection, full ROM. Absent: tenderness Neurological exam: Present: alert, CN II-XII intact. Absent: motor sensory deficit Expanded Neurological exam: Present: protecting the airway Patient oriented to: Present: person, place. Absent: time (Reported as normal) Psychiatric exam: Present: normal affect, normal mood Skin exam: Present: other (Skin tear right elbow) Course Vital Signs 12/06/24 11:27 Temperature 97.4 F L Pulse Rate 78 Respiratory 18 Rate Blood Pressure 113/71 O2 Sat by Pulse 94 L Oximetry EKG Findings - EKG Results: EKG: interpreted by ERMD (Borderline left axis. LVH with repolarization change. ), sinus rhythm Medical Decision Making - Medical Decision Making Was pt. sent in by a medical professional or institution (CINDY Calle, DATA TRANSCRIBER, urgent ca re, hospital, or retirement...) When possible be specific @ -No Did you speak to anyone other than the patient for history (EMS, parent, family, police, friend...)? What history was obtained from this source @ - is present and helps provide history of the fall Did you review nursing and triage notes (agree or disagree)? Why? @ -I reviewed and agree with nursing and triage notes Were old charts reviewed (outside hosp., previous admission, EMS record, old EKG, old radiological studies, urgent care reports/EKG's, retirement records)? Report findings @ -Previous MRI report as well as previous chest x-ray reviewed. There is concern for changes at the L1 level Differential Diagnosis (chest pain, altered mental status, abdominal pain women, abdominal pain men, vaginal bleeding, weakness, fever, dyspnea, syncope, headache, dizziness, GI bleed, back pain, seizure, CVA, palpatations, mental health, musculoskeletal)? @ -Differential Musculoskeletal Muscular strain, contusion, ligament sprain, fracture, arthritis, septic arthritis, bursitis, cellulitis, muscle spasm, nerve compression, DVT, arterial occlusion, herpes zoster, electrolyte abnormality, tumor.... This is not meant to be in all inclusive list EKG interpreted by me (3pts min.). @ -As above X-rays interpreted by me (1pt min.). @ -None done CT interpreted by me (1pt min.). @ -CT scan brain, cervical spine, chest abdomen pelvis without acute abnormality. L1 compression of indeterminate age U/S interpreted by me (1pt. min.). @ -None done What testing was considered but not performed or refused? (CT, X-rays, U/S, labs)? Why? @ -None What meds were considered but not given or refused? Why? @ -None Did you discuss the management of the patient with other professionals (professionals i.e. CINDY Calle, DATA TRANSCRIBER, lab, RT, psych nurse, social services manager, molder apprentice, teacher, workers' compensation hearings officer, case worker)? Give summary @ -No Was smoking cessation discussed for >3mins.? @ -No Was critical care preformed (if so, how long)? @ -No Were there social determinants of health that impacted care today? How? (Homelessness, low income, unemployed, alcoholism, drug addiction, transportation, low edu. Level, literacy, decrease access to med. care, long-term, rehab)? @ -No Was there de-escalation of care discussed even if they declined (Discuss DNR or withdrawal of care, Hospice)? DNR status @ -No What co-morbidities impacted this encounter? (DM, HTN, Smoking, COPD, CAD, Cancer, CVA, ARF, Chemo, Hep., AIDS, mental health diagnosis, sleep apnea, morbid obesity)? @ -None Was patient admitted / discharged? Hospital course, mention meds given and route, prescriptions, significant lab abnormalities, going to OR and other pert inent info. @ -Patient presents after fall. Code coag was called. Head CT unremarkable. Patient has indeterminant L1 compression with no tenderness on reevaluation. Previous x-ray with similar findings. Patient and family are updated on results and need for follow-up. Undiagnosed new problem with uncertain prognosis? @ -No Drug Therapy requiring intensive monitoring for toxicity (Heparin, Nitro, Insulin, Cardizem)? @ -No Were any procedures done? @ -No Diagnosis/symptom? @ -Fall, rib strain, head contusion on blood thinner Acute, or Chronic, or Acute on Chronic? @ -Acute, acute, acute Uncomplicated (without systemic symptoms) or Complicated (systemic symptoms)? @ -Default Side effects of treatment? @ -No Exacerbation, Progression, or Severe Exacerbation? @ -No Poses a threat to life or bodily function? How? (Chest pain, [place], [place], pneumonia, PE, COPD, DKA, ARF, appy, cholecystitis, CVA, Diverticulitis, Homicidal, Suicidal, threat to staff... and all critical care pts) @ -No - Lab Data Result diagrams: 12/06/24 12:06 12/06/24 12:06 Lab Results 12/06/24 12/06/24 12/06/24 Range/Units 12:06 12:06 12:06 WBC 16.9 H (3.8-10.6) k/uL RBC 5.75 (4.30-5.90) m/uL Hgb 16.7 (13.0-17.5) gm/dL Hct 52.4 (39.0-53.0) % MCV 91.1 (80.0-100.0) fL MCH 29.1 (25.0-35.0) pg MCHC 31.9 (31.0-37.0) g/dL RDW 13.3 (11.5-15.5) % Plt Count 124 L (150-450) k/uL MPV 8.6 Neutrophils % 85 % Lymphocytes % 8 % Monocytes % 4 % Eosinophils % 2 % Basophils % 0 % Neutrophils # 14.3 H (1.3-7.7) k/uL Lymphocytes # 1.4 (1.0-4.8) k/uL Monocytes # 0.7 (0-1.0) k/uL Eosinophils # 0.3 (0-0.7) k/uL Basophils # 0.1 (0-0.2) k/uL PT 12.1 (10.0-12.5) sec INR 1.1 (<1.2) APTT 24.3 (22.0-30.0) sec Sodium 138 (137-145) mmol/L Potassium 4.2 (3.5-5.1) mmol/L Chloride 104 (98-107) mmol/L Carbon Dioxide 25 (22-30) mmol/L Anion Gap 9 mmol/L BUN 31 H (9-20) mg/dL Creatinine 1.13 (0.66-1.25) mg/dL Est GFR (CKD-EPI)AfAm 72 (>60 ml/min/1.73 sqM) Est GFR (CKD-EPI)NonAf 63 (>60 ml/min/1.73 sqM) Glucose 166 H (74-99) mg/dL Plasma Lactic Acid Ricco (0.7-2.0) mmol/L Calcium 9.8 (8.4-10.2) mg/dL Total Bilirubin 0.8 (0.2-1.3) mg/dL AST 27 (17-59) U/L ALT 19 (4-49) U/L Alkaline Phosphatase 53 (38-126) U/L Total Protein 7.2 (6.3-8.2) g/dL Albumin 4.1 (3.5-5.0) g/dL 12/06/24 Range/Units 12:06 WBC (3.8-10.6) k/uL RBC (4.30-5.90) m/uL Hgb (13.0-17.5) gm/dL Hct (39.0-53.0) % MCV (80.0-100.0) fL MCH (25.0-35.0) pg MCHC (31.0-37.0) g/dL RDW (11.5-15.5) % Plt Count (150-450) k/uL MPV Neutrophils % % Lymphocytes % % Monocytes % % Eosinophils % % Basophils % % Neutrophils # (1.3-7.7) k/uL Lymphocytes # (1.0-4.8) k/uL Monocytes # (0-1.0) k/uL Eosinophils # (0-0.7) k/uL Basophils # (0-0.2) k/uL PT (10.0-12.5) sec INR (<1.2) APTT (22.0-30.0) sec Sodium (137-145) mmol/L Potassium (3.5-5.1) mmol/L Chloride (98-107) mmol/L Carbon Dioxide (22-30) mmol/L Anion Gap mmol/L BUN (9-20) mg/dL Creatinine (0.66-1.25) mg/dL Est GFR (CKD-EPI)AfAm (>60 ml/min/1.73 sqM) Est GFR (CKD-EPI)NonAf (>60 ml/min/1.73 sqM) Glucose (74-99) mg/dL Plasma Lactic Acid Ricco 1.5 (0.7-2.0) mmol/L Calcium (8.4-10.2) mg/dL Total Bilirubin (0.2-1.3) mg/dL AST (17-59) U/L ALT (4-49) U/L Alkaline Phosphatase (38-126) U/L Total Protein (6.3-8.2) g/dL Albumin (3.5-5.0) g/dL Disposition Clinical Impression: Fall, Strain of chest wall, Head injury Disposition: HOME SELF-CARE Condition: Stable Instructions (If sedation given, give patient instructions): Fall Prevention (ED), Head Injury (ED) Additional Instructions: Please follow-up with your primary care physician in the next couple of days for recheck. Return for confusion, weakness, difficulty breathing, worsening symptoms or other concerns. Prescription for muscle relaxer sent to pharmacy. Prescriptions: Cyclobenzaprine [Flexeril] 10 mg PO TID PRN #12 tablet PRN Reason: Pain Is patient prescribed a controlled substance at d/c from ED?: No Referrals: Aleksander Moscoso MD [Primary Care Provider] - 1-2 days Time of Disposition: 13:24
[2024-12-06 12:21] LABS: Basophils # (A) 0.1 k/uL (0-0.2); Basophils % (A) 0 %; Eosinophils # (A) 0.3 k/uL (0-0.7); Eosinophils % (A) 2 %; HCT 52.4 % (39.0-53.0); HGB 16.7 gm/dL (13.0-17.5); Lymphocytes # (A) 1.4 k/uL (1.0-4.8); Lymphocytes % (A) 8 %; MCH 29.1 pg (25.0-35.0); MCHC 31.9 g/dL (31.0-37.0); MCV 91.1 fL (80.0-100.0); Mean Platelet Volume 8.6; Monocytes # (A) 0.7 k/uL (0-1.0); Monocytes % (A) 4 %; Neutrophils # (A) 14.3 k/uL (1.3-7.7); Neutrophils % (A) 85 %; Platelet Count 124 k/uL (150-450); RBC 5.75 m/uL (4.30-5.90); RDW 13.3 % (11.5-15.5); WBC 16.9 k/uL (3.8-10.6)
[2024-12-06 12:31] LABS: INR 1.1 (<1.2); Partial Thromboplastin Time 24.3 sec (22.0-30.0); Prothrombin Time 12.1 sec (10.0-12.5)
[2024-12-06 12:33] LABS: ALT 19 U/L (4-49); AST 27 U/L (17-59); African American GFR (CKD) 72 (>60 ml/min/1.73 sqM); Albumin 4.1 g/dL (3.5-5.0); Alkaline Phosphatase 53 U/L (38-126); Anion Gap 9 mmol/L; Blood Urea Nitrogen 31 mg/dL (9-20); Calcium 9.8 mg/dL (8.4-10.2); Carbon Dioxide 25 mmol/L (22-30); Chloride 104 mmol/L (98-107); Glucose 166 mg/dL (74-99); Non-African American GFR(CKD) 63 (>60 ml/min/1.73 sqM); Potassium 4.2 mmol/L (3.5-5.1); Sodium 138 mmol/L (137-145); Total Bilirubin 0.8 mg/dL (0.2-1.3); Total Protein 7.2 g/dL (6.3-8.2)
--- NOTE | 2024-12-06 12:51 | CT ---
EXAMINATION TYPE: CT brain cspine wo con DATE OF EXAM: 12/06/2024 12:26 PM COMPARISON: 04/11/2024 CLINICAL INDICATION: Male, 79 years old with history of trauma, fall on ice/ on thinners TECHNIQUE: CT of the brain is performed utilizing 3 mm thick sections through the posterior fossa and 3 mm thick sections through the remaining calvarium. Study is performed within 24 hours of arrival to the hospital. Contrast used: mL of , (none if empty) CT DLP: 1367.7 mGycm, Automated exposure control for dose reduction was used. FINDINGS: No abnormal hyperdensity is present to suggest an acute intracranial hemorrhage. No mass lesion is evident. No acute infarcts are evident. There is some hypodensity within the subcortical white matter of the right mid parietal lobe compatible some chronic white matter ischemic changes present previously Ventricles and sulci are appropriate for the patient age. Paranasal sinuses and mastoid air cells within the [id number] are clear. IMPRESSIONS: 1. No acute intracranial process. Follow-up MRI can be performed as clinically indicated. 2. Chronic appearing subcortical white matter ischemic-type changes right parietal lobe CT cervical spine. COMPARISON: None TECHNIQUE: CT of the cervical spine is performed in the axial plane at 2 mm thick sections. Reconstr ucted images in the coronal, and sagittal plane are reviewed on the computer. FINDINGS: No acute fractures are evident. Vertebral body alignment is normal. There is narrowing of disc height present C4-5 C5-6 and C6-7. Vertebral body heights are preserved. No spinal canal stenosis is evident. Neural foraminal narrowing from uncovertebral hypertrophy is present at C4-5, C5-6, C6-7 IMPRESSION: 1. No acute osseous abnormality cervical spine. 2. Chronic appearing degenerative disc changes and foraminal narrowing discussed above [facility], , 12/06/2024 12:48 PM
--- NOTE | 2024-12-06 13:04 | CT ---
EXAMINATION TYPE: CT ChestAbdPelvis w con DATE OF EXAM: 12/06/2024 12:35 PM COMPARISON: CT chest 1228.2, MRI lumbar spine 04/29/2022 CLINICAL INDICATION: Male, 79 years old with history of trauma, fall on ice x 2/ on thinners TECHNIQUE: Axial images at 5 mm thick sections. Reconstructed images in the coronal plane. Delayed images through the kidneys. Contrast used:100ml mL of Isovue 300 with IV Contrast, (none if empty) Oral contrast used: without Oral Contrast (none if empty) CT DLP: 2457 mGycm, Automated exposure control for dose reduction was used. FINDINGS: CT CHEST: Portion of the thyroid visualized is normal. No suspicious lung nodules or focal infiltrates are present. Some pulmonary fibrosis is in the depend ent peripheral lungs. No enlarged mediastinal or hilar adenopathy is evident. The ascending aorta diameter at the level of the main pulmonary artery is 3.8 cm. The main pulmonary artery diameter at the bifurcation is 2.9 cm. Ribs appear intact. Thoracic Vertebral body heights are preserved. Alignment appears preserved. CT ABDOMEN: Liver: Normal Spleen: Normal Pancreas: Normal Adrenal glands: The adrenal glands are normal. Gallbladder: Normal Kidneys: No masses are evident. No hydronephrosis is present. There is a 3.8 cm cyst at the inferio r pole Delayed images were obtained through the kidneys, which remain unremarkable. Aorta: Vascular calcification is within the aorta. Inferior vena cava: Normal. CT PELVIS: Loops of bowel within the abdomen and pelvis are normal. There are loops of bowel which are incom pletely distended or lack oral contrast limiting their evaluation. Appendix: Not clearly identified. No dilated tubular structure or inflammatory changes are evident Urinary bladder: Appears to be bilateral distal ureteral stones without obstruction. This measures 0. 8 cm on left and 0.9 cm on the right. Image 115. Additional right ureteral vesicle junction stone rodrigo suring 1.4 cm may be present. Genitourinary structures: Prostate is prominent. Osseous structures: No suspicious lytic or sclerotic lesions. There is a superior endplate compression deformity of L1. This is an interval change from the compari son MRI 2021. Edema is not identified. This is age indeterminate. Approximately 0.5 cm posterior wall displacement of the superior endplate may be present. No significant AP spinal canal stenosis eviden t. There is approximately 30% loss of anterior vertebral body height. IMPRESSION: 1. Compression deformity of L1 of indeterminate age may have 0.5 cm of posterior wall displacement wi thout spinal canal stenosis. Posttraumatic change is not otherwise apparent. 2. Bilateral distal ureteral stones and a right ureteral vesicle junction stone without obstructions or hydroureter. [facility], , 12/06/2024 1:02 PM
[2024-12-06] MEDS: MORPHINE SULFATE 4 MG/ML SYRINGE IVP STA (13:43)
[2024-12-06] MEDS: DIPH,PERTUS(ACELL)TETVAC-LF 0.5 ML VIAL IM ONE (13:45)
[2024-12-06 13:55] VITALS: BP 115/77; PULSE 76; TEMP 98
== END 2024-12-06 13:55 | disposition home or self-care (01) ==
LOC: EC 11:20
DX: S29.011A Strain of muscle and tendon of front wall of thorax, initial encounter (principal); S09.90XA Unspecified injury of head, initial encounter; Z87.891 Personal history of nicotine dependence; Z23 Encounter for immunization; W00.0XXA Fall on same level due to ice and snow, initial encounter
CPT/HCPCS: 36415; 93005; 86900; 86901; 80053; 83605; 85025; 85610; 85730; 86850; 72125; 70450; 71260; 74177; 90715; 99285; 90471; 96374; J2270; Q9967